=== PATIENT | male | born 1960 | race Caucasian/White ===

== ENCOUNTER 2017-08-01 17:12 | Inpatient (IN) | payer MEDICARE, MEDICAID ==
--- NOTE | 2017-08-01 18:21 | ED Physician Chart ---
ED Chief Complaint/HPI - Patient Information Date Seen:: 08/01/17 Time Seen:: 17:45 Chief Complaint:: Agitation History of Present Illness:: onset x 3 days of agitation and aggressive behavior; no report of SIs, trauma, H /As, S/T, neck pain, C/P, SOB, Abd. Pain, A/N/V/D/C, fever, chills, or urinary s /s Allergies:: Allergies Allergy/AdvReac Type Severity Reaction Status Date / Time benztropine Allergy Verified 08/01/17 17:39 Vitals:: Vital Signs - 8 hr 08/01/17 17:43 Temp 98.2 F HR 76 RR 16 BP 138/82 O2 Sat % 94 Historian:: Patient, EMS Review:: Nurse's Note Reviewed, EMS run form Reviewed ED Review of Systems - Review of Systems General/Constitutional: No fever, No chills, No weight loss, No weakness, No diaphoresis, No edema, No loss of appetite Skin: No skin lesions, No rash, No bruising Head: No headache, No light-headedness Eyes: No loss of vision, No pain, No diplopia ENT: No earache, No nasal drainage, No sore throat, No tinnitus Neck: No neck pain, No swelling, No thyromegaly, No stiffness, No mass noted Cardio Vascular: No chest pain, No palpitations, No PND, No orthopnea, No edema Pulmonary: No SOB, No cough, No sputum, No wheezing GI: No nausea, No vomiting, No diarrhea, No pain, No melena, No hematochezia, No constipation, No hematemesis G/U: No dysuria, No frequency, No hematuria, No nacturia Musculoskeletal: No bone or joint pain, No back pain, No muscle pain Endocrine: No polyuria, No polydipsia Psychiatric: Prior psych history, No depression, No anxiety, No suicidal ideation, No homicidal ideation, Auditory hallucination, No visual hallucination Hematopoietic: No bruising, No lymphadenopathy Allergic/Immuno: No urticaria, No angioedema Neurological: No syncope, No focal symptoms, No weakness, No paresthesia, No headache, No seizure, No dizziness, No confusion, No vertigo ED Past Medical History - Past Medical History Obtainable: Yes Past Medical History: HTN, DM Family History: Diabetes Melitus, HTN Social History: Non Smoker, No Alcohol, No Drug Use, Single, Care Facility Surgical History: None Psychiatricy History: Schizophrenia, Bipolar Medication: Reviewed ED Physical Exam - Physical Examination General/Constitutional: Awake, Well-developed, well-nourished, Alert, No distress, GCS 15, Non-toxic appearing, Ambulatory Head: Atraumatic Eyes: Lids, conjuctiva normal, PERRL, EOMI Skin: Nl inspection, No rash, No skin lesions, No ecchymosis, Well hydrated, No lymphadenopathy ENMT: External ears, nose nl, TM canals nl, Nasal exam nl, Lips, teeth, gums nl , Oropharynx nl, Tonsils nl Neck: Nontender, Full ROM w/o pain, No JVD, No nuchal rigidity, No bruit, No mass, No stridor Other Neck comments:: supple; no meningeal signs; no cervical tenderness Respiratory: Nl effort/Exclusion, Clear to Auscultation, No Wheeze/Rhonchi/Rales Cardio Vascular: RRR, No murmur, gallop, rubs, NL S1 S2, Carotid/Femoral/Distal pulses equal bilaterally GI: No tenderness/rebounding/guarding, No organomegaly, No hernia, Normal BS's, Nondistended, No mass/bruits, No McBurney tenderness Other GI comments:: no pulsatile masses : No CVA tenderness Extremities: No tenderness or effusion, Full ROM, normal strength in all extremities, No edema, Normal digits & nails Neuro/Psych: Alert/oriented, DTR's symmetric, Normal sensory exam, Normal motor strength, Judgement/insight normal, Mood normal, Normal gait, No focal deficits Other Neuro/Psych comments:: + Psychomotor Agitation; Mood/Affect: Labile; no SIs Misc: Normal back, No paraspinal tenderness ED Septic Shock - . Is Septic Shock (SBP<90, OR Lactate>4 mmol\L) present?: No - <6hrs of presentation: Vital Signs: Vital Signs - 8 hr 08/01/17 17:43 Temp 98.2 F HR 76 RR 16 BP 138/82 O2 Sat % 94
[2017-08-01 18:42] LABS: % BASOPHILS 0.7 % (0.0-2.0); % EOSINOPHILS 2.1 % (0.0-5.0); % LYMPHOCYTES 37.1 % (20.0-50.0); % MONOCYTES 7.8 % (2.0-10.0); % NEUTROPHILS 52.3 % (40.0-80.0); EOSINOPHILE ABSOLUTE 0.1 Th/cmm (0.1-0.4); HEMATOCRIT 41.6 % (41.0-60); HEMOGLOBIN 13.9 gm/dL (12-16); LYMPHOCYTE ABSOLUTE 2.5 Th/cmm (1.5-3.0); MEAN CELL VOLUME 93.2 fl (80-99); MEAN CORPUSCULAR HEMOGLOBIN 31.1 pg (26.0-30.0); MEAN CORPUSCULAR HGB CONC 33.4 pg (28.0-36.0); MEAN PLATELET VOLUME 7.2 fl; MONOCYTE ABSOLUTE 0.5 Th/cmm (0.3-1.0); NEUTROPHILE ABSOLUTE 3.6 Th/cmm (1.8-8.0); PLATELET COUNT 232 Th/cmm (150-400); RED BLOOD COUNT 4.46 Mil/cmm (4.30-5.70); RED CELL DISTRIBUTION WIDTH 12.8 % (11.5-20.0); WHITE BLOOD COUNT 6.7 Th/cmm (4.8-10.8)
[2017-08-01 18:51] LABS: ALB/GLOB RATIO 1.1 (1.0-1.8); ALBUMIN 3.7 gm/dL (4.2-5.5); ALKALINE PHOSPHATASE 43 U/L (34-104); BILIRUBIN,TOTAL 0.4 mg/dL (0.3-1.0); BUN - UREA NITROGEN 19 mg/dL (7-25); CALCIUM SERUM 9.6 mg/dL (8.6-10.3); CARBON DIOXIDE 26.1 mEq/L (21.0-31.0); CHLORIDE 101 mEq/L (98-107); CHOLESTEROL 124 mg/dL (<200); CREATININE - SERUM 0.9 mg/dL (0.7-1.3); GFR AFRICAN-AMERICAN > 60.0 ml/min (>90); GFR NON AFRICAN-AMERICAN > 60.0 ml/min; GLUCOSE 110 mg/dL (70-105); HDL -HIGH DENSITY LIPOPROTEIN 39 mg/dL (23-92); POTASSIUM SERUM 4.1 mEq/L (3.5-5.1); SALICYLATES (ASPIRIN) < 25.0 mg/L (30.0-100.0); SGOT 36 U/L (13-39); SGPT/ALT 32 U/L (7-52); SODIUM SERUM 131 mEq/L (136-145); TOTAL PROTEIN,SERUM 7.2 gm/dL (6.0-8.3); TRIGLYCERIDES 132 mg/dL (<150)
[2017-08-01 18:53] LABS: ACETAMINOPHEN < 10.0 ug/mL (10.0-30.0)
[2017-08-01] MEDS ORDERED: Acetaminophen 500 MG TAB PO PRN (21:18)
[2017-08-01] MEDS ORDERED: Albuterol Nebulizer 2.5mg/3mL HHN PRN (21:18)
[2017-08-01 21:32] VITALS: BP 121/65
[2017-08-01] MEDS ORDERED: Magnesium Hydroxide (MOM) 30 mL UDC PO PRN (21:32)
[2017-08-01] MEDS ORDERED: Maalox 30 mL Cup PO PRN (21:32)
[2017-08-01] MEDS ORDERED: Hydrocodone/APAP 10 mg/325 mg Tab PO PRN (22:12)
[2017-08-02] MEDS: Multivitamin Tab PO SCH (08:19)
[2017-08-02] MEDS ORDERED: Non-Formulary Item 1 EA (Diclofenac Sodium [Voltaren] 2 GM) TP SCH (09:00)
[2017-08-02] MEDS: Insulin Detemir 100 units/mL 10mL Vial SUBQ SCH (09:00)
[2017-08-02] MEDS ORDERED: METFORMIN HCL PO SCH (09:00)
[2017-08-02] MEDS: Diltiazem CD 120 mg 24H PO SCH (11:00)
--- NOTE | 2017-08-02 16:26 | History & Physical ---
ADMIT DATE: 08/01/2017 HISTORY OF PRESENT ILLNESS: He was admitted on 08/01/2017 on the psych unit basically with increasing agitation and aggressive behaviour for last several days. The patient came to the Emergency Room, had a complete workup done, was essentially normal. Remainder medical problems, surgical problems patient was admitted. REVIEW OF SYSTEMS: Except agitation everything was normal. PAST MEDICAL HISTORY: Hypertension and diabetes, otherwise normal. PHYSICAL EXAMINATION: GENERAL: The patient awake, alert, oriented male patient. VITAL SIGNS: Noted in chart. HEAD: Normal. ENT: Normal. NECK: Supple, nontender. LUNGS: Clear. CARDIOVASCULAR SYSTEM: S1, S2 heard. ABDOMEN: Soft. Bowel sounds are present. CENTRAL NERVOUS SYSTEM: Grossly normal. DIAGNOSES: Acute agitation, acute psychosis, history of hypertension, history of diabetes mellitus. PLAN: The patient is being and I will follow medically and psychiatrically. Dr. Jensen follow the patient. JOB# [id number]
[2017-08-02] MEDS: Atorvastatin Calcium 10 MG TAB PO SCH (20:43)
[2017-08-02] MEDS ORDERED: Non-Formulary Item 1 EA (Atorvastatin Calcium [Lipitor] 1 TAB) PO SCH (21:00)
[2017-08-02] MEDS ORDERED: TRAZODONE HCL PO SCH (21:00)
[2017-08-02] MEDS: Lidocaine 5% Patch TD SCH (21:09)
--- NOTE | 2017-08-02 21:54 | Psychosocial Evaluation ---
DATE OF SERVICE: PSYCHIATRIC INITIAL EVALUATION AND MENTAL STATUS EXAM AGE: The patient's age is 56. SEX: Male. PHYSICIAN: Dr. Jensen. CHIEF COMPLAINT: Agitation. HISTORY OF PRESENT ILLNESS: The patient is a 56-year-old male, who was transferred from [facility] because of increased agitation and striking out behavior. The patient had disturbing behavior in the custodial and the staff was not able to handle his behavior. He was in irritable and angry mood and staff was not able to tolerate his behavior and they were not able to function with his disrupting to others and to the staff. The patient was transferred to the hospital. The patient is still hypertalkative and still had episodes of threatening others and is still extremely angry and irritable. PAST PSYCHIATRIC HISTORY: The patient has history of psychosis and the patient is taking trazodone and Zyprexa. PAST MEDICAL HISTORY: The patient has insulin-dependent diabetes mellitus. Also has arthritis and hypertension. SOCIAL HISTORY: The patient lives in [facility]. The patient is for many years. He has one son. He denies legal issues or abuse issues. He is on disability. ALLERGIES: COGENTIN. MENTAL STATUS EXAMINATION: The patient appears older than his stated age. Irritable mood. Anxious. Flat affect. Hypertalkative. Thought processes are circumstantial and tangential with occasional flight of ideas. The patient denies any auditory or visual hallucinations, but seems to be paranoid and delusional and seems to be at times responding and talking to self. The patient denies any thoughts of suicide or homicide. The patient is alert and oriented to time, place, person, and situation. Intact, immediate, recent and remote memories. Fair insight. Poor judgment. Seems to be of average intelligence based on his verbal ability. ASSESSMENT/PRIMARY DIAGNOSES: Chronic paranoid schizophrenia with acute exacerbation. TREATMENT PLAN: We will continue monitoring his behavior and his condition closely and continue current psychotropic medications and followup. [facility]# [id number]
[2017-08-03] MEDS: Diltiazem CD 120 mg 24H PO SCH (08:39)
[2017-08-03] MEDS: Multivitamin Tab PO SCH (08:40)
[2017-08-03] MEDS: OLANZapine 5 mg Oral Disintegrating Tab PO SCH (10:36)
[2017-08-03] MEDS: Insulin Detemir 100 units/mL 10mL Vial SUBQ SCH (10:44)
--- NOTE | 2017-08-03 11:36 | General Progress Note ---
Subjective - Review of Systems Events since last encounter: patient is irritable with no signs of pain Objective - Results Result Diagrams: 08/01/17 18:28 08/01/17 18: Recent Labs: Laboratory Last Values WBC 6.7 Th/cmm (4.8-10.8) 08/01/17 18: RBC 4.46 Mil/cmm (4.30-5.70) 08/01/17 18 Hgb 13.9 gm/dL (12-16) 08/01/17 Hct 41.6 % (41.0-60) 08/01/17 18 MCV 93.2 fl (80-99) 08/01/17 18: MCH 31.1 pg (26.0-30.0) H 08/01/17 MCHC Differential 33.4 pg (28.0-36.0) 08/01/17 RDW 12.8 % (11.5-20.0) 08/01/17 Plt Count 232 Th/cmm (150-400) 08/01/17 18 MPV 7.2 fl 08/01/17 18: Neutrophils % 52.3 % (40.0-80.0) 08/01/17: Lymphocytes % 37.1 % (20.0-50.0) 08/01/17 Monocytes % 7.8 % (2.0-10.0) 08/01/17: Eosinophils % 2.1 % (0.0-5.0) 08/01/17: Basophils % 0.7 % (0.0-2.0) 08/01/17 18: Sodium 131 mEq/L (136-145) L 08/01/17 18: Potassium 4.1 mEq/L (3.5-5.1) 08/01/17: Chloride 101 mEq/L (98-107) 08/01/17 18 Carbon Dioxide 26.1 mEq/L (21.0-31.0) 08/01/17 18 Anion Gap 8.0 (7.0-16.0) 08/01/17 18: BUN 19 mg/dL (7-25) 08/01/17 18 Creatinine 0.9 mg/dL (0.7-1.3) 08/01/17 18 Est GFR ( Amer) > 60.0 ml/min (>90) 08/01/17 18 Est GFR (Non-Af Amer) > 60.0 ml/min 08/01/17 18 BUN/Creatinine Ratio 21.1 08/01/17 18: Glucose 110 mg/dL (70-105) H 08/01/17 Hemoglobin A1c % 6.0 % (4.0-6.0) 08/01/17 18 Calcium 9.6 mg/dL (8.6-10.3) 08/01/17 Total Bilirubin 0.4 mg/dL (0.3-1.0) 08/01/17: AST 36 U/L (13-39) 08/01/17 ALT 32 U/L (7-52) 08/01/17: Alkaline Phosphatase 43 U/L (34-104) 08/01/17: Total Protein 7.2 gm/dL (6.0-8.3) 08/01/17: Albumin 3.7 gm/dL (4.2-5.5) L 08/01/17: Globulin 3.5 gm/dL 08/01/17 Albumin/Globulin Ratio 1.1 (1.0-1.8) 08/01/17 18: Triglycerides 132 mg/dL (<150) 08/01/17: Cholesterol 124 mg/dL (<200) 08/01/17: LDL Cholesterol Direct 61 mg/dL (75-193) L 08/01/17 18: HDL Cholesterol 39 mg/dL (23-92) 08/01/17 18: TSH 0.28 uIU/ml (0.34-5.60) L 08/01/17 Salicylates < 25.0 mg/L (30.0-100.0) L 08/01/17 18: Acetaminophen < 10.0 ug/mL (10.0-30.0) L 08/01/17 18: Ethyl Alcohol < 10 mg/dL (0-10) 08/01/17 18: - Physical Exam Vitals and I&O: Vital Signs Temp 97.2 F 08/02/17 19:56 Pulse 89 08/03/17 08:40 Resp 20 08/02/17 19:56 BP 139/81 08/03/17 08:40 Pulse Ox 97 08/02/17 19:56 Intake & Output 08/02/17 08/03/17 08/03/17 18:59 06:59 18:59 Intake Total 1600 240 Balance 1600 240 Intake: Oral 1600 240 Other: # Voids 3 2 Active Medications: Current Medications Acetaminophen (Tylenol Extra Strength) 500 mg PO Q6H PRN PRN Reason: Pain (Mild) Stop: 09/30/17 21:17 Acetaminophen (Tylenol) 650 mg PO Q4HR PRN PRN Reason: Mild Pain / Temp above 100 Stop: 09/30/17 21:31 Acetaminophen/Hydrocodone Bitart ([place] 10 Mg/325 Mg) 1 tab PO Q6H PRN PRN Reason: Pain (Severe) Stop: 09/30/17 22:11 Al Hydrox/Mg Hydrox/Simethicone (Maalox) 30 ml PO Q4HR PRN PRN Reason: GI DISTRESS Stop: 09/30/17 21:31 Albuterol Sulfate (Albuterol 2.5mg/3ml Neb Ud) 2.5 mg HHN Q6HRT PRN PRN Reason: Wheezing Stop: 09/30/17 21:17 Aspirin (Ecotrin) 81 mg PO DAILY [facility] Stop: 10/01/17 09:59 Last Admin: 08/03/17 08:40 Dose: 81 mg Atorvastatin Calcium (Lipitor) 20 mg PO [facility] PRN Reason: Protocol Stop: 10/01/17 20:59 Last Admin: 08/02/17 20:43 Dose: 20 mg Benztropine Mesylate (Cogentin) 0.5 mg PO Q12H PRN PRN Reason: eps/drooling Stop: 09/30/17 21:17 Diltiazem HCl (Cardizem Cd) 120 mg PO DAILY [facility] Stop: 10/01/17 09:59 Last Admin: 08/03/17 08:39 Dose: 120 mg Divalproex Sodium (Depakote Dr) 500 mg PO [facility] PRN Reason: Protocol Stop: 10/01/17 20:59 Last Admin: 08/02/17 20:44 Dose: 500 mg Docusate Sodium (Colace) 100 mg PO DAILY [facility] Stop: 10/01/17 09:59 Last Admin: 08/03/17 08:41 Dose: 100 mg Gabapentin (Neurontin) 300 mg PO TID [facility] Stop: 10/01/17 09:59 Last Admin: 08/03/17 08:39 Dose: 300 mg Ibuprofen (Motrin) 800 mg PO TID [facility] Stop: 10/01/17 08:59 Last Admin: 08/03/17 08:39 Dose: 800 mg Insulin Detemir (Levemir Insulin) 30 units SUBQ DAILY [facility] Stop: 10/01/17 08:59 Last Admin: 08/03/17 10:44 Dose: 30 units Lidocaine (Lidoderm 5% Patch) 1 patch TD HS [facility] Stop: 10/01/17 20:59 Last Admin: 08/02/17 21:09 Dose: 1 patch Lorazepam (Ativan) 0.5 mg PO Q4HR PRN; Protocol PRN Reason: Anxiety Stop: 08/31/17 21:31 Last Admin: 08/02/17 08:19 Dose: 0.5 mg Magnesium Hydroxide (Milk Of Magnesia) 30 ml PO HS PRN PRN Reason: Constipation Metformin HCl (Glucophage) 1,000 mg PO BIDWM [facility] Stop: 10/01/17 07:59 Last Admin: 08/03/17 08:41 Dose: 1,000 mg Methocarbamol (Robaxin) 1,000 mg PO Q8H PRN PRN Reason: Spasms Stop: 09/30/17 22:11 Miscellaneous (Diclofenac Sodium [Voltaren]) 2 gm TP TID [facility] Stop: 10/01/17 08:59 Multivitamins/Vitamin C (Theragran) 1 tab PO DAILY [facility] Stop: 10/01/17 08:59 Last Admin: 08/03/17 08:40 Dose: 1 tab Olanzapine (Zyprexa) 20 mg PO HS [facility] PRN Reason: Protocol Stop: 10/01/17 20:59 Last Admin: 08/02/17 21:09 Dose: 20 mg Olanzapine (Zyprexa Zydis) 5 mg PO DAILY [facility] PRN Reason: Protocol Stop: 10/02/17 08:59 Last Admin: 08/03/17 10:36 Dose: 5 mg Ondansetron HCl (Zofran Odt) 4 mg PO Q8H PRN PRN Reason: Nausea / Vomiting Stop: 09/30/17 22:11 Propranolol HCl (Inderal) 10 mg PO BID [facility] Stop: 10/01/17 08:59 Last Admin: 08/03/17 08:40 Dose: 10 mg Trazodone HCl (Desyrel) 400 mg PO HS [facility] PRN Reason: Protocol Stop: 10/01/17 20:59 Last Admin: 08/02/17 20:43 Dose: 400 mg Zolpidem Tartrate (Ambien) 5 mg PO HS PRN PRN Reason: Insomnia Stop: 09/30/17 21:31
[2017-08-03] MEDS: INSULIN ASPART SLIDING SCALE 100 UNITS/ML UNIT SUBQ SCH ×2 (16:16→20:32)
[2017-08-03] MEDS: Atorvastatin Calcium 10 MG TAB PO SCH (20:27)
[2017-08-03] MEDS: Lidocaine 5% Patch TD SCH (21:30)
[2017-08-04] MEDS: INSULIN ASPART SLIDING SCALE 100 UNITS/ML UNIT SUBQ SCH ×3 (06:39→17:52)
[2017-08-04] MEDS: Insulin Detemir 100 units/mL 10mL Vial SUBQ SCH (09:50)
[2017-08-04] MEDS: Multivitamin Tab PO SCH (09:53)
[2017-08-04] MEDS: OLANZapine 5 mg Oral Disintegrating Tab PO SCH (09:55)
[2017-08-04] MEDS: Diltiazem CD 120 mg 24H PO SCH (09:55)
--- NOTE | 2017-08-04 17:49 | Internal Medicine Prog Note ---
Internal Medicine Subjective - Subjective Service Date: 08/04/17 Patient seen and examined:: with staff Patient is:: awake, verbal, denies any new complaints Per staff patient has:: tolerating meds Internal Medicine Objective - Results Result Diagrams: 08/01/17 18:08/01/17 18: Recent Labs: Laboratory Last Values WBC 6.7 Th/cmm (4.8-10.8) 08/01/17 18: RBC 4.46 Mil/cmm (4.30-5.70) 08/01/17 18: Hgb 13.9 gm/dL (12-16) 08/01/17: Hct 41.6 % (41.0-60) 08/01/17: MCV 93.2 fl (80-99) 08/01/17: MCH 31.1 pg (26.0-30.0) H 08/01/17 MCHC Differential 33.4 pg (28.0-36.0) 08/01/17 RDW 12.8 % (11.5-20.0) 08/01/17 Plt Count 232 Th/cmm (150-400) 08/01/17 18: MPV 7.2 fl 08/01/17: Neutrophils % 52.3 % (40.0-80.0) 08/01/17: Lymphocytes % 37.1 % (20.0-50.0) 08/01/17: Monocytes % 7.8 % (2.0-10.0) 08/01/17: Eosinophils % 2.1 % (0.0-5.0) 08/01/17: Basophils % 0.7 % (0.0-2.0) 08/01/17: Sodium 131 mEq/L (136-145) L 08/01/17: Potassium 4.1 mEq/L (3.5-5.1) 08/01/17 18: Chloride 101 mEq/L (98-107) 08/01/17: Carbon Dioxide 26.1 mEq/L (21.0-31.0) 08/01/17: Anion Gap 8.0 (7.0-16.0) 08/01/17 18: BUN 19 mg/dL (7-25) 08/01/17 18: Creatinine 0.9 mg/dL (0.7-1.3) 08/01/17 Est GFR ( Amer) > 60.0 ml/min (>90) 08/01/17 18 Est GFR (Non-Af Amer) > 60.0 ml/min 08/01/17 18 BUN/Creatinine Ratio 21.1 08/01/17 18: Glucose 110 mg/dL (70-105) H 08/01/17 18 Hemoglobin A1c % 6.0 % (4.0-6.0) 08/01/17 Calcium 9.6 mg/dL (8.6-10.3) 08/01/17 Total Bilirubin 0.4 mg/dL (0.3-1.0) 08/01/17: AST 36 U/L (13-39) 08/01/17: ALT 32 U/L (7-52) 08/01/17: Alkaline Phosphatase 43 U/L (34-104) 08/01/17: Total Protein 7.2 gm/dL (6.0-8.3) 08/01/17 Albumin 3.7 gm/dL (4.2-5.5) L 08/01/17 Globulin 3.5 gm/dL 08/01/17 Albumin/Globulin Ratio 1.1 (1.0-1.8) 08/01/17 18: Triglycerides 132 mg/dL (<150) 08/01/17: Cholesterol 124 mg/dL (<200) 08/01/17 18 LDL Cholesterol Direct 61 mg/dL (75-193) L 08/01/17 18 HDL Cholesterol 39 mg/dL (23-92) 08/01/17 TSH 0.28 uIU/ml (0.34-5.60) L 08/01/17 18 Salicylates < 25.0 mg/L (30.0-100.0) L 08/01/17 18: Acetaminophen < 10.0 ug/mL (10.0-30.0) L 08/01/17 18:28 Ethyl Alcohol < 10 mg/dL (0-10) 08/01/17 18:28 RPR NONREACTIVE (NONREACTIVE) 08/01/17 18:28 - Physical Exam Vitals and I&O: Vital Signs Temp 98.2 F 08/04/17 14:14 Pulse 86 08/04/17 14:14 Resp 20 08/04/17 14:14 BP 103/64 08/04/17 14:14 Pulse Ox 98 08/04/17 14:14 Active Medications: Current Medications Acetaminophen (Tylenol Extra Strength) 500 mg PO Q6H PRN PRN Reason: Pain (Mild) Stop: 09/30/17 21:17 Acetaminophen (Tylenol) 650 mg PO Q4HR PRN PRN Reason: Mild Pain / Temp above 100 Stop: 09/30/17 21:31 Acetaminophen/Hydrocodone Bitart ([place] 10 Mg/325 Mg) 1 tab PO Q6H PRN PRN Reason: Pain (Severe) Stop: 09/30/17 22:11 Last Admin: 08/03/17 22:32 Dose: 1 tab Al Hydrox/Mg Hydrox/Simethicone (Maalox) 30 ml PO Q4HR PRN PRN Reason: GI DISTRESS Stop: 09/30/17 21:31 Albuterol Sulfate (Albuterol 2.5mg/3ml Neb Ud) 2.5 mg HHN Q6HRT PRN PRN Reason: Wheezing Stop: 09/30/17 21:17 Aspirin (Ecotrin) 81 mg PO DAILY [facility] Stop: 10/01/17 09:59 Last Admin: 08/04/17 09:51 Dose: 81 mg Atorvastatin Calcium (Lipitor) 20 mg PO HS [facility] PRN Reason: Protocol Stop: 10/01/17 20:59 Last Admin: 08/03/17 20:27 Dose: 20 mg Benztropine Mesylate (Cogentin) 0.5 mg PO Q12H PRN PRN Reason: eps/drooling Stop: 09/30/17 21:17 Diltiazem HCl (Cardizem Cd) 120 mg PO DAILY [facility] Stop: 10/01/17 09:59 Last Admin: 08/04/17 09:55 Dose: 120 mg Divalproex Sodium (Depakote Dr) 500 mg PO HS [facility] PRN Reason: Protocol Stop: 10/01/17 20:59 Last Admin: 08/03/17 20:28 Dose: 500 mg Docusate Sodium (Colace) 100 mg PO DAILY [facility] Stop: 10/01/17 09:59 Last Admin: 08/04/17 09:53 Dose: 100 mg Gabapentin (Neurontin) 300 mg PO TID [facility] Stop: 10/01/17 09:59 Last Admin: 08/04/17 14:54 Dose: 300 mg Ibuprofen (Motrin) 800 mg PO TID [facility] Stop: 10/01/17 08:59 Last Admin: 08/04/17 14:54 Dose: 800 mg Insulin Aspart (Novolog Insulin Sliding Scale) 0 units SUBQ ACHS [facility] PRN Reason: Protocol Stop: 10/02/17 16:29 Last Admin: 08/04/17 11:49 Dose: Not Given Insulin Detemir (Levemir Insulin) 30 units SUBQ DAILY [facility] Stop: 10/01/17 08:59 Last Admin: 08/04/17 09:50 Dose: 30 units Lidocaine (Lidoderm 5% Patch) 1 patch TD HS [facility] Stop: 10/01/17 20:59 Last Admin: 08/03/17 21:30 Dose: 1 patch Lorazepam (Ativan) 0.5 mg PO Q4HR PRN; Protocol PRN Reason: Anxiety Stop: 08/31/17 21:31 Last Admin: 08/03/17 20:27 Dose: 0.5 mg Magnesium Hydroxide (Milk Of Magnesia) 30 ml PO HS PRN PRN Reason: Constipation Metformin HCl (Glucophage) 1,000 mg PO BIDWM [facility] Stop: 10/01/17 07:59 Last Admin: 08/04/17 09:00 Dose: 1,000 mg Methocarbamol (Robaxin) 1,000 mg PO Q8H PRN PRN Reason: Spasms Stop: 09/30/17 22:11 Last Admin: 08/03/17 22:33 Dose: 1,000 mg Miscellaneous (Diclofenac Sodium [Voltaren]) 2 gm TP TID [facility] Stop: 10/01/17 08:59 Multivitamins/Vitamin C (Theragran) 1 tab PO DAILY [facility] Stop: 10/01/17 08:59 Last Admin: 08/04/17 09:53 Dose: 1 tab Mupirocin (Bactroban Oint) 1 appl NS BID [facility] Stop: 08/08/17 09:01 Last Admin: 08/04/17 09:55 Dose: 1 appl Olanzapine (Zyprexa) 20 mg PO HS [facility] PRN Reason: Protocol Stop: 10/01/17 20:59 Last Admin: 08/03/17 20:28 Dose: 20 mg Olanzapine (Zyprexa Zydis) 5 mg PO DAILY [facility] PRN Reason: Protocol Stop: 10/02/17 08:59 Last Admin: 08/04/17 09:55 Dose: 5 mg Ondansetron HCl (Zofran Odt) 4 mg PO Q8H PRN PRN Reason: Nausea / Vomiting Stop: 09/30/17 22:11 Propranolol HCl (Inderal) 10 mg PO BID [facility] Stop: 10/01/17 08:59 Last Admin: 08/04/17 09:53 Dose: 10 mg Trazodone HCl (Desyrel) 400 mg PO HS [facility] PRN Reason: Protocol Stop: 10/01/17 20:59 Last Admin: 08/03/17 20:25 Dose: 400 mg Zolpidem Tartrate (Ambien) 5 mg PO HS PRN PRN Reason: Insomnia Stop: 09/30/17 21:31 Last Admin: 08/03/17 20:28 Dose: 5 mg General: alert HEENT: NC/AT, PERRLA Neck: Supple Lungs: CTAB Abdomen: soft, non-tender, non-distended Extremities: clear Neurological: alert Internal Medicine Assmt/Plan - Assessment Assessment: acute agitation acute psychosis htn dm - Plan Plan: continue current orders
--- NOTE | 2017-08-05 19:57 | Discharge Summary ---
DATE OF DISCHARGE: DATE OF ADMISSION: 08/01/2017 DATE OF DISCHARGE: 08/04/2017 PATIENT'S AGE: 56. SEX: Male. PHYSICIAN: Parag Jensen M.D., M.P.H. FINAL DIAGNOSES: PRIMARY DIAGNOSES: Schizoaffective disorder, bipolar type, with psychotic features. REASON FOR HOSPITALIZATION: The patient was admitted to the hospital because of increased agitation and striking out behavior and disturbing the milieu in [facility] where he has been living. HOSPITAL COURSE: The patient continued to be agitated and in irritable mood. The patient also continued to take Zyprexa in a dose of 20 mg every day as well as trazodone 400 mg at bedtime. Gradually, the patient was calmer and he was less agitated and less irritable. The patient returned back to [facility]. Physical exam of the patient showed that the patient has insulin-dependent diabetes as well as hypertension and arthritis. No major medical problems while in the unit. AFTER DISCHARGE PLANS: The patient returned to [facility] with plans for outpatient treatment there. EXPECTED OUTCOME AFTER DISCHARGE: Guarded because of his history of irritability and mood. JOB# [id number]
--- NOTE | 2017-08-05 22:20 | Progress Notes ---
DATE: 08/03/2017 SUBJECTIVE: Chart reviewed and the patient interviewed. Also discussed the patient's condition with the staff and reviewed records and labs. The patient is still restless and is still easily agitated. The patient also is yelling and screaming. The patient also is interacting more with others, but at the same time, is at times threatening and is still loud. Otherwise, the patient is compliant with taking his medications with no side effects of medications. ASSESSMENT: The patient is still psychotic and can be dangerous to others. TREATMENT PLAN: We will increase Zyprexa to 5 mg in the morning and 20 mg at bedtime and we will continue to follow up his behavior and his condition closely. JOB# [id number]
== END 2017-08-04 20:20 | disposition home or self-care (01) | DRG 885 ==
LOC: ER 17:12 → GERO2 20:09
PROVIDERS: ADMIT Psychiatry & Neurology Psychiatry; ATTEND Psychiatry & Neurology Psychiatry
DX: F25.0 Schizoaffective disorder, bipolar type (principal); E11.9 Type 2 diabetes mellitus without complications; F23 Brief psychotic disorder; I10 Essential (primary) hypertension; M19.90 Unspecified osteoarthritis, unspecified site; Z88.8 Allergy status to other drugs, medicaments and biological substances; Z83.3 Family history of diabetes mellitus; Z82.49 Family history of ischemic heart disease and other diseases of the circulatory system
CPT/HCPCS: 36415-UA; 80053-TC; 80061-TC; 80320-TC; 80329-TC; 83036-90; 84443-TC; 85025-TC; 86592-TC; 93005; J1815; J7051

== ENCOUNTER 2017-12-17 12:07 | Inpatient (IN) | payer MEDICARE, MEDICAID ==
--- NOTE | 2017-12-17 12:31 | ED Physician Chart ---
ED Chief Complaint/HPI - Patient Information Date Seen:: 12/17/17 Time Seen:: 12:15 Chief Complaint:: agitation History of Present Illness:: 57 yr old male for psych eval takes zyprexa for bipolar with schizo affective disorder for increased agitation Allergies:: Allergies Allergy/AdvReac Type Severity Reaction Status Date / Time benztropine Allergy Verified 08/01/17 17:39 Vitals:: Vital Signs - 8 hr 12/17/17 12:09 Temp 97 F HR 63 RR 18 BP 148/85 O2 Sat % 94 ED Review of Systems - Review of Systems General/Constitutional: No fever, No chills, No weight loss, No weakness, No diaphoresis, No edema, No loss of appetite Skin: No skin lesions, No rash, No bruising Head: No headache, No light-headedness Eyes: No loss of vision, No pain, No diplopia ENT: No earache, No nasal drainage, No sore throat, No tinnitus Neck: No neck pain, No swelling, No thyromegaly, No stiffness, No mass noted Cardio Vascular: No chest pain, No palpitations, No PND, No orthopnea, No edema Pulmonary: No SOB, No cough, No sputum, No wheezing GI: No nausea, No vomiting, No diarrhea, No pain, No melena, No hematochezia, No constipation, No hematemesis G/U: No dysuria, No frequency, No hematuria Musculoskeletal: No bone or joint pain, No back pain, No muscle pain Endocrine: No polyuria, No polydipsia Psychiatric: Prior psych history Hematopoietic: No bruising, No lymphadenopathy Allergic/Immuno: No urticaria, No angioedema Neurological: No syncope, No focal symptoms, No weakness, No paresthesia, No headache, No seizure, No dizziness, No confusion, No vertigo ED Past Medical History - Past Medical History Past Medical History: Dementia, Other (bipolar disorder schizoaffective disorder ) Family Medical History - Family Member Mother History Unknown: Yes Ethnicity: Unknown Living Status: Unknown ED Physical Exam - Physical Examination General/Constitutional: Awake, Well-developed, well-nourished, Alert, No distress, GCS 15, Non-toxic appearing, Ambulatory Head: Atraumatic Eyes: Lids, conjuctiva normal, PERRL, EOMI Skin: Nl inspection, No rash, No skin lesions, No ecchymosis, Well hydrated, No lymphadenopathy ENMT: External ears, nose nl, Nasal exam nl, Lips, teeth, gums nl Neck: Nontender, Full ROM w/o pain, No JVD, No nuchal rigidity, No bruit, No mass, No stridor Respiratory: Nl effort/Exclusion, Clear to Auscultation, No Wheeze/Rhonchi/Rales Cardio Vascular: RRR, No murmur, gallop, rubs, NL S1 S2 GI: No tenderness/rebounding/guarding, No organomegaly, No hernia, Normal BS's, Nondistended, No mass/bruits, No McBurney tenderness : No CVA tenderness Extremities: No tenderness or effusion, Full ROM, normal strength in all extremities, No edema, Normal digits & nails Neuro/Psych: Alert/oriented, DTR's symmetric, Normal sensory exam, Normal motor strength, Judgement/insight normal, Mood normal, Normal gait, No focal deficits Misc: Normal back, No paraspinal tenderness ED Assessment - Assessment General Assessment: schizoaffective disorder on zyprexa with agitation ED Septic Shock - . Is Septic Shock (SBP<90, OR Lactate>4 mmol\L) present?: No - <6hrs of presentation: Vital Signs: Vital Signs - 8 hr 12/17/17 12:09 Temp 97 F HR 63 RR 18 BP 148/85 O2 Sat % 94 ED Reassessment (Disposition) - Diagnosis Diagnosis:: schizoaffective disorder for psych eval - Patient Disposition Discharge/Transfer:: Acute Care w/in this hosp
[2017-12-17 12:39] LABS: URINE MICROSCOPIC INDICATED? YES; URINE SOURCE CLEAN C
[2017-12-17 12:42] LABS: % BASOPHILS 0.7 % (0.0-2.0); % EOSINOPHILS 1.5 % (0.0-5.0); % LYMPHOCYTES 46.5 % (20.0-50.0); % MONOCYTES 7.5 % (2.0-10.0); % NEUTROPHILS 43.8 % (40.0-80.0); EOSINOPHILE ABSOLUTE 0.1 Th/cmm (0.1-0.4); HEMATOCRIT 42.2 % (41.0-60); HEMOGLOBIN 14.2 gm/dL (12-16); LYMPHOCYTE ABSOLUTE 2.6 Th/cmm (1.5-3.0); MEAN CELL VOLUME 94.6 fl (80-99); MEAN CORPUSCULAR HEMOGLOBIN 31.7 pg (26.0-30.0); MEAN CORPUSCULAR HGB CONC 33.5 pg (28.0-36.0); MEAN PLATELET VOLUME 7.2 fl; MONOCYTE ABSOLUTE 0.4 Th/cmm (0.3-1.0); NEUTROPHILE ABSOLUTE 2.5 Th/cmm (1.8-8.0); PLATELET COUNT 240 Th/cmm (150-400); RED BLOOD COUNT 4.46 Mil/cmm (4.30-5.70); RED CELL DISTRIBUTION WIDTH 12.7 % (11.5-20.0); WHITE BLOOD COUNT 5.6 Th/cmm (4.8-10.8)
[2017-12-17 12:52] LABS: URINE BILIRUBIN NEGATIVE (NEGATIVE); URINE BLOOD NEGATIVE (NEGATIVE); URINE GLUCOSE (UA) NEGATIVE (NEGATIVE); URINE KETONE NEGATIVE (NEGATIVE); URINE LEUKOCYTE ESTERASE NEGATIVE (NEGATIVE); URINE NITRATE NEGATIVE (NEGATIVE); URINE PH 7.5 (4.6 - 8.0); URINE PROTEIN NEGATIVE (NEGATIVE); URINE UROBILINOGEN 0.2 E.U./dL (0.2 - 1.0)
[2017-12-17 12:55] LABS: ALB/GLOB RATIO 1.2 (1.0-1.8); ALBUMIN 3.6 gm/dL (4.2-5.5); ALKALINE PHOSPHATASE 34 U/L (34-104); ANION GAP 12.1 (7.0-16.0); BILIRUBIN,TOTAL 0.4 mg/dL (0.3-1.0); BUN - UREA NITROGEN 15 mg/dL (7-25); CALCIUM SERUM 9.6 mg/dL (8.6-10.3); CARBON DIOXIDE 25.1 mEq/L (21.0-31.0); CHLORIDE 105 mEq/L (98-107); CREATININE - SERUM 0.7 mg/dL (0.7-1.3); GFR AFRICAN-AMERICAN > 60.0 ml/min (>90); GFR NON AFRICAN-AMERICAN > 60.0 ml/min; GLUCOSE 106 mg/dL (70-105); POTASSIUM SERUM 4.2 mEq/L (3.5-5.1); SGOT 42 U/L (13-39); SGPT/ALT 39 U/L (7-52); SODIUM SERUM 138 mEq/L (136-145); TOTAL PROTEIN,SERUM 6.6 gm/dL (6.0-8.3)
[2017-12-17 12:56] LABS: URINE CLARITY CLEAR (CLEAR); URINE COLOR YELLOW
[2017-12-17 13:00] LABS: URINE BACTERIA RARE /hpf (NONE SEEN); URINE EPITHELIAL CELLS RARE /lpf (FEW); URINE RBC NONE SEEN /hpf (0-5); URINE WBC 0-2 /hpf (0-5)
[2017-12-17 13:12] LABS: AMPHETAMINE URINE NEGATIVE (NEGATIVE); BARBITURATES URINE NEGATIVE (NEGATIVE); BENZODIAZEPINES QUAL URINE NEGATIVE (NEGATIVE); CANNABINOID THC NEGATIVE (NEGATIVE); COCAINE METABOLITE QUAL URINE NEGATIVE (NEGATIVE); METHADONE URINE NEGATIVE (NEGATIVE); METHAMPHETAMINES QUAL URINE NEGATIVE (NEGATIVE); OPIATES (MORPHINE) QUAL. URINE POSITIVE (NEGATIVE); PHENCYCLIDINE (PCP) URINE NEGATIVE (NEGATIVE); TRICYCLICS (TCA) QUAL. URINE NEGATIVE (NEGATIVE)
[2017-12-17 16:58] VITALS: BP 112/75
[2017-12-17] MEDS: Albuterol Nebulizer 2.5mg/3mL HHN PRN (17:16)
[2017-12-17] MEDS ORDERED: Maalox 30 mL Cup PO PRN (18:20)
[2017-12-17] MEDS ORDERED: Magnesium Hydroxide (MOM) 30 mL UDC PO PRN (18:20)
[2017-12-17] MEDS ORDERED: Non-Formulary Item 1 EA (Atorvastatin Calcium [Lipitor] 40 MG) PO SCH (21:00)
[2017-12-17] MEDS ORDERED: Non-Formulary Item 1 EA (Melatonin [Melatonin] 3 MG) PO SCH (21:00)
--- NOTE | 2017-12-18 08:44 | Diagnostic Imaging Report ---
Portable chest x-ray HISTORY: Shortness of breath The overall heart size is difficult to assess with portable technique in a poor inspiration. No acute focal pulmonary processes. Diffuse degenerative changes seen throughout the spine. Chronic deformity noted about the right shoulder region. IMPRESSION: 1. No acute pulmonary processes
[2017-12-18] MEDS: Aspirin 81mg Chewable Tab PO SCH (08:47)
[2017-12-18] MEDS: Multivitamin Tab PO SCH (08:49)
[2017-12-18] MEDS: Nicotine 14 mg/24 hr Tdm TD SCH (08:54)
[2017-12-18] MEDS ORDERED: Non-Formulary Item 1 EA (Metformin Hcl [Fortamet] 1,000 MG) PO SCH (09:00)
[2017-12-18] MEDS ORDERED: GLIPIZIDE PO SCH ×2 (09:00→17:00)
[2017-12-18] MEDS ORDERED: PROPRANOLOL HCL MC SCH (09:00)
[2017-12-18] MEDS: Albuterol Nebulizer 2.5mg/3mL HHN PRN ×2 (09:58→15:21)
--- NOTE | 2017-12-18 11:04 | History & Physical ---
ADMIT DATE: 12/18/2017 PATIENT'S IDENTIFICATION: A 57-year-old male. CHIEF COMPLAINT: "I got mad on female employee in a [facility]." HISTORY OF PRESENT ILLNESS: A 57-year-old resident of [facility], has history of type 2 diabetes, COPD, hypertension, psychotic disorder, history of BPH without bladder outlet obstruction, resides at [facility], brought into the Emergency Room from [facility] after the patient was noted to have aggressive behavior at [facility]. The patient was seen by Emergency Room MD and subsequently admitted here in Geropsych Unit for further treatment. PAST MEDICAL HISTORY: Remarkable for: 1. Diabetes. 2. Hypertension. 3. Seizure disorder. 4. Bipolar disorder. 5. Psychotic disorder. 6. Depression. 7. DJD. 8. Chronic pain syndrome. 9. Questionable dementia. MEDICATIONS: In a [facility], the patient is taking multiple medications, which includes Tylenol, aspirin, Colace, Usk, trazodone, nebulizer treatment with albuterol and Atrovent, Lipitor, Depakote, gabapentin, glipizide, melatonin, Namenda, metformin, nicotine patch, Zyprexa, propranolol, and Flomax. ALLERGIES: The patient is allergic to COGENTIN. SOCIAL HISTORY: The patient lives in a [facility]. The patient has history of smoking cigarette. No alcohol or drug abuse. FAMILY MEDICAL HISTORY: Remarkable for diabetes. REVIEW OF SYSTEMS: The patient is complaining of pain at the knee and back area. PAST SURGICAL HISTORY: Remarkable for knee replacement as well as exploratory laparotomy for perforated bowel. REVIEW OF SYSTEMS: The patient denies any headache, blurred vision, double vision, dysphagia, odynophagia, runny nose, stuffy nose, fever, chills, cough, chest pain, shortness of breath, palpitation, dizziness, nausea, vomiting, diarrhea, dysuria, hematuria, hematochezia, melena. No seizure or syncopal episode. PHYSICAL EXAMINATION: GENERAL: The patient is alert, awake, oriented, lying in the bed without any acute distress. VITAL SIGNS: Temperature 97.2, pulse 90, respiratory rate is 20, blood pressure is 130/70. HEENT: Normocephalic, atraumatic. Extraocular muscles are intact. Tongue was pink and coated. Poor dentition noted. No oral lesion noted. No sinus tenderness. External auditory canal and tympanic membranes are well visualized. NECK: Supple. No JVD. No hepatojugular reflux. No lymphadenopathy, thyromegaly, or carotid bruit. HEART: Both heart sounds are regular. No S3. No S4. No murmur. CHEST AND LUNGS: Equal in expansion. No expiratory wheezing. ABDOMEN: Soft. Previously done exploratory laparotomy surgical scar noted. Bowel sounds present. No hepatosplenomegaly. No palpable mass. EXTREMITIES: No edema, no cyanosis, no clubbing. Peripheral pulses are +1. No calf tenderness noted. NEUROLOGIC: Alert, awake, following commands. 2-12 cranial nerves are intact. Power in upper and lower extremities 5+ and sensory touch intact. [place] in both toes are going down. No cerebral sign. AVAILABLE DIAGNOSTIC DATA: Urinalysis is normal. Alkaline phosphatase is normal. SGOT, SGPT is 42 and 39, albumin of 3.6, glucose of 106, BUN and creatinine are 15 and 0.7. CBC, white count of 5.6, hemoglobin 14.2, platelet count 240. Urine drug screen is positive for opiates. EKG is normal sinus rhythm, no ST-T changes representing acute ischemia. Chest x-ray done in the Emergency Room, which is no acute cardiopulmonary disease noted. CLINICAL IMPRESSION: 1. Diabetes mellitus. 2. Hypertension. 3. Hyperlipidemia. 4. Chronic pain syndrome. 5. Status post exploratory laparotomy for perforated bowel. 6. History of right total knee replacement. 7. Degenerative joint disease. 8. Psychotic disorder. 9. Seizure disorder. 10. Questionable dementia. 11. Fall risk. 12. Smoking, nicotine dependency. 13. Benign prostatic hypertrophy. PLAN: 1. Psychiatric evaluation and management deferred to psychiatrist. 2. Resume metformin and glipizide. 3. Glucoscan a.c. and at bedtime 4. Sliding scale insulin. 5. Statin as the patient is taking. 6. Seizure medication. 7. Seizure precautions. 8. P.r.n. inhalation therapy. 9. Continue nicotine patch. 10. Symptoms management. 11. Medication management. 12. Watch for bladder outlet obstruction. 13. Continue Flomax. 14. Fall precautions. 15. Care plan reviewed and discussed with staff. JOB# [id number]
--- NOTE | 2017-12-18 13:44 | Psychiatric Evaluation ---
DATE OF SERVICE: 12/17/2017 IDENTIFYING INFORMATION: The patient is a 57-year-old male. CHIEF COMPLAINT: "I had a bad interaction with staff, it was a misunderstanding." HISTORY OF PRESENT ILLNESS: The patient was sent from [place] with a history of schizoaffective disorder, bipolar disorder, has been reported to be agitated. The patient when I talked to him, he was vague. He was trying to minimize the information that to his admission and he wanted to leave. I explained to him that if he plans to go to the same facility that probably, they are not going to take him right away, they want to see that there has been some progress and he agreed to stay. He reports that in general, he sleeps well, eats well. He still is not a very good historian. PAST PSYCHIATRIC HISTORY: The patient is with a history of bipolar disorder and also possible dementia; however, the patient denies prior suicide attempts, denies prior hospitalization; however, he is not a reliable historian. MEDICAL HISTORY: Deferred to the medical doctor. ALLERGIES: THE PATIENT IS ALLERGIC TO BENZTROPINE, so obviously it seemed like he does have a history and he is on Zyprexa. MEDICATIONS: The patient is on Depakote 500 mg in the morning, Neurontin 400 mg 3 times a day and he is diabetic. He is on Namenda 5 mg daily. The patient is on olanzapine, Zyprexa 10 mg at bedtime and Inderal 5 mg twice a day. FAMILY AND SOCIAL HISTORY: The patient reports that he is , was living with his father, but going to the nursing facility. 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 He has 1 son and grandchildren. He reports high school education. He denies family psychiatric disorder. The patient is a poor historian. MENTAL STATUS EXAMINATION: The patient is appropriately dressed, not well groomed. His mood is depressed. Affect is constricted. Thoughts are concrete. Speech is clear. He was alert and oriented to place. He is not sure to tell me what led to his admission. He was minimizing the events that led to the admission. He reports no auditory or visual hallucination or paranoia. He reported that he sleeps well, eats well. However, seemed like he was trying to make a good case for him to be leaving. He is long-term is as per his age, but recent memory is poor. He is unable to tell me details of what led to him coming here. He is not sure of the exact date. He believes this is 12/20/2017. He is not sure of the exact date. He denies substance abuse. His insight and judgment is impaired. His short term memory is poor. Long-term memory was good, age and date of . IMPRESSION: AXIS I: Psychosis, not otherwise specified. Dementia, rule out schizoaffective disorder versus bipolar disorder. His assets, he accepted treatment. Negative ____. INITIAL TREATMENT PLAN: The patient will be continued on medication. We will adjust the medication as needed. We will do group therapy, milieu therapy, and individual therapy. ESTIMATED LENGTH OF STAY: 3-7 days. DISCHARGE CRITERIA: Decreasing agitation, feeling better after discharge, outpatient treatment. JOB# [id number]
[2017-12-19] MEDS: Multivitamin Tab PO SCH (08:47)
[2017-12-19] MEDS: Aspirin 81mg Chewable Tab PO SCH (08:48)
[2017-12-19] MEDS: Nicotine 14 mg/24 hr Tdm TD SCH (08:48)
[2017-12-19] MEDS: Albuterol Nebulizer 2.5mg/3mL HHN PRN ×2 (09:07→19:27)
--- NOTE | 2017-12-19 18:28 | Progress Notes ---
DATE: IDENTIFICATION: This is a 57-year-old male. SUBJECTIVE: The patient seen and examined. The patient is lying in the bed. The patient is asking for more pain medication. The patient denies any chest pain, shortness of breath, palpitation, or dizziness. PHYSICAL EXAMINATION: VITAL SIGNS: Temperature 97.6, pulse 94, respiratory rate 18, and blood pressure 136/78. HEENT: No facial asymmetry, craniotomy scar noted. NECK: Supple, no JVD. HEART: Regular. CHEST AND LUNGS: Equal in expansion. No expiratory wheezing. ABDOMEN: Soft, no guarding or rigidity. Bowel sounds present. No palpable mass. EXTREMITIES: No edema or cyanosis. Right total knee replacement. Surgical scar noted. NEUROLOGIC: Alert, awake, follows commands. No gross neuro deficit noted. Labile mood also noted. CLINICAL IMPRESSION: 1. Diabetes mellitus. 2. Chronic pain syndrome. 3. Status post right total knee replacement. 4. Seizure disorder. 5. Hypertension. 6. Depression. 7. Degenerative joint disease. 8. Decline in self-care and mobility. PLAN: Resume the patient's [place] for the pain. The patient will continue to receive metformin and glipizide. Psychotic evaluation and management deferred to psychiatrist. Diabetes management with sliding scale insulin and using regular insulin along with home medicine. Continue to provide seizure medication, seizure precautions along with General nursing care. We will continue to follow this patient during the stay in the hospital. JOB# [id number]
[2017-12-19] MEDS: Hydrocodone/APAP 5mg/325mg Tab PO PRN (19:49)
--- NOTE | 2017-12-19 20:46 | Progress Notes ---
DATE: 12/19/2017 Case was discussed with staff of the patient, reviewed records. The patient continues to be prepared with discharge. Continues to have poor insight, unpredictable and impulsive, needing redirection. He reports that he is used to taking a higher dose of Zyprexa, so I will be increasing his Zyprexa dose to 15 mg at bedtime and so far no side effects with the medication, no sedation, no nausea and no extrapyramidal symptoms. He said he is also on small dose of Depakote; however, I think 500 mg is adequate for him and does not need to be ____ because of his agitated and aggressive behavior and we will continue outpatient group therapy, milieu therapy, adjust the medication as needed. JOB# [id number]
[2017-12-20] MEDS: Aspirin 81mg Chewable Tab PO SCH (08:54)
[2017-12-20] MEDS: Hydrocodone/APAP 5mg/325mg Tab PO PRN ×3 (08:55→21:08)
[2017-12-20] MEDS: Multivitamin Tab PO SCH (08:55)
[2017-12-20] MEDS: Nicotine 14 mg/24 hr Tdm TD SCH (09:41)
[2017-12-20] MEDS: Albuterol Nebulizer 2.5mg/3mL HHN PRN ×2 (10:56→19:09)
--- NOTE | 2017-12-20 12:15 | Progress Notes ---
DATE: 12/20/2017 PATIENT'S IDENTIFICATION: A 57-year-old male. SUBJECTIVE: The patient seen and examined. The patient complained of pain, though the patient is currently on [place]. The patient has no evidence of any worsening hypoglycemia. The patient denies any chest pain, shortness of breath, palpitation, dizziness, nausea, vomiting. OBJECTIVE: On exam, VITAL SIGNS: See nurse's note. HEENT: No facial asymmetry. NECK: Supple. No JVD. HEART: Regular. CHEST AND LUNG: Equal in expansion. No expiratory wheezing. ABDOMEN: Soft. No guarding, no rigidity. Bowel sounds present. No palpable mass. EXTREMITIES: No edema. CLINICAL IMPRESSION: 1. Diabetes. 2. Status post right total knee replacement with pain. 3. Seizure disorder. 4. Hypertension. 5. Depression. 6. Degenerative joint disease. PLAN: 1. Pain management. 2. Monitor blood sugar. 3. Seizure medication. 4. Seizure precaution. 5. Antihypertensive medicine. 6. Psych medication. 7. Psych followup. 8. Care plan reviewed and discussed with staff. JOB# [id number]
[2017-12-21] MEDS: Albuterol Nebulizer 2.5mg/3mL HHN PRN ×4 (07:24→18:53)
[2017-12-21] MEDS: Multivitamin Tab PO SCH (09:30)
[2017-12-21] MEDS: Nicotine 14 mg/24 hr Tdm TD SCH (09:30)
[2017-12-21] MEDS: Aspirin 81mg Chewable Tab PO SCH (09:30)
[2017-12-21] MEDS: Hydrocodone/APAP 5mg/325mg Tab PO PRN ×2 (09:42→19:54)
--- NOTE | 2017-12-21 23:36 | Progress Notes ---
DATE: IDENTIFICATION: A 57-year-old male. SUBJECTIVE: The patient seen and examined. The patient is lying in the bed. No new event. No new complaint. PHYSICAL EXAMINATION: VITAL SIGNS: On exam, temperature 97.6, pulse 90, respiratory rate is 18, blood pressure 116/76. HEENT: No facial asymmetry. NECK: Supple, no JVD. HEART: Regular. CHEST AND LUNGS: Equal in expansion. No expiratory wheezing. ABDOMEN: Soft, no guarding, no rigidity. The bowel sounds are present. No palpable mass. EXTREMITIES: No edema. CLINICAL IMPRESSION: 1. Diabetes. 2. Hyperlipidemia. 3. Hypertension. 4. Chronic obstructive pulmonary disease. 5. Chronic pain. 6. Degenerative joint disease. 7. Psychotic disorder. PLAN: 1. Continue to monitor blood and blood pressure. 2. Lipitor. 3. Gabapentin. 4. Depakote. 5. Symptoms management. 6. P.r.n. inhalation therapy. 7. General nursing care. 8. Psych followup. 9. Psych medication. 10. We will continue to follow this patient during the stay in the hospital. JOB# [id number]
--- NOTE | 2017-12-22 04:00 | Progress Notes ---
DATE: 12/21/2017 SUBJECTIVE: Chart reviewed and the patient interviewed. Also discussed the patient's condition with the staff and reviewed the records and labs. The patient is still anxious and he is still in irritable mood. The patient also is intrusive. The patient also is still irritable and agitated. The patient also is still intrusive to others and inpatient. The patient also is still angry, but at the same time, he is compliant with taking his medications with no side effects of medications. ASSESSMENT: The patient is still irritable and is still agitated. TREATMENT PLAN: Continue to monitor his behavior and his condition closely. Also, we will increase Zyprexa to 5 mg in the morning and 50 mg at bedtime and we will continue to follow up. [facility]# [id number]
[2017-12-22] MEDS: Albuterol Nebulizer 2.5mg/3mL HHN PRN ×3 (07:53→19:13)
[2017-12-22] MEDS: Multivitamin Tab PO SCH (08:45)
[2017-12-22] MEDS: Aspirin 81mg Chewable Tab PO SCH (08:45)
[2017-12-22] MEDS: Hydrocodone/APAP 5mg/325mg Tab PO PRN (09:20)
[2017-12-22] MEDS: Nicotine 14 mg/24 hr Tdm TD SCH (09:21)
--- NOTE | 2017-12-24 18:25 | Progress Notes ---
DATE: 12/22/2017 SUBJECTIVE: Chart reviewed and the patient interviewed. Also discussed the patient's condition with the staff and reviewed records and labs. The patient is still confused and is still in irritable mood. The patient also is forgetful. The patient also is focused on his medications. The patient also still needs redirections. Otherwise, the patient is compliant with taking medications with no side effect of medications. ASSESSMENT: The patient is still confused. TREATMENT PLAN: Continue monitoring behavior and condition closely. Also, we will continue adjusting psychotropic medications and follow up closely. JOB# [id number]
== END 2017-12-22 20:30 | DRG 885 ==
LOC: ER 12:07 → GERO2 15:07
PROVIDERS: ADMIT Psychiatry & Neurology Psychiatry; ATTEND Psychiatry & Neurology Psychiatry
DX: F25.9 Schizoaffective disorder, unspecified (principal); F03.90 Unspecified dementia, unspecified severity, without behavioral disturbance, psychotic disturbance, mood disturbance, and anxiety; E11.9 Type 2 diabetes mellitus without complications; J44.9 Chronic obstructive pulmonary disease, unspecified; I10 Essential (primary) hypertension; N40.0 Benign prostatic hyperplasia without lower urinary tract symptoms; G40.909 Epilepsy, unspecified, not intractable, without status epilepticus; M19.90 Unspecified osteoarthritis, unspecified site; G89.4 Chronic pain syndrome; E78.5 Hyperlipidemia, unspecified; F29 Unspecified psychosis not due to a substance or known physiological condition; F17.210 Nicotine dependence, cigarettes, uncomplicated; Z96.651 Presence of right artificial knee joint; Z91.81 History of falling
CPT/HCPCS: 36415-UA; 71045-TC; 80053-TC; 80307; 81001-TC; 85025-TC; 93005; 94640; 94760; J7051; J7613; Z7610

== ENCOUNTER 2018-04-16 20:07 | Inpatient (IN) | payer MEDICARE, OTHER ==
[2018-04-16 21:08] VITALS: BP 132/84
[2018-04-17 08:04] LABS: CHOLESTEROL 101 mg/dL (<200); HDL -HIGH DENSITY LIPOPROTEIN 28 mg/dL (23-92); TRIGLYCERIDES 121 mg/dL (<150)
--- NOTE | 2018-04-17 08:45 | History and Physical ---
History of Present Illness - HPI Chief Complaint: 5150 due to hearing voices HPI: Patient was put in 5150 by police due that he was stating that he was hearing voices that tell him to jump into traffic. Vital Signs: Last Vital Signs Temp 98 F 04/17/18 06:22 Pulse 73 04/17/18 08:25 Resp 16 04/17/18 07:04 BP 153/84 04/17/18 08:25 Pulse Ox 90 04/17/18 07:04 Past Medical History Cardiovascular: Report: CAD, HTN Pulmonary: Report: COPD RN BARIATRIC: Report: No Pertinent Hx GI: Report: No Pertinent Hx Psych: Report: Bipolar, Schizophrenia Musculoskeletal: Report: No Pertinent Hx Rheumatologic: Report: No pertinent Hx Infectious Disease: Report: No Pertinent Hx Renal/: Report: No Pertinent Hx Endocrine: Report: Diabetes Dermatology: Report: No Pertinent Hx - Past Surgical History Past Surgical History: No pertinent Hx Family Medical History - Family Member Mother History Unknown: Yes Ethnicity: Unknown Living Status: Unknown Social History Smoke: No Alcohol: None Drugs: None Lives: Alone Domestic Violence: Negative - Medications Home Medications: Home Medication Medication Instructions Recorded Type Albuterol Nebulizer 2.5mg/3mL 2.5 mg IH Q4HR PRN 12/17/17 History [Albuterol Neb UD*] Aspirin 1 tab PO DAILY 12/17/17 History Gabapentin 400 mg PO TID 12/17/17 History Memantine [Namenda] 5 mg PO DAILY 12/17/17 History Nicotine 14 mg/24 hr [Nicotine 14 mg TD DAILY 12/17/17 History Transdermal System] Tamsulosin HCl [Flomax] 0.4 mg PO DAILY 12/17/17 History Acetaminophen [Tylenol] 650 mg PO Q4HR PRN tab 12/22/17 Rx Al Hyd/Mg Hyd/Simethicone [Maalox] 30 ml PO Q4HR PRN udc 12/22/17 Rx Glipizide [Glucotrol] 10 mg PO BID tab 12/22/17 Rx Hydrocodone/APAP 5mg/325mg [[place] 1 tab PO Q6H PRN tab 12/22/17 Rx 5mg/325mg] Lorazepam [Ativan] 0.5 mg PO Q4HR PRN tab 12/22/17 Rx Magnesium Hydroxide [Milk of 30 ml PO HS PRN udc 12/22/17 Rx Magnesia] OLANZapine [ZyPREXA] 5 mg PO DAILY tab 12/22/17 Rx Propranolol HCl [Inderal*] 5 mg PO BID tab 12/22/17 Rx Zolpidem Tartrate [Ambien] 5 mg PO HS PRN tab 12/22/17 Rx metFORMIN [Glucophage] 1,000 mg PO BID tab 12/22/17 Rx Atorvastatin Calcium [Lipitor] 40 mg PO HS 04/16/[address] [Depakote DR] 750 mg PO BID 04/16/18 History OLANZapine [ZyPREXA] 15 mg PO HS MDD 15mg 04/16/18 History - Allergies Allergies/Adverse Reactions: Allergies Allergy/AdvReac Type Severity Reaction Status Date / Time benztropine Allergy Verified 08/01/17 17:39 Review of Systems - Review of Systems Constitutional: Report: No Significant Eyes: Report: No Significant ENT: Report: No Significant Respiratory: Report: No Significant Cardiovascular: Report: No Significant Gastrointestinal: Report: No Significant Genitourinary: Report: No Significant Musculoskeletal: Report: No Significant Skin: Report: No Significant Neurological: Report: No Significant Physical Exam - Physical Exam HEENT: Report: Ears Nose Throat within normal limits Neck: Report: Within normal limits Cardiovascular Systems: Report: Regular, Rate and Rhythm Respiratory: Report: Breath Sounds are within normal limits Abdomen: Report: Non-tender to palpation Back: Report: Inspection of back is within normal limits. Extremities: Report: Non-tender to palpation. Skin: Report: Color of skin is within normal limits Neuro/Psych: Report: Disoriented to name time or place - Lab Results All Lab Results last 24 hours: Laboratory Results - last 24 hr 04/17/18 07:00 Triglycerides 121 Cholesterol 101 LDL Cholesterol Direct 59 L HDL Cholesterol 28 - Assessment Assessment: Patient is awake, alert, calm, in no acute distress, confused. Dx: 5150, schizophrenia, bipolar, DM, HTN, Hx of seizure. - Plan Plan: Patient is follow by Psychiatry, will continue with home meds. Labs are requested.
[2018-04-17] MEDS ORDERED: Maalox 30 mL Cup PO PRN (08:48)
[2018-04-17] MEDS: Aspirin 81mg Chewable Tab PO SCH (09:18)
[2018-04-17] MEDS: Nicotine 14 mg/24 hr Tdm TD SCH (13:06)
--- NOTE | 2018-04-18 05:02 | Psychiatric Evaluation ---
DATE OF SERVICE: PSYCHIATRIC INITIAL EVALUATION AND MENTAL STATUS EXAM PATIENT'S AGE: 57-year-old. SEX: Male. PHYSICIAN: Dr. Jensen. CHIEF COMPLAINT: 5150 hold for danger to self. HISTORY OF PRESENT ILLNESS: The patient was placed on 5150 hold by [place] [employer] officers and went to [facility] where he was evaluated and sent to [facility]. The patient is living in [facility] and he has history of bipolar disorder and the patient was hospitalized in [facility] several months ago. The patient told the police that he wants to jump into traffic and to kill himself in order to get rid of the voices. The patient said that he has been hearing voices and the voices have been bothering him. He also has not been able to get rid of the voices in spite of the medications that he is taking. The patient was paranoid and angry during my interview and he blamed the problem in the roommate and blames that roommate is "they are doing drugs." He also has been suspicious and paranoid about the residents in the place where he lives. He was easily agitated and easily irritable and demanding. PAST PSYCHIATRIC HISTORY: The patient was hospitalized recently for treatment of his schizoaffective disorder under my care. MEDICATIONS: The patient is taking Depakote, Klonopin and trazodone. PAST MEDICAL HISTORY: The patient has seizure disorder. SOCIAL HISTORY: The patient is . He is living in [facility]. The patient smokes 4 cigarettes per day. He has one son who is adult. He denies any alcohol or any street drug use. 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 ALLERGIES: No known allergies. MENTAL STATUS EXAMINATION: The patient appears slightly older than his stated age. Disheveled. Anxious mood and angry. In irritable mood. Thought processes are circumstantial and tangential with occasional flight of ideas. The patient denies any visual hallucinations, but admits to auditory hallucinations that he cannot elaborate on what they are saying. The patient denies any suicidal or homicidal ideation. The patient is alert and oriented to time, place, person, and situation. Intact immediate, recent and remote memories. Poor insight and judgment. Seems to be of average intelligence based on his verbal ability. ASSESSMENT: PRIMARY DIAGNOSIS: Schizoaffective disorder, bipolar type, severe, with psychotic features. TREATMENT PLAN: We will monitor the patient's behavior and condition closely. We will continue Zyprexa, Paxil, Depakote and gabapentin and we will adjust the dose. ESTIMATED LENGTH OF STAY: 5-7 days. THE PATIENT'S STRENGTHS AND WEAKNESSES: The patient's strength is not clear at this time. He seems to be in fairly good health. Weakness is his ineffective coping and his psychosis. AFTER DISCHARGE PLAN: The patient will return to [facility] with plans for outpatient treatment and follow up as an outpatient. Also, the patient is a candidate for partial program after his discharge. JOB# [id number]
[2018-04-18 07:22] LABS: % BASOPHILS 0.4 % (0.0-2.0); % EOSINOPHILS 4.7 % (0.0-5.0); % LYMPHOCYTES 40.1 % (20.0-50.0); % MONOCYTES 9.7 % (2.0-10.0); % NEUTROPHILS 45.1 % (40.0-80.0); EOSINOPHILE ABSOLUTE 0.3 Th/cmm (0.1-0.4); HEMATOCRIT 42.2 % (41.0-60); HEMOGLOBIN 14.2 gm/dL (12-16); LYMPHOCYTE ABSOLUTE 2.8 Th/cmm (1.5-3.0); MEAN CELL VOLUME 93.4 fl (80-99); MEAN CORPUSCULAR HEMOGLOBIN 31.4 pg (26.0-30.0); MEAN CORPUSCULAR HGB CONC 33.7 pg (28.0-36.0); MEAN PLATELET VOLUME 7.5 fl; MONOCYTE ABSOLUTE 0.7 Th/cmm (0.3-1.0); NEUTROPHILE ABSOLUTE 3.1 Th/cmm (1.8-8.0); PLATELET COUNT 245 Th/cmm (150-400); RED BLOOD COUNT 4.52 Mil/cmm (4.30-5.70); RED CELL DISTRIBUTION WIDTH 13.3 % (11.5-20.0); WHITE BLOOD COUNT 6.9 Th/cmm (4.8-10.8)
[2018-04-18 07:49] LABS: ALB/GLOB RATIO 1.1 (1.0-1.8); ALBUMIN 3.2 gm/dL (4.2-5.5); ALKALINE PHOSPHATASE 37 U/L (34-104); ANION GAP 9.3 (7.0-16.0); BILIRUBIN,TOTAL 0.3 mg/dL (0.3-1.0); BUN - UREA NITROGEN 17 mg/dL (7-25); CALCIUM SERUM 9.1 mg/dL (8.6-10.3); CARBON DIOXIDE 29.8 mEq/L (21.0-31.0); CHLORIDE 106 mEq/L (98-107); CREATININE - SERUM 0.7 mg/dL (0.7-1.3); GFR AFRICAN-AMERICAN > 60.0 ml/min (>90); GFR NON AFRICAN-AMERICAN > 60.0 ml/min; GLUCOSE 123 mg/dL (70-105); POTASSIUM SERUM 4.1 mEq/L (3.5-5.1); SGOT 27 U/L (13-39); SGPT/ALT 25 U/L (7-52); SODIUM SERUM 141 mEq/L (136-145); TOTAL PROTEIN,SERUM 6.2 gm/dL (6.0-8.3)
--- NOTE | 2018-04-18 09:00 | General Progress Note ---
Subjective - Review of Systems Service Date: 04/18/18 Subjective: Patient is confused, requesting ativan. Objective - Results Result Diagrams: 04/18/18 06:50 04/18/18 06:50 Recent Labs: Laboratory Last Values WBC 6.9 Th/cmm (4.8-10.8) 04/18/18 06:50 RBC 4.52 Mil/cmm (4.30-5.70) 04/18/18 06:50 Hgb 14.2 gm/dL (12-16) 04/18/18 06:50 Hct 42.2 % (41.0-60) 04/18/18 06:50 MCV 93.4 fl (80-99) 04/18/18 06:50 MCH 31.4 pg (26.0-30.0) H 04/18/18 06:50 MCHC Differential 33.7 pg (28.0-36.0) 04/18/18 06:50 RDW 13.3 % (11.5-20.0) 04/18/18 06:50 Plt Count 245 Th/cmm (150-400) 04/18/18 06:50 MPV 7.5 fl 04/18/18 06:50 Neutrophils % 45.1 % (40.0-80.0) 04/18/18 06:50 Lymphocytes % 40.1 % (20.0-50.0) 04/18/18 06:50 Monocytes % 9.7 % (2.0-10.0) 04/18/18 06:50 Eosinophils % 4.7 % (0.0-5.0) 04/18/18 06:50 Basophils % 0.4 % (0.0-2.0) 04/18/18 06:50 Sodium 141 mEq/L (136-145) 04/18/18 06:50 Potassium 4.1 mEq/L (3.5-5.1) 04/18/18 06:50 Chloride 106 mEq/L (98-107) 04/18/18 06:50 Carbon Dioxide 29.8 mEq/L (21.0-31.0) 04/18/18 06:50 Anion Gap 9.3 (7.0-16.0) 04/18/18 06:50 BUN 17 mg/dL (7-25) 04/18/18 06:50 Creatinine 0.7 mg/dL (0.7-1.3) 04/18/18 06:50 Est GFR ( Amer) > 60.0 ml/min (>90) 04/18/18 06:50 Est GFR (Non-Af Amer) > 60.0 ml/min 04/18/18 06:50 BUN/Creatinine Ratio 24.3 04/18/18 06:50 Glucose 123 mg/dL (70-105) H 04/18/18 06:50 Calcium 9.1 mg/dL (8.6-10.3) 04/18/18 06:50 Total Bilirubin 0.3 mg/dL (0.3-1.0) 04/18/18 06:50 AST 27 U/L (13-39) 04/18/18 06:50 ALT 25 U/L (7-52) 04/18/18 06:50 Alkaline Phosphatase 37 U/L (34-104) 04/18/18 06:50 Total Protein 6.2 gm/dL (6.0-8.3) 04/18/18 06:50 Albumin 3.2 gm/dL (4.2-5.5) L 04/18/18 06:50 Globulin 3.0 gm/dL 04/18/18 06:50 Albumin/Globulin Ratio 1.1 (1.0-1.8) 04/18/18 06:50 Triglycerides 121 mg/dL (<150) 04/17/18 07:00 Cholesterol 101 mg/dL (<200) 04/17/18 07:00 LDL Cholesterol Direct 59 mg/dL (75-193) L 04/17/18 07:00 HDL Cholesterol 28 mg/dL (23-92) 04/17/18 07:00 TSH 1.53 uIU/ml (0.34-5.60) 04/18/18 06:50 - Physical Exam Vitals and I&O: Vital Signs Temp 98.0 F 04/18/18 06:01 Pulse 69 04/18/18 06:01 Resp 20 04/18/18 06:01 BP 127/75 04/18/18 06:01 Pulse Ox 92 04/18/18 06:01 Intake & Output 04/17/18 04/18/18 04/18/18 18:59 06:59 18:59 Intake Total 1200 300 Balance 1200 300 Intake: Oral 1200 300 Other: # Voids 4 2 # Bowel Movements 1 0 Active Medications: Current Medications Acetaminophen (Tylenol) 650 mg PO Q4HR PRN PRN Reason: Mild Pain 1-3/ Temp above 100 Stop: 06/15/18 23:04 Last Admin: 04/17/18 13:08 Dose: 650 mg Al Hydrox/Mg Hydrox/Simethicone (Maalox) 30 ml PO Q4HR PRN PRN Reason: GI DISTRESS Stop: 06/16/18 08:47 Albuterol Sulfate (Albuterol 2.5mg/3ml Neb Ud) 2.5 mg HHN Q4HR PRN PRN Reason: Shortness of Breath Stop: 06/15/18 23:04 Amlodipine Besylate (Norvasc) 5 mg PO DAILY [facility] Stop: 06/16/18 08:59 Last Admin: 04/17/18 08:25 Dose: 5 mg Aspirin (Aspirin Chewable) 81 mg PO DAILY [facility] Stop: 06/16/18 08:59 Last Admin: 04/17/18 09:18 Dose: 81 mg Atorvastatin Calcium (Lipitor) 40 mg PO HS [facility]; Protocol Stop: 06/16/18 20:59 Last Admin: 04/17/18 20:03 Dose: 40 mg Divalproex Sodium (Depakote Dr) 750 mg PO BID [facility]; Protocol Stop: 06/16/18 08:59 Last Admin: 04/17/18 17:16 Dose: 750 mg Gabapentin (Neurontin) 400 mg PO TID [facility] Stop: 06/16/18 08:59 Last Admin: 04/17/18 20:04 Dose: 400 mg Glipizide (Glucotrol) 10 mg PO BID [facility] Stop: 06/16/18 08:59 Last Admin: 04/17/18 17:17 Dose: 10 mg Magnesium Hydroxide (Milk Of Magnesia) 30 ml PO HS PRN PRN Reason: Constipation Stop: 06/15/18 23:04 Metformin HCl (Glucophage) 1,000 mg PO BID [facility] Stop: 06/16/18 08:59 Last Admin: 04/17/18 17:17 Dose: 1,000 mg Miscellaneous (Clinical Monitoring) 1 ea MC DAILY PRN PRN Reason: RENAL MONITOR- METFORMIN Stop: 06/16/18 08:37 Nicotine (Nicotine Transdermal System) 14 mg TD DAILY [facility] Stop: 06/16/18 08:59 Last Admin: 04/17/18 13:06 Dose: 14 mg Olanzapine (Zyprexa) 5 mg PO DAILY [facility]; Protocol Stop: 06/16/18 08:59 Last Admin: 04/17/18 08:25 Dose: 5 mg Olanzapine (Zyprexa) 15 mg PO HS [facility]; Protocol Stop: 06/16/18 20:59 Last Admin: 04/17/18 20:04 Dose: 15 mg Paroxetine HCl (Paxil) 20 mg PO DAILY [facility]; Protocol Stop: 06/16/18 08:59 Last Admin: 04/17/18 08:26 Dose: 20 mg Propranolol HCl (Inderal) 5 mg PO BID [facility] Stop: 06/16/18 08:59 Last Admin: 04/17/18 17:17 Dose: 5 mg Tamsulosin HCl (Flomax) 0.4 mg PO DAILY [facility] Stop: 06/16/18 08:59 Last Admin: 04/17/18 08:25 Dose: 0.4 mg Temazepam (Restoril) 15 mg PO HS PRN; Protocol PRN Reason: Insomnia Stop: 06/15/18 23:16 Last Admin: 04/17/18 20:03 Dose: 15 mg Trazodone HCl (Desyrel) 150 mg PO HS [facility]; Protocol Stop: 06/16/18 20:59 Last Admin: 04/17/18 20:35 Dose: 150 mg Zolpidem Tartrate (Ambien) 5 mg PO HS PRN PRN Reason: Insomnia Stop: 06/16/18 08:47 General: Alert, No acute distress, Other (Confused) HEENT: Atraumatic Neck: Supple Cardiovascular: Regular rate Lungs: Clear to auscultation Abdomen: Bowel sounds, Soft Extremities: Other (edema) Neurological: Other (Unstable gait) Skin: Other (Warm and dry) Psych/Mental Status: Other (Confused, not oriented) Assessment/Plan - Assessment Assessment: Patient is awake, alert, calm, in no acute distress, confused. Dx: 5150, schizophrenia, bipolar, DM, HTN, Hx of seizure. - Plan Plan: Patient is follow by Psychiatry, will continue with home meds. Labs are requested.
[2018-04-18] MEDS: Nicotine 14 mg/24 hr Tdm TD SCH (09:32)
[2018-04-18] MEDS: Aspirin 81mg Chewable Tab PO SCH (09:35)
--- NOTE | 2018-04-18 21:10 | Progress Notes ---
DATE: 04/18/2018 SUBJECTIVE: Chart reviewed and the patient interviewed. Also, discussed the patient's condition with the staff and reviewed records and labs. The patient is increasingly anxious and is still in irritable mood. The patient also is still hypertalkative and is still intrusive to others. The patient also is still having mood swings. Also, personal hygiene is still poor. Otherwise, the patient is compliant with taking his medications with no side effect of medications. The patient continuously asking to go to a care home and complaining of weakness and back pain. At the same time, we will continue monitoring his behavior and will continue adjusting psychotropic medications and followup. JOB# [id number]
[2018-04-19] MEDS: Aspirin 81mg Chewable Tab PO SCH (08:57)
[2018-04-19] MEDS: Nicotine 14 mg/24 hr Tdm TD SCH (09:00)
--- NOTE | 2018-04-19 17:02 | General Progress Note ---
Subjective - Review of Systems Service Date: 04/19/18 Subjective: Patient is confused, not oriented Objective - Results Result Diagrams: 04/18/18 06:50 04/18/18 06:50 Recent Labs: Laboratory Last Values WBC 6.9 Th/cmm (4.8-10.8) 04/18/18 06:50 RBC 4.52 Mil/cmm (4.30-5.70) 04/18/18 06:50 Hgb 14.2 gm/dL (12-16) 04/18/18 06:50 Hct 42.2 % (41.0-60) 04/18/18 06:50 MCV 93.4 fl (80-99) 04/18/18 06:50 MCH 31.4 pg (26.0-30.0) H 04/18/18 06:50 MCHC Differential 33.7 pg (28.0-36.0) 04/18/18 06:50 RDW 13.3 % (11.5-20.0) 04/18/18 06:50 Plt Count 245 Th/cmm (150-400) 04/18/18 06:50 MPV 7.5 fl 04/18/18 06:50 Neutrophils % 45.1 % (40.0-80.0) 04/18/18 06:50 Lymphocytes % 40.1 % (20.0-50.0) 04/18/18 06:50 Monocytes % 9.7 % (2.0-10.0) 04/18/18 06:50 Eosinophils % 4.7 % (0.0-5.0) 04/18/18 06:50 Basophils % 0.4 % (0.0-2.0) 04/18/18 06:50 Sodium 141 mEq/L (136-145) 04/18/18 06:50 Potassium 4.1 mEq/L (3.5-5.1) 04/18/18 06:50 Chloride 106 mEq/L (98-107) 04/18/18 06:50 Carbon Dioxide 29.8 mEq/L (21.0-31.0) 04/18/18 06:50 Anion Gap 9.3 (7.0-16.0) 04/18/18 06:50 BUN 17 mg/dL (7-25) 04/18/18 06:50 Creatinine 0.7 mg/dL (0.7-1.3) 04/18/18 06:50 Est GFR ( Amer) > 60.0 ml/min (>90) 04/18/18 06:50 Est GFR (Non-Af Amer) > 60.0 ml/min 04/18/18 06:50 BUN/Creatinine Ratio 24.3 04/18/18 06:50 Glucose 123 mg/dL (70-105) H 04/18/18 06:50 Calcium 9.1 mg/dL (8.6-10.3) 04/18/18 06:50 Total Bilirubin 0.3 mg/dL (0.3-1.0) 04/18/18 06:50 AST 27 U/L (13-39) 04/18/18 06:50 ALT 25 U/L (7-52) 04/18/18 06:50 Alkaline Phosphatase 37 U/L (34-104) 04/18/18 06:50 Total Protein 6.2 gm/dL (6.0-8.3) 04/18/18 06:50 Albumin 3.2 gm/dL (4.2-5.5) L 04/18/18 06:50 Globulin 3.0 gm/dL 04/18/18 06:50 Albumin/Globulin Ratio 1.1 (1.0-1.8) 04/18/18 06:50 Triglycerides 121 mg/dL (<150) 04/17/18 07:00 Cholesterol 101 mg/dL (<200) 04/17/18 07:00 LDL Cholesterol Direct 59 mg/dL (75-193) L 04/17/18 07:00 HDL Cholesterol 28 mg/dL (23-92) 04/17/18 07:00 TSH 1.53 uIU/ml (0.34-5.60) 04/18/18 06:50 - Physical Exam Vitals and I&O: Vital Signs Temp 97.5 F 04/19/18 14:00 Pulse 68 04/19/18 14:00 Resp 20 04/19/18 14:00 BP 102/65 04/19/18 14:00 Pulse Ox 95 04/19/18 14:00 Intake & Output 04/18/18 04/19/18 04/19/18 18:59 06:59 18:59 Other: # Voids 3 # Bowel Movements 1 Active Medications: Current Medications Acetaminophen (Tylenol) 650 mg PO Q4HR PRN PRN Reason: Mild Pain 1-3/ Temp above 100 Stop: 06/15/18 23:04 Last Admin: 04/17/18 13:08 Dose: 650 mg Al Hydrox/Mg Hydrox/Simethicone (Maalox) 30 ml PO Q4HR PRN PRN Reason: GI DISTRESS Stop: 06/16/18 08:47 Albuterol Sulfate (Albuterol 2.5mg/3ml Neb Ud) 2.5 mg HHN Q4HR PRN PRN Reason: Shortness of Breath Stop: 06/15/18 23:04 Amlodipine Besylate (Norvasc) 5 mg PO DAILY [facility] Stop: 06/16/18 08:59 Last Admin: 04/19/18 08:57 Dose: 5 mg Aspirin (Aspirin Chewable) 81 mg PO DAILY [facility] Stop: 06/16/18 08:59 Last Admin: 04/19/18 08:57 Dose: 81 mg Atorvastatin Calcium (Lipitor) 40 mg PO HS [facility]; Protocol Stop: 06/16/18 20:59 Last Admin: 04/18/18 20:04 Dose: 40 mg Divalproex Sodium (Depakote Dr) 750 mg PO BID [facility]; Protocol Stop: 06/16/18 08:59 Last Admin: 04/19/18 08:57 Dose: 750 mg Gabapentin (Neurontin) 400 mg PO TID [facility] Stop: 06/16/18 08:59 Last Admin: 04/19/18 13:31 Dose: 400 mg Glipizide (Glucotrol) 10 mg PO BID [facility] Stop: 06/16/18 08:59 Last Admin: 04/19/18 08:57 Dose: 10 mg Magnesium Hydroxide (Milk Of Magnesia) 30 ml PO HS PRN PRN Reason: Constipation Stop: 06/15/18 23:04 Metformin HCl (Glucophage) 1,000 mg PO BID [facility] Stop: 06/16/18 08:59 Last Admin: 04/19/18 08:57 Dose: 1,000 mg Miscellaneous (Clinical Monitoring) 1 ea MC DAILY PRN PRN Reason: RENAL MONITOR- METFORMIN Stop: 06/16/18 08:37 Mupirocin (Bactroban Oint) 1 appl NS BID [facility] Stop: 04/23/18 17:01 Last Admin: 04/19/18 08:55 Dose: 1 appl Nicotine (Nicotine Transdermal System) 14 mg TD DAILY [facility] Stop: 06/16/18 08:59 Last Admin: 04/19/18 09:00 Dose: 14 mg Olanzapine (Zyprexa) 5 mg PO DAILY [facility]; Protocol Stop: 06/16/18 08:59 Last Admin: 04/19/18 08:56 Dose: 5 mg Olanzapine (Zyprexa) 15 mg PO HS [facility]; Protocol Stop: 06/16/18 20:59 Last Admin: 04/18/18 20:05 Dose: 15 mg Paroxetine HCl (Paxil) 20 mg PO DAILY [facility]; Protocol Stop: 06/16/18 08:59 Last Admin: 04/19/18 08:57 Dose: 20 mg Propranolol HCl (Inderal) 5 mg PO BID [facility] Stop: 06/16/18 08:59 Last Admin: 04/19/18 08:56 Dose: 5 mg Tamsulosin HCl (Flomax) 0.4 mg PO DAILY [facility] Stop: 06/16/18 08:59 Last Admin: 04/19/18 08:56 Dose: 0.4 mg Temazepam (Restoril) 15 mg PO HS PRN; Protocol PRN Reason: Insomnia Stop: 06/15/18 23:16 Last Admin: 04/18/18 20:12 Dose: 15 mg Trazodone HCl (Desyrel) 150 mg PO HS [facility]; Protocol Stop: 06/16/18 20:59 Last Admin: 04/18/18 20:05 Dose: 150 mg Zolpidem Tartrate (Ambien) 5 mg PO HS PRN PRN Reason: Insomnia Stop: 06/16/18 08:47 General: Alert, No acute distress, Other (Confused) HEENT: Atraumatic Neck: Supple Cardiovascular: Regular rate Lungs: Clear to auscultation Abdomen: Bowel sounds, Soft Extremities: Other (edema) Neurological: Other (Unstable gait) Skin: Other (Warm and dry) Psych/Mental Status: Other (Confused, not oriented) Assessment/Plan - Assessment Assessment: Patient is awake, alert, calm, in no acute distress, confused. Dx: 5150, schizophrenia, bipolar, DM, HTN, Hx of seizure. - Plan Plan: Patient is follow by Psychiatry, will continue with home meds.
--- NOTE | 2018-04-19 17:10 | Progress Notes ---
DATE: 04/19/2018 SUBJECTIVE: Chart reviewed and the patient interviewed. Also discussed the patient's condition with the staff and reviewed records and labs. The patient is still confused and is still in irritable and angry mood. The patient also is still having unpredictable behavior. The patient also still has mood swings and is demanding to go to a "long-term." He is complaining of generalized weakness and he is unable to care for himself. The patient also is still in angry mood. Otherwise, the patient is compliant with taking his medications with no side effects of medications. ASSESSMENT: The patient is still psychotic and is still agitated. TREATMENT PLAN: We will continue monitoring his behavior and his condition closely. Also, continue adjusting psychotropic medications and working on his poor impulse control and mood swings. [facility]# [id number]
[2018-04-19] MEDS: Albuterol Nebulizer 2.5mg/3mL HHN PRN (21:03)
[2018-04-20] MEDS: Nicotine 14 mg/24 hr Tdm TD SCH (09:27)
[2018-04-20] MEDS: Aspirin 81mg Chewable Tab PO SCH (09:29)
[2018-04-20] MEDS: Albuterol Nebulizer 2.5mg/3mL HHN PRN (19:28)
--- NOTE | 2018-04-20 20:24 | Progress Notes ---
DATE: 04/20/2018 SUBJECTIVE: Chart reviewed and the patient interviewed. Also, discussed the patient's condition with the staff and reviewed records and labs. The patient is still demanding and is still suspicious and paranoid. The patient also is still interacting more with peers and with others. The patient also still needs redirections. Otherwise, the patient is sleeping slightly better with the trazodone. ASSESSMENT: The patient is still psychotic. TREATMENT PLAN: Continue to monitor behavior and condition closely. Also, increase Zyprexa to 10 mg in the morning and 15 mg at bedtime. Also, we will work on behavior modification and followup. JOB# [id number]
[2018-04-21] MEDS: Aspirin 81mg Chewable Tab PO SCH (08:55)
[2018-04-21] MEDS: Nicotine 14 mg/24 hr Tdm TD SCH (09:05)
--- NOTE | 2018-04-21 09:48 | General Progress Note ---
Subjective - Review of Systems Service Date: 04/21/18 Subjective: Patient is confused, not oriented. Objective - Results Result Diagrams: 04/18/18 06:50 04/18/18 06:50 Recent Labs: Laboratory Last Values WBC 6.9 Th/cmm (4.8-10.8) 04/18/18 06:50 RBC 4.52 Mil/cmm (4.30-5.70) 04/18/18 06:50 Hgb 14.2 gm/dL (12-16) 04/18/18 06:50 Hct 42.2 % (41.0-60) 04/18/18 06:50 MCV 93.4 fl (80-99) 04/18/18 06:50 MCH 31.4 pg (26.0-30.0) H 04/18/18 06:50 MCHC Differential 33.7 pg (28.0-36.0) 04/18/18 06:50 RDW 13.3 % (11.5-20.0) 04/18/18 06:50 Plt Count 245 Th/cmm (150-400) 04/18/18 06:50 MPV 7.5 fl 04/18/18 06:50 Neutrophils % 45.1 % (40.0-80.0) 04/18/18 06:50 Lymphocytes % 40.1 % (20.0-50.0) 04/18/18 06:50 Monocytes % 9.7 % (2.0-10.0) 04/18/18 06:50 Eosinophils % 4.7 % (0.0-5.0) 04/18/18 06:50 Basophils % 0.4 % (0.0-2.0) 04/18/18 06:50 Sodium 141 mEq/L (136-145) 04/18/18 06:50 Potassium 4.1 mEq/L (3.5-5.1) 04/18/18 06:50 Chloride 106 mEq/L (98-107) 04/18/18 06:50 Carbon Dioxide 29.8 mEq/L (21.0-31.0) 04/18/18 06:50 Anion Gap 9.3 (7.0-16.0) 04/18/18 06:50 BUN 17 mg/dL (7-25) 04/18/18 06:50 Creatinine 0.7 mg/dL (0.7-1.3) 04/18/18 06:50 Est GFR ( Amer) > 60.0 ml/min (>90) 04/18/18 06:50 Est GFR (Non-Af Amer) > 60.0 ml/min 04/18/18 06:50 BUN/Creatinine Ratio 24.3 04/18/18 06:50 Glucose 123 mg/dL (70-105) H 04/18/18 06:50 Calcium 9.1 mg/dL (8.6-10.3) 04/18/18 06:50 Total Bilirubin 0.3 mg/dL (0.3-1.0) 04/18/18 06:50 AST 27 U/L (13-39) 04/18/18 06:50 ALT 25 U/L (7-52) 04/18/18 06:50 Alkaline Phosphatase 37 U/L (34-104) 04/18/18 06:50 Total Protein 6.2 gm/dL (6.0-8.3) 04/18/18 06:50 Albumin 3.2 gm/dL (4.2-5.5) L 04/18/18 06:50 Globulin 3.0 gm/dL 04/18/18 06:50 Albumin/Globulin Ratio 1.1 (1.0-1.8) 04/18/18 06:50 Triglycerides 121 mg/dL (<150) 04/17/18 07:00 Cholesterol 101 mg/dL (<200) 04/17/18 07:00 LDL Cholesterol Direct 59 mg/dL (75-193) L 04/17/18 07:00 HDL Cholesterol 28 mg/dL (23-92) 04/17/18 07:00 TSH 1.53 uIU/ml (0.34-5.60) 04/18/18 06:50 - Physical Exam Vitals and I&O: Vital Signs Temp 98.2 F 04/21/18 06:15 Pulse 67 04/21/18 08:54 Resp 20 04/21/18 06:15 BP 106/65 04/21/18 08:54 Pulse Ox 94 04/21/18 06:15 Intake & Output 04/20/18 04/21/18 04/21/18 18:59 06:59 18:59 Intake Total 1800 240 Balance 1800 240 Intake: Oral 1800 240 Other: # Voids 4 3 # Bowel Movements 1 0 Active Medications: Current Medications Acetaminophen (Tylenol) 650 mg PO Q4HR PRN PRN Reason: Mild Pain 1-3/ Temp above 100 Stop: 06/15/18 23:04 Last Admin: 04/17/18 13:08 Dose: 650 mg Al Hydrox/Mg Hydrox/Simethicone (Maalox) 30 ml PO Q4HR PRN PRN Reason: GI DISTRESS Stop: 06/16/18 08:47 Albuterol Sulfate (Albuterol 2.5mg/3ml Neb Ud) 2.5 mg HHN Q4HR PRN PRN Reason: Shortness of Breath Stop: 06/15/18 23:04 Last Admin: 04/20/18 19:28 Dose: 2.5 mg Amlodipine Besylate (Norvasc) 5 mg PO DAILY [facility] Stop: 06/16/18 08:59 Last Admin: 04/21/18 08:54 Dose: 5 mg Aspirin (Aspirin Chewable) 81 mg PO DAILY [facility] Stop: 06/16/18 08:59 Last Admin: 04/21/18 08:55 Dose: 81 mg Atorvastatin Calcium (Lipitor) 40 mg PO HS [facility]; Protocol Stop: 06/16/18 20:59 Last Admin: 04/20/18 20:58 Dose: 40 mg Divalproex Sodium (Depakote Dr) 1,000 mg PO BID [facility]; Protocol Stop: 06/20/18 08:59 Last Admin: 04/21/18 08:57 Dose: 1,000 mg Gabapentin (Neurontin) 400 mg PO TID [facility] Stop: 06/16/18 08:59 Last Admin: 04/21/18 08:55 Dose: 400 mg Glipizide (Glucotrol) 10 mg PO BID [facility] Stop: 06/16/18 08:59 Last Admin: 04/21/18 08:56 Dose: 10 mg Magnesium Hydroxide (Milk Of Magnesia) 30 ml PO HS PRN PRN Reason: Constipation Stop: 06/15/18 23:04 Metformin HCl (Glucophage) 1,000 mg PO BID [facility] Stop: 06/16/18 08:59 Last Admin: 04/21/18 08:56 Dose: 1,000 mg Miscellaneous (Clinical Monitoring) 1 ea MC DAILY PRN PRN Reason: RENAL MONITOR- METFORMIN Stop: 06/16/18 08:37 Mupirocin (Bactroban Oint) 1 appl NS BID [facility] Stop: 04/23/18 17:01 Last Admin: 04/21/18 08:56 Dose: 1 appl Nicotine (Nicotine Transdermal System) 14 mg TD DAILY [facility] Stop: 06/16/18 08:59 Last Admin: 04/21/18 09:05 Dose: 14 mg Olanzapine (Zyprexa) 15 mg PO HS [facility]; Protocol Stop: 06/16/18 20:59 Last Admin: 04/20/18 20:58 Dose: 15 mg Olanzapine (Zyprexa) 10 mg PO DAILY [facility]; Protocol Stop: 06/19/18 08:59 Last Admin: 04/21/18 08:57 Dose: 10 mg Paroxetine HCl (Paxil) 20 mg PO DAILY [facility]; Protocol Stop: 06/16/18 08:59 Last Admin: 04/21/18 08:55 Dose: 20 mg Propranolol HCl (Inderal) 5 mg PO BID [facility] Stop: 06/16/18 08:59 Last Admin: 04/21/18 08:54 Dose: 5 mg Tamsulosin HCl (Flomax) 0.4 mg PO DAILY [facility] Stop: 06/16/18 08:59 Last Admin: 04/21/18 08:55 Dose: 0.4 mg Temazepam (Restoril) 15 mg PO HS PRN; Protocol PRN Reason: Insomnia Stop: 06/15/18 23:16 Last Admin: 04/21/18 01:10 Dose: 15 mg Trazodone HCl (Desyrel) 150 mg PO HS [facility]; Protocol Stop: 06/16/18 20:59 Last Admin: 04/20/18 20:58 Dose: 150 mg General: Alert, No acute distress, Other (Confused) HEENT: Atraumatic Neck: Supple Cardiovascular: Regular rate Lungs: Clear to auscultation Abdomen: Bowel sounds, Soft Extremities: Other (edema) Neurological: Other (Unstable gait) Skin: Other (Warm and dry) Psych/Mental Status: Other (Confused, not oriented) Assessment/Plan - Assessment Assessment: Patient is awake, alert, calm, in no acute distress, confused. Dx: 5150, schizophrenia, bipolar, DM, HTN, Hx of seizure. - Plan Plan: Patient is follow by Psychiatry, will continue with home meds.
--- NOTE | 2018-04-21 20:11 | Progress Notes ---
DATE: 04/21/2018 SUBJECTIVE: Chart reviewed and the patient interviewed. Also, discussed the patient's condition with the staff and reviewed records and labs. The patient continued to be impulsive and is still suspicious and demanding. The patient also still needs lots of redirections. The patient also is still easily irritable and easily agitated. The patient also still has difficulty sleeping at night. Otherwise, the patient is compliant with taking his medications with no side effects. ASSESSMENT: The patient is still agitated and psychotic. TREATMENT PLAN: Continue Zyprexa 10 mg in the morning and 50 mg at bedtime. Also, continue trazodone 150 at bedtime. We will increase Depakote 2000 mg twice a day and we will continue to work on his irritability as well as on discharge plans. JOB# [id number]
[2018-04-21] MEDS: Albuterol Nebulizer 2.5mg/3mL HHN PRN (21:33)
[2018-04-22] MEDS: Aspirin 81mg Chewable Tab PO SCH (08:50)
[2018-04-22] MEDS: Nicotine 14 mg/24 hr Tdm TD SCH (08:52)
--- NOTE | 2018-04-22 10:01 | General Progress Note ---
Subjective - Review of Systems Service Date: 04/22/18 Subjective: Patient is confused, not oriented. Objective - Results Result Diagrams: 04/18/18 06:50 04/18/18 06:50 Recent Labs: Laboratory Last Values WBC 6.9 Th/cmm (4.8-10.8) 04/18/18 06:50 RBC 4.52 Mil/cmm (4.30-5.70) 04/18/18 06:50 Hgb 14.2 gm/dL (12-16) 04/18/18 06:50 Hct 42.2 % (41.0-60) 04/18/18 06:50 MCV 93.4 fl (80-99) 04/18/18 06:50 MCH 31.4 pg (26.0-30.0) H 04/18/18 06:50 MCHC Differential 33.7 pg (28.0-36.0) 04/18/18 06:50 RDW 13.3 % (11.5-20.0) 04/18/18 06:50 Plt Count 245 Th/cmm (150-400) 04/18/18 06:50 MPV 7.5 fl 04/18/18 06:50 Neutrophils % 45.1 % (40.0-80.0) 04/18/18 06:50 Lymphocytes % 40.1 % (20.0-50.0) 04/18/18 06:50 Monocytes % 9.7 % (2.0-10.0) 04/18/18 06:50 Eosinophils % 4.7 % (0.0-5.0) 04/18/18 06:50 Basophils % 0.4 % (0.0-2.0) 04/18/18 06:50 Sodium 141 mEq/L (136-145) 04/18/18 06:50 Potassium 4.1 mEq/L (3.5-5.1) 04/18/18 06:50 Chloride 106 mEq/L (98-107) 04/18/18 06:50 Carbon Dioxide 29.8 mEq/L (21.0-31.0) 04/18/18 06:50 Anion Gap 9.3 (7.0-16.0) 04/18/18 06:50 BUN 17 mg/dL (7-25) 04/18/18 06:50 Creatinine 0.7 mg/dL (0.7-1.3) 04/18/18 06:50 Est GFR ( Amer) > 60.0 ml/min (>90) 04/18/18 06:50 Est GFR (Non-Af Amer) > 60.0 ml/min 04/18/18 06:50 BUN/Creatinine Ratio 24.3 04/18/18 06:50 Glucose 123 mg/dL (70-105) H 04/18/18 06:50 Calcium 9.1 mg/dL (8.6-10.3) 04/18/18 06:50 Total Bilirubin 0.3 mg/dL (0.3-1.0) 04/18/18 06:50 AST 27 U/L (13-39) 04/18/18 06:50 ALT 25 U/L (7-52) 04/18/18 06:50 Alkaline Phosphatase 37 U/L (34-104) 04/18/18 06:50 Total Protein 6.2 gm/dL (6.0-8.3) 04/18/18 06:50 Albumin 3.2 gm/dL (4.2-5.5) L 04/18/18 06:50 Globulin 3.0 gm/dL 04/18/18 06:50 Albumin/Globulin Ratio 1.1 (1.0-1.8) 04/18/18 06:50 Triglycerides 121 mg/dL (<150) 04/17/18 07:00 Cholesterol 101 mg/dL (<200) 04/17/18 07:00 LDL Cholesterol Direct 59 mg/dL (75-193) L 04/17/18 07:00 HDL Cholesterol 28 mg/dL (23-92) 04/17/18 07:00 TSH 1.53 uIU/ml (0.34-5.60) 04/18/18 06:50 - Physical Exam Vitals and I&O: Vital Signs Temp 98 F 04/21/18 20:41 Pulse 75 04/22/18 08:50 Resp 20 04/21/18 20:41 BP 115/66 04/22/18 08:50 Pulse Ox 96 04/21/18 20:41 Intake & Output 04/21/18 04/22/18 04/22/18 18:59 06:59 18:59 Intake Total 480 Balance 480 Intake: Oral 480 Other: # Voids 2 # Bowel Movements 1 Active Medications: Current Medications Acetaminophen (Tylenol) 650 mg PO Q4HR PRN PRN Reason: Mild Pain 1-3/ Temp above 100 Stop: 06/15/18 23:04 Last Admin: 04/17/18 13:08 Dose: 650 mg Al Hydrox/Mg Hydrox/Simethicone (Maalox) 30 ml PO Q4HR PRN PRN Reason: GI DISTRESS Stop: 06/16/18 08:47 Albuterol Sulfate (Albuterol 2.5mg/3ml Neb Ud) 2.5 mg HHN Q4HR PRN PRN Reason: Shortness of Breath Stop: 06/15/18 23:04 Last Admin: 04/21/18 21:33 Dose: 2.5 mg Amlodipine Besylate (Norvasc) 5 mg PO DAILY [facility] Stop: 06/16/18 08:59 Last Admin: 04/22/18 08:50 Dose: 5 mg Aspirin (Aspirin Chewable) 81 mg PO DAILY [facility] Stop: 06/16/18 08:59 Last Admin: 04/22/18 08:50 Dose: 81 mg Atorvastatin Calcium (Lipitor) 40 mg PO HS [facility]; Protocol Stop: 06/16/18 20:59 Last Admin: 04/21/18 20:57 Dose: 40 mg Divalproex Sodium (Depakote Dr) 1,000 mg PO BID [facility]; Protocol Stop: 06/20/18 08:59 Last Admin: 04/22/18 08:52 Dose: Not Given Gabapentin (Neurontin) 400 mg PO TID [facility] Stop: 06/16/18 08:59 Last Admin: 04/22/18 08:49 Dose: 400 mg Glipizide (Glucotrol) 10 mg PO BID [facility] Stop: 06/16/18 08:59 Last Admin: 04/22/18 08:50 Dose: 10 mg Magnesium Hydroxide (Milk Of Magnesia) 30 ml PO HS PRN PRN Reason: Constipation Stop: 06/15/18 23:04 Metformin HCl (Glucophage) 1,000 mg PO BID [facility] Stop: 06/16/18 08:59 Last Admin: 04/22/18 08:50 Dose: 1,000 mg Miscellaneous (Clinical Monitoring) 1 ea MC DAILY PRN PRN Reason: RENAL MONITOR- METFORMIN Stop: 06/16/18 08:37 Mupirocin (Bactroban Oint) 1 appl NS BID [facility] Stop: 04/23/18 17:01 Last Admin: 04/22/18 08:51 Dose: 1 appl Nicotine (Nicotine Transdermal System) 14 mg TD DAILY [facility] Stop: 06/16/18 08:59 Last Admin: 04/22/18 08:52 Dose: 14 mg Olanzapine (Zyprexa) 15 mg PO HS [facility]; Protocol Stop: 06/16/18 20:59 Last Admin: 04/21/18 20:57 Dose: 15 mg Olanzapine (Zyprexa) 10 mg PO DAILY [facility]; Protocol Stop: 06/19/18 08:59 Last Admin: 04/22/18 08:51 Dose: 10 mg Paroxetine HCl (Paxil) 20 mg PO DAILY [facility]; Protocol Stop: 06/16/18 08:59 Last Admin: 04/22/18 08:51 Dose: 20 mg Propranolol HCl (Inderal) 5 mg PO BID [facility] Stop: 06/16/18 08:59 Last Admin: 04/22/18 08:47 Dose: 5 mg Tamsulosin HCl (Flomax) 0.4 mg PO DAILY [facility] Stop: 06/16/18 08:59 Last Admin: 04/22/18 08:50 Dose: 0.4 mg Temazepam (Restoril) 15 mg PO HS PRN; Protocol PRN Reason: Insomnia Stop: 06/15/18 23:16 Last Admin: 04/21/18 22:19 Dose: 15 mg Trazodone HCl (Desyrel) 150 mg PO HS [facility]; Protocol Stop: 06/16/18 20:59 Last Admin: 04/21/18 20:57 Dose: 150 mg General: Alert, No acute distress, Other (Confused) HEENT: Atraumatic Neck: Supple Cardiovascular: Regular rate Lungs: Clear to auscultation Abdomen: Bowel sounds, Soft Extremities: Other (edema) Neurological: Other (Unstable gait) Skin: Other (Warm and dry) Psych/Mental Status: Other (Confused, not oriented) Assessment/Plan - Assessment Assessment: Patient is awake, alert, calm, in no acute distress, confused. Dx: 5150, schizophrenia, bipolar, DM, HTN, Hx of seizure. - Plan Plan: Patient is follow by Psychiatry, will continue with home meds. Nutritional Asmnt/Malnutr-PDOC - Dietary Evaluation Malnutrition Findings (Please click <Entered> for more info): Nutritional Asmnt/Malnutrition Start: 04/21/18 10: 40 Text: Status: Complete Freq: Protocol: Document 04/21/18 10:40 JULIETTE (Rec: 04/21/18 10:45 JULIETTE MARY- [email or web address]) Nutritional Asmnt/Malnutrition Patient General Information Diagnosis psychosis Pertinent Medical Hx/Surgical Hx bipolar, schizophrenia, CAD, HTN, COPd, DM Subjective Information Pt asleep at time of visit, RN stated he does not like to talk Current Diet Order/ Nutrition Support regular Pertinent Medications lipitor, maalox, MOM, glucophage Pertinent Labs 04/19: Na 141, K 4.1, Cl 106, CO2 29.8, BUN 17, Cr 0.7, glucos 123, Ca 9.1 Nutritional Hx/Data Height 1.78 m Height (Calculated Centimeters) 177.8 Current Weight (lbs) 97.069 kg Weight (Calculated Kilograms) 97.1 Weight (Calculated Grams) 80874.8 Body Mass Index (BMI) 30.7 Weight Status Obese GI Symptoms GI Symptoms None Last BM 04/20 x 2 Cultural/Ethnic/Confucianist Belief unknown Usual diet at home regular Skin Integrity/Comment: bibi score 21 Current %PO Good (75-100%) Estimated Nutritional Goals BEE in Kcals: Adj wt of IBW Calories/Kcals/Kg 25-30kcals/kg Kcals Calculated 2025-2430kcals/day Protein: Adj wt of IBW Protein g/kg/kg Protein Calculated 81g/day Fluid: ml 202-2430ml/day (1ml/kcal) Nutritional Problem 1. Problem Problem Obesity related to Etiology decreased nutrient needs as evidenced by Signs/Symptoms: BMI 30.7. Intervention/Recommendation Comments Recommend continuing Regular diet Expected Outcomes/Goals Expected Outcomes/Goals PO intake >75% of meals
[2018-04-22] MEDS: Albuterol Nebulizer 2.5mg/3mL HHN PRN (19:12)
--- NOTE | 2018-04-23 00:40 | Progress Notes ---
DATE: 04/22/2018 SUBJECTIVE: Chart reviewed and the patient interviewed. Also, discussed the patient's condition with the staff and reviewed records and labs. The patient is still having unpredictable behavior and he is still focused on smoking and food. The patient also is still demanding. The patient also is still easily agitated and restless and still has mood swings. Otherwise, the patient is compliant with taking his medications. Discussed with the patient going to [facility] and especially still complaining of pain in different areas of his body and also generalized weakness and the patient does not want to go back to [facility] and not go to a long-term for rehabilitation. At the same time, we will continue monitoring his behavior and adjusting psychotropic medications and work on discharge plans. JOB# [id number]
--- NOTE | 2018-04-23 08:35 | General Progress Note ---
Subjective - Review of Systems Service Date: 04/23/18 Subjective: Patient is confused, not oriented. Objective - Results Result Diagrams: 04/18/18 06:50 04/18/18 06:50 Recent Labs: Laboratory Last Values WBC 6.9 Th/cmm (4.8-10.8) 04/18/18 06:50 RBC 4.52 Mil/cmm (4.30-5.70) 04/18/18 06:50 Hgb 14.2 gm/dL (12-16) 04/18/18 06:50 Hct 42.2 % (41.0-60) 04/18/18 06:50 MCV 93.4 fl (80-99) 04/18/18 06:50 MCH 31.4 pg (26.0-30.0) H 04/18/18 06:50 MCHC Differential 33.7 pg (28.0-36.0) 04/18/18 06:50 RDW 13.3 % (11.5-20.0) 04/18/18 06:50 Plt Count 245 Th/cmm (150-400) 04/18/18 06:50 MPV 7.5 fl 04/18/18 06:50 Neutrophils % 45.1 % (40.0-80.0) 04/18/18 06:50 Lymphocytes % 40.1 % (20.0-50.0) 04/18/18 06:50 Monocytes % 9.7 % (2.0-10.0) 04/18/18 06:50 Eosinophils % 4.7 % (0.0-5.0) 04/18/18 06:50 Basophils % 0.4 % (0.0-2.0) 04/18/18 06:50 Sodium 141 mEq/L (136-145) 04/18/18 06:50 Potassium 4.1 mEq/L (3.5-5.1) 04/18/18 06:50 Chloride 106 mEq/L (98-107) 04/18/18 06:50 Carbon Dioxide 29.8 mEq/L (21.0-31.0) 04/18/18 06:50 Anion Gap 9.3 (7.0-16.0) 04/18/18 06:50 BUN 17 mg/dL (7-25) 04/18/18 06:50 Creatinine 0.7 mg/dL (0.7-1.3) 04/18/18 06:50 Est GFR ( Amer) > 60.0 ml/min (>90) 04/18/18 06:50 Est GFR (Non-Af Amer) > 60.0 ml/min 04/18/18 06:50 BUN/Creatinine Ratio 24.3 04/18/18 06:50 Glucose 123 mg/dL (70-105) H 04/18/18 06:50 Calcium 9.1 mg/dL (8.6-10.3) 04/18/18 06:50 Total Bilirubin 0.3 mg/dL (0.3-1.0) 04/18/18 06:50 AST 27 U/L (13-39) 04/18/18 06:50 ALT 25 U/L (7-52) 04/18/18 06:50 Alkaline Phosphatase 37 U/L (34-104) 04/18/18 06:50 Total Protein 6.2 gm/dL (6.0-8.3) 04/18/18 06:50 Albumin 3.2 gm/dL (4.2-5.5) L 04/18/18 06:50 Globulin 3.0 gm/dL 04/18/18 06:50 Albumin/Globulin Ratio 1.1 (1.0-1.8) 04/18/18 06:50 Triglycerides 121 mg/dL (<150) 04/17/18 07:00 Cholesterol 101 mg/dL (<200) 04/17/18 07:00 LDL Cholesterol Direct 59 mg/dL (75-193) L 04/17/18 07:00 HDL Cholesterol 28 mg/dL (23-92) 04/17/18 07:00 TSH 1.53 uIU/ml (0.34-5.60) 04/18/18 06:50 - Physical Exam Vitals and I&O: Vital Signs Temp 97.1 F 04/23/18 06:25 Pulse 62 04/23/18 07:13 Resp 12 04/23/18 07:19 BP 112/76 04/23/18 06:25 Pulse Ox 95 04/23/18 07:13 Intake & Output 04/22/18 04/23/18 04/23/18 18:59 06:59 18:59 Intake Total 240 Balance 240 Intake: Oral 240 Other: # Voids 2 # Bowel Movements 1 Active Medications: Current Medications Acetaminophen (Tylenol) 650 mg PO Q4HR PRN PRN Reason: Mild Pain 1-3/ Temp above 100 Stop: 06/15/18 23:04 Last Admin: 04/17/18 13:08 Dose: 650 mg Al Hydrox/Mg Hydrox/Simethicone (Maalox) 30 ml PO Q4HR PRN PRN Reason: GI DISTRESS Stop: 06/16/18 08:47 Albuterol Sulfate (Albuterol 2.5mg/3ml Neb Ud) 2.5 mg HHN Q4HR PRN PRN Reason: Shortness of Breath Stop: 06/15/18 23:04 Last Admin: 04/22/18 19:12 Dose: 2.5 mg Amlodipine Besylate (Norvasc) 5 mg PO DAILY [facility] Stop: 06/16/18 08:59 Last Admin: 04/22/18 08:50 Dose: 5 mg Aspirin (Aspirin Chewable) 81 mg PO DAILY [facility] Stop: 06/16/18 08:59 Last Admin: 04/22/18 08:50 Dose: 81 mg Atorvastatin Calcium (Lipitor) 40 mg PO HS [facility]; Protocol Stop: 06/16/18 20:59 Last Admin: 04/22/18 20:50 Dose: 40 mg Divalproex Sodium (Depakote Dr) 1,000 mg PO BID [facility]; Protocol Stop: 06/20/18 08:59 Last Admin: 04/22/18 17:10 Dose: Not Given Gabapentin (Neurontin) 400 mg PO TID [facility] Stop: 06/16/18 08:59 Last Admin: 04/22/18 20:51 Dose: 400 mg Glipizide (Glucotrol) 10 mg PO BID [facility] Stop: 06/16/18 08:59 Last Admin: 04/22/18 17:09 Dose: 10 mg Magnesium Hydroxide (Milk Of Magnesia) 30 ml PO HS PRN PRN Reason: Constipation Stop: 06/15/18 23:04 Metformin HCl (Glucophage) 1,000 mg PO BID [facility] Stop: 06/16/18 08:59 Last Admin: 04/22/18 17:10 Dose: Not Given Miscellaneous (Clinical Monitoring) 1 ea MC DAILY PRN PRN Reason: RENAL MONITOR- METFORMIN Stop: 06/16/18 08:37 Mupirocin (Bactroban Oint) 1 appl NS BID [facility] Stop: 04/23/18 17:01 Last Admin: 04/22/18 17:09 Dose: 1 appl Nicotine (Nicotine Transdermal System) 14 mg TD DAILY [facility] Stop: 06/16/18 08:59 Last Admin: 04/22/18 08:52 Dose: 14 mg Olanzapine (Zyprexa) 15 mg PO HS [facility]; Protocol Stop: 06/16/18 20:59 Last Admin: 04/22/18 20:51 Dose: 15 mg Olanzapine (Zyprexa) 10 mg PO DAILY [facility]; Protocol Stop: 06/19/18 08:59 Last Admin: 04/22/18 08:51 Dose: 10 mg Paroxetine HCl (Paxil) 20 mg PO DAILY [facility]; Protocol Stop: 06/16/18 08:59 Last Admin: 04/22/18 08:51 Dose: 20 mg Propranolol HCl (Inderal) 5 mg PO BID [facility] Stop: 06/16/18 08:59 Last Admin: 04/22/18 17:09 Dose: 5 mg Tamsulosin HCl (Flomax) 0.4 mg PO DAILY [facility] Stop: 06/16/18 08:59 Last Admin: 04/22/18 08:50 Dose: 0.4 mg Temazepam (Restoril) 15 mg PO HS PR[facility]; Protocol PRN Reason: Insomnia Stop: 06/15/18 23:16 Last Admin: 04/22/18 22:33 Dose: 15 mg Trazodone HCl (Desyrel) 150 mg PO HS [facility]; Protocol Stop: 06/16/18 20:59 Last Admin: 04/22/18 20:51 Dose: 150 mg General: Alert, No acute distress, Other (Confused) HEENT: Atraumatic Neck: Supple Cardiovascular: Regular rate Lungs: Clear to auscultation Abdomen: Bowel sounds, Soft Extremities: Other (edema) Neurological: Other (Unstable gait) Skin: Other (Warm and dry) Psych/Mental Status: Other (Confused, not oriented) Assessment/Plan - Assessment Assessment: Patient is awake, alert, calm, in no acute distress, confused. Dx: 5150, schizophrenia, bipolar, DM, HTN, Hx of seizure. - Plan Plan: Patient is follow by Psychiatry, will continue with home meds. Nutritional Asmnt/Malnutr-PDOC - Dietary Evaluation Malnutrition Findings (Please click <Entered> for more info): Nutritional Asmnt/Malnutrition Start: 04/21/18 10: 40 Text: Status: Complete Freq: Protocol: Document 04/21/18 10:40 JULIETTE (Rec: 04/21/18 10:45 JULIETTE MARY- [email or web address]) Nutritional Asmnt/Malnutrition Patient General Information Diagnosis psychosis Pertinent Medical Hx/Surgical Hx bipolar, schizophrenia, CAD, HTN, COPd, DM Subjective Information Pt asleep at time of visit, RN stated he does not like to talk Current Diet Order/ Nutrition Support regular Pertinent Medications lipitor, maalox, MOM, glucophage Pertinent Labs 04/19: Na 141, K 4.1, Cl 106, CO2 29.8, BUN 17, Cr 0.7, glucos 123, Ca 9.1 Nutritional Hx/Data Height 1.78 m Height (Calculated Centimeters) 177.8 Current Weight (lbs) 97.069 kg Weight (Calculated Kilograms) 97.1 Weight (Calculated Grams) 78975.8 Body Mass Index (BMI) 30.7 Weight Status Obese GI Symptoms GI Symptoms None Last BM 04/20 x 2 Cultural/Ethnic/Taoist Belief unknown Usual diet at home regular Skin Integrity/Comment: bibi score 21 Current %PO Good (75-100%) Estimated Nutritional Goals BEE in Kcals: Adj wt of IBW Calories/Kcals/Kg 25-30kcals/kg Kcals Calculated 2025-2430kcals/day Protein: Adj wt of IBW Protein g/kg/kg Protein Calculated 81g/day Fluid: ml 202-2430ml/day (1ml/kcal) Nutritional Problem 1. Problem Problem Obesity related to Etiology decreased nutrient needs as evidenced by Signs/Symptoms: BMI 30.7. Intervention/Recommendation Comments Recommend continuing Regular diet Expected Outcomes/Goals Expected Outcomes/Goals PO intake >75% of meals
[2018-04-23] MEDS: Aspirin 81mg Chewable Tab PO SCH (09:30)
[2018-04-23] MEDS: Nicotine 14 mg/24 hr Tdm TD SCH (09:31)
[2018-04-23] MEDS: Albuterol Nebulizer 2.5mg/3mL HHN PRN (20:50)
--- NOTE | 2018-04-24 00:51 | Progress Notes ---
DATE: 04/23/2018 Case was discussed with staff of the patient, reviewed records. A 57-year-old male who was admitted on a hold for danger to self from [place] police officers. He was at [facility], then he was evaluated and sent to [facility]. The patient was living [facility] and he has a history of bipolar disorder. The patient was hospitalized in [facility] several months ago. The patient told the police he wants to jump into traffic and to kill himself in order to get rid of the voices. The patient said that he has been hearing voices and the voices have been bothering him. He also has not been able to get rid of the voices in spite of medication that he is taking. He was paranoid, angry during the assessment and blames that his roommate is doing drugs, has been suspicious, paranoid about the residents in the place where he lives. The patient continues to be unpredictable, continues to be focused and smoking. He is unpredictable, demanding, easily agitated. When I talked to him, he claims that Dr. Jensen told him he should be leaving. However, the notes of Dr. Jensen does not indicate that he has been compliant with the medication with no side effects. He has multiple somatic complaints. Unable to make a safe plan for self-care, very poor insight, loud. When I discussed with him that I need to look at Dr. Jensen notes and discussed with staff, he was very impatient, upset, irritable. He is on Depakote 1000 mg twice a day, Neurontin 400 mg 3 times a day and olanzapine 15 mg at bedtime and 10 mg in the morning and Paxil 20 mg daily and Inderal 5 mg twice a day, temazepam 15 at bedtime as needed, and trazodone 50 mg at bedtime. We will continue to work with the patient in group therapy, milieu therapy, and adjust medications as needed. JOB# [id number]
[2018-04-24] MEDS: Albuterol Nebulizer 2.5mg/3mL HHN PRN ×2 (07:19→19:29)
[2018-04-24] MEDS: Aspirin 81mg Chewable Tab PO SCH (08:32)
[2018-04-24] MEDS: Nicotine 14 mg/24 hr Tdm TD SCH (08:36)
--- NOTE | 2018-04-24 08:56 | General Progress Note ---
Subjective - Review of Systems Service Date: 04/24/18 Subjective: Patient is confused, not oriented. Objective - Results Result Diagrams: 04/18/18 06:50 04/18/18 06:50 Recent Labs: Laboratory Last Values WBC 6.9 Th/cmm (4.8-10.8) 04/18/18 06:50 RBC 4.52 Mil/cmm (4.30-5.70) 04/18/18 06:50 Hgb 14.2 gm/dL (12-16) 04/18/18 06:50 Hct 42.2 % (41.0-60) 04/18/18 06:50 MCV 93.4 fl (80-99) 04/18/18 06:50 MCH 31.4 pg (26.0-30.0) H 04/18/18 06:50 MCHC Differential 33.7 pg (28.0-36.0) 04/18/18 06:50 RDW 13.3 % (11.5-20.0) 04/18/18 06:50 Plt Count 245 Th/cmm (150-400) 04/18/18 06:50 MPV 7.5 fl 04/18/18 06:50 Neutrophils % 45.1 % (40.0-80.0) 04/18/18 06:50 Lymphocytes % 40.1 % (20.0-50.0) 04/18/18 06:50 Monocytes % 9.7 % (2.0-10.0) 04/18/18 06:50 Eosinophils % 4.7 % (0.0-5.0) 04/18/18 06:50 Basophils % 0.4 % (0.0-2.0) 04/18/18 06:50 Sodium 141 mEq/L (136-145) 04/18/18 06:50 Potassium 4.1 mEq/L (3.5-5.1) 04/18/18 06:50 Chloride 106 mEq/L (98-107) 04/18/18 06:50 Carbon Dioxide 29.8 mEq/L (21.0-31.0) 04/18/18 06:50 Anion Gap 9.3 (7.0-16.0) 04/18/18 06:50 BUN 17 mg/dL (7-25) 04/18/18 06:50 Creatinine 0.7 mg/dL (0.7-1.3) 04/18/18 06:50 Est GFR ( Amer) > 60.0 ml/min (>90) 04/18/18 06:50 Est GFR (Non-Af Amer) > 60.0 ml/min 04/18/18 06:50 BUN/Creatinine Ratio 24.3 04/18/18 06:50 Glucose 123 mg/dL (70-105) H 04/18/18 06:50 Calcium 9.1 mg/dL (8.6-10.3) 04/18/18 06:50 Total Bilirubin 0.3 mg/dL (0.3-1.0) 04/18/18 06:50 AST 27 U/L (13-39) 04/18/18 06:50 ALT 25 U/L (7-52) 04/18/18 06:50 Alkaline Phosphatase 37 U/L (34-104) 04/18/18 06:50 Total Protein 6.2 gm/dL (6.0-8.3) 04/18/18 06:50 Albumin 3.2 gm/dL (4.2-5.5) L 04/18/18 06:50 Globulin 3.0 gm/dL 04/18/18 06:50 Albumin/Globulin Ratio 1.1 (1.0-1.8) 04/18/18 06:50 Triglycerides 121 mg/dL (<150) 04/17/18 07:00 Cholesterol 101 mg/dL (<200) 04/17/18 07:00 LDL Cholesterol Direct 59 mg/dL (75-193) L 04/17/18 07:00 HDL Cholesterol 28 mg/dL (23-92) 04/17/18 07:00 TSH 1.53 uIU/ml (0.34-5.60) 04/18/18 06:50 - Physical Exam Vitals and I&O: Vital Signs Temp 98.1 F 04/24/18 06:13 Pulse 73 04/24/18 08:34 Resp 16 04/24/18 07:19 BP 152/89 04/24/18 08:34 Pulse Ox 96 04/24/18 07:19 Intake & Output 04/23/18 04/24/18 04/24/18 18:59 06:59 18:59 Intake Total 1300 120 Balance 1300 120 Intake: Oral 1300 120 Other: # Voids 4 3 # Bowel Movements 1 0 Active Medications: Current Medications Acetaminophen (Tylenol) 650 mg PO Q4HR PRN PRN Reason: Mild Pain 1-3/ Temp above 100 Stop: 06/15/18 23:04 Last Admin: 04/17/18 13:08 Dose: 650 mg Al Hydrox/Mg Hydrox/Simethicone (Maalox) 30 ml PO Q4HR PRN PRN Reason: GI DISTRESS Stop: 06/16/18 08:47 Albuterol Sulfate (Albuterol 2.5mg/3ml Neb Ud) 2.5 mg HHN Q4HR PRN PRN Reason: Shortness of Breath Stop: 06/15/18 23:04 Last Admin: 04/24/18 07:19 Dose: 2.5 mg Amlodipine Besylate (Norvasc) 5 mg PO DAILY [facility] Stop: 06/16/18 08:59 Last Admin: 04/24/18 08:34 Dose: 5 mg Aspirin (Aspirin Chewable) 81 mg PO DAILY [facility] Stop: 06/16/18 08:59 Last Admin: 04/24/18 08:32 Dose: 81 mg Atorvastatin Calcium (Lipitor) 40 mg PO HS [facility]; Protocol Stop: 06/16/18 20:59 Last Admin: 04/23/18 20:26 Dose: 40 mg Divalproex Sodium (Depakote Dr) 1,000 mg PO BID [facility]; Protocol Stop: 06/20/18 08:59 Last Admin: 04/24/18 08:32 Dose: 1,000 mg Gabapentin (Neurontin) 400 mg PO TID [facility] Stop: 06/16/18 08:59 Last Admin: 04/24/18 08:32 Dose: 400 mg Glipizide (Glucotrol) 10 mg PO BID [facility] Stop: 06/16/18 08:59 Last Admin: 04/24/18 08:32 Dose: 10 mg Magnesium Hydroxide (Milk Of Magnesia) 30 ml PO HS PRN PRN Reason: Constipation Stop: 06/15/18 23:04 Metformin HCl (Glucophage) 1,000 mg PO BID [facility] Stop: 06/16/18 08:59 Last Admin: 04/24/18 08:32 Dose: 1,000 mg Miscellaneous (Clinical Monitoring) 1 ea [facility] DAILY PRN PRN Reason: RENAL MONITOR- METFORMIN Stop: 06/16/18 08:37 Nicotine (Nicotine Transdermal System) 14 mg TD DAILY [facility] Stop: 06/16/18 08:59 Last Admin: 04/24/18 08:36 Dose: 14 mg Olanzapine (Zyprexa) 15 mg PO HS [facility]; Protocol Stop: 06/16/18 20:59 Last Admin: 04/23/18 20:27 Dose: 15 mg Olanzapine (Zyprexa) 10 mg PO DAILY [facility]; Protocol Stop: 06/19/18 08:59 Last Admin: 04/24/18 08:31 Dose: 10 mg Paroxetine HCl (Paxil) 20 mg PO DAILY [facility]; Protocol Stop: 06/16/18 08:59 Last Admin: 04/24/18 08:31 Dose: 20 mg Propranolol HCl (Inderal) 5 mg PO BID [facility] Stop: 06/16/18 08:59 Last Admin: 04/24/18 08:33 Dose: 5 mg Tamsulosin HCl (Flomax) 0.4 mg PO DAILY [facility] Stop: 06/16/18 08:59 Last Admin: 04/24/18 08:32 Dose: 0.4 mg Temazepam (Restoril) 15 mg PO HS PRN; Protocol PRN Reason: Insomnia Stop: 06/15/18 23:16 Last Admin: 04/23/18 21:30 Dose: 15 mg Trazodone HCl (Desyrel) 150 mg PO HS [facility]; Protocol Stop: 06/16/18 20:59 Last Admin: 04/23/18 20:28 Dose: 150 mg General: Alert, No acute distress, Other (Confused) HEENT: Atraumatic Neck: Supple Cardiovascular: Regular rate Lungs: Clear to auscultation Abdomen: Bowel sounds, Soft Extremities: Other (edema) Neurological: Other (Unstable gait) Skin: Other (Warm and dry) Psych/Mental Status: Other (Confused, not oriented) Assessment/Plan - Assessment Assessment: Patient is awake, alert, calm, in no acute distress, confused. Dx: 5150, schizophrenia, bipolar, DM, HTN, Hx of seizure. - Plan Plan: Patient is follow by Psychiatry, will continue with home meds. Nutritional Asmnt/Malnutr-PDOC - Dietary Evaluation Malnutrition Findings (Please click <Entered> for more info): Nutritional Asmnt/Malnutrition Start: 04/21/18 10: 40 Text: Status: Complete Freq: Protocol: Document 04/21/18 10:40 JULIETTE (Rec: 04/21/18 10:45 JULIETTE HERNANDEZ- FNS1) Nutritional Asmnt/Malnutrition Patient General Information Diagnosis psychosis Pertinent Medical Hx/Surgical Hx bipolar, schizophrenia, CAD, HTN, COPd, DM Subjective Information Pt asleep at time of visit, RN stated he does not like to talk Current Diet Order/ Nutrition Support regular Pertinent Medications lipitor, maalox, MOM, glucophage Pertinent Labs 04/19: Na 141, K 4.1, Cl 106, CO2 29.8, BUN 17, Cr 0.7, glucos 123, Ca 9.1 Nutritional Hx/Data Height 1.78 m Height (Calculated Centimeters) 177.8 Current Weight (lbs) 97.069 kg Weight (Calculated Kilograms) 97.1 Weight (Calculated Grams) 97039.8 Body Mass Index (BMI) 30.7 Weight Status Obese GI Symptoms GI Symptoms None Last BM 04/20 x 2 Cultural/Ethnic/Worship Belief unknown Usual diet at home regular Skin Integrity/Comment: bibi score 21 Current %PO Good (75-100%) Estimated Nutritional Goals BEE in Kcals: Adj wt of IBW Calories/Kcals/Kg 25-30kcals/kg Kcals Calculated 2024-2430kcals/day Protein: Adj wt of IBW Protein g/kg/kg Protein Calculated 81g/day Fluid: ml 2024-2430ml/day (1ml/kcal) Nutritional Problem 1. Problem Problem Obesity related to Etiology decreased nutrient needs as evidenced by Signs/Symptoms: BMI 30.7. Intervention/Recommendation Comments Recommend continuing Regular diet Expected Outcomes/Goals Expected Outcomes/Goals PO intake >75% of meals
--- NOTE | 2018-04-24 23:57 | Progress Notes ---
DATE: 04/24/2018 Case was discussed with staff of the patient, reviewed records. Apparently, the patient was supposed to be going to [facility]. He was living in a board and care; however, he has a conservator that have to agree to it, so that ____ in the way of his discharge. The patient; however, continues to be irritable. Continues to be unpredictable and impulsive. The ____ hearing voices. He has been compliant with the medication with no side effects, no sedation, no nausea, no extrapyramidal symptoms. The watch caser, Ms. Salas told me that she tried to call the conservator to see if they agree for him to go to [facility] to work on discharge plan and meanwhile, we will continue to work with the patient in group therapy, milieu therapy and adjust the medications as needed. JOB# [id number]
[2018-04-25] MEDS: Aspirin 81mg Chewable Tab PO SCH (08:33)
[2018-04-25] MEDS: Nicotine 14 mg/24 hr Tdm TD SCH (10:00)
--- NOTE | 2018-04-25 17:22 | General Progress Note ---
Subjective - Review of Systems Service Date: 04/25/18 Subjective: Patient is confused, not oriented. Objective - Results Result Diagrams: 04/18/18 06:50 04/18/18 06:50 Recent Labs: Laboratory Last Values WBC 6.9 Th/cmm (4.8-10.8) 04/18/18 06:50 RBC 4.52 Mil/cmm (4.30-5.70) 04/18/18 06:50 Hgb 14.2 gm/dL (12-16) 04/18/18 06:50 Hct 42.2 % (41.0-60) 04/18/18 06:50 MCV 93.4 fl (80-99) 04/18/18 06:50 MCH 31.4 pg (26.0-30.0) H 04/18/18 06:50 MCHC Differential 33.7 pg (28.0-36.0) 04/18/18 06:50 RDW 13.3 % (11.5-20.0) 04/18/18 06:50 Plt Count 245 Th/cmm (150-400) 04/18/18 06:50 MPV 7.5 fl 04/18/18 06:50 Neutrophils % 45.1 % (40.0-80.0) 04/18/18 06:50 Lymphocytes % 40.1 % (20.0-50.0) 04/18/18 06:50 Monocytes % 9.7 % (2.0-10.0) 04/18/18 06:50 Eosinophils % 4.7 % (0.0-5.0) 04/18/18 06:50 Basophils % 0.4 % (0.0-2.0) 04/18/18 06:50 Sodium 141 mEq/L (136-145) 04/18/18 06:50 Potassium 4.1 mEq/L (3.5-5.1) 04/18/18 06:50 Chloride 106 mEq/L (98-107) 04/18/18 06:50 Carbon Dioxide 29.8 mEq/L (21.0-31.0) 04/18/18 06:50 Anion Gap 9.3 (7.0-16.0) 04/18/18 06:50 BUN 17 mg/dL (7-25) 04/18/18 06:50 Creatinine 0.7 mg/dL (0.7-1.3) 04/18/18 06:50 Est GFR ( Amer) > 60.0 ml/min (>90) 04/18/18 06:50 Est GFR (Non-Af Amer) > 60.0 ml/min 04/18/18 06:50 BUN/Creatinine Ratio 24.3 04/18/18 06:50 Glucose 123 mg/dL (70-105) H 04/18/18 06:50 Calcium 9.1 mg/dL (8.6-10.3) 04/18/18 06:50 Total Bilirubin 0.3 mg/dL (0.3-1.0) 04/18/18 06:50 AST 27 U/L (13-39) 04/18/18 06:50 ALT 25 U/L (7-52) 04/18/18 06:50 Alkaline Phosphatase 37 U/L (34-104) 04/18/18 06:50 Total Protein 6.2 gm/dL (6.0-8.3) 04/18/18 06:50 Albumin 3.2 gm/dL (4.2-5.5) L 04/18/18 06:50 Globulin 3.0 gm/dL 04/18/18 06:50 Albumin/Globulin Ratio 1.1 (1.0-1.8) 04/18/18 06:50 Triglycerides 121 mg/dL (<150) 04/17/18 07:00 Cholesterol 101 mg/dL (<200) 04/17/18 07:00 LDL Cholesterol Direct 59 mg/dL (75-193) L 04/17/18 07:00 HDL Cholesterol 28 mg/dL (23-92) 04/17/18 07:00 TSH 1.53 uIU/ml (0.34-5.60) 04/18/18 06:50 - Physical Exam Vitals and I&O: Vital Signs Temp 97.6 F 04/25/18 14:00 Pulse 72 04/25/18 17:06 Resp 20 04/25/18 14:00 BP 106/68 04/25/18 17:06 Pulse Ox 96 04/25/18 14:00 Intake & Output 04/24/18 04/25/18 04/25/18 18:59 06:59 18:59 Intake Total 300 Balance 300 Intake: Oral 300 Other: # Voids 1 # Bowel Movements 0 Stool Characteristics Soft Active Medications: Current Medications Acetaminophen (Tylenol) 650 mg PO Q4HR PRN PRN Reason: Mild Pain 1-3/ Temp above 100 Stop: 06/15/18 23:04 Last Admin: 04/17/18 13:08 Dose: 650 mg Al Hydrox/Mg Hydrox/Simethicone (Maalox) 30 ml PO Q4HR PRN PRN Reason: GI DISTRESS Stop: 06/16/18 08:47 Albuterol Sulfate (Albuterol 2.5mg/3ml Neb Ud) 2.5 mg HHN Q4HR PRN PRN Reason: Shortness of Breath Stop: 06/15/18 23:04 Last Admin: 04/24/18 19:29 Dose: 2.5 mg Amlodipine Besylate (Norvasc) 5 mg PO DAILY [facility] Stop: 06/16/18 08:59 Last Admin: 04/25/18 08:36 Dose: 5 mg Aspirin (Aspirin Chewable) 81 mg PO DAILY [facility] Stop: 06/16/18 08:59 Last Admin: 04/25/18 08:33 Dose: 81 mg Atorvastatin Calcium (Lipitor) 40 mg PO HS [facility]; Protocol Stop: 06/16/18 20:59 Last Admin: 04/24/18 20:28 Dose: 40 mg Divalproex Sodium (Depakote Dr) 1,000 mg PO BID [facility]; Protocol Stop: 06/20/18 08:59 Last Admin: 04/25/18 17:05 Dose: 1,000 mg Gabapentin (Neurontin) 400 mg PO TID [facility] Stop: 06/16/18 08:59 Last Admin: 04/25/18 13:55 Dose: 400 mg Glipizide (Glucotrol) 10 mg PO BID [facility] Stop: 06/16/18 08:59 Last Admin: 04/25/18 17:05 Dose: 10 mg Magnesium Hydroxide (Milk Of Magnesia) 30 ml PO HS PRN PRN Reason: Constipation Stop: 06/15/18 23:04 Metformin HCl (Glucophage) 1,000 mg PO BID [facility] Stop: 06/16/18 08:59 Last Admin: 04/25/18 17:05 Dose: 1,000 mg Miscellaneous (Clinical Monitoring) 1 ea [facility] DAILY PRN PRN Reason: RENAL MONITOR- METFORMIN Stop: 06/16/18 08:37 Nicotine (Nicotine Transdermal System) 14 mg TD DAILY [facility] Stop: 06/16/18 08:59 Last Admin: 04/25/18 10:00 Dose: 14 mg Olanzapine (Zyprexa) 15 mg PO HS [facility]; Protocol Stop: 06/16/18 20:59 Last Admin: 04/24/18 20:32 Dose: 15 mg Olanzapine (Zyprexa) 10 mg PO DAILY [facility]; Protocol Stop: 06/19/18 08:59 Last Admin: 04/25/18 08:36 Dose: 10 mg Paroxetine HCl (Paxil) 20 mg PO DAILY [facility]; Protocol Stop: 06/16/18 08:59 Last Admin: 04/25/18 08:36 Dose: 20 mg Propranolol HCl (Inderal) 5 mg PO BID [facility] Stop: 06/16/18 08:59 Last Admin: 04/25/18 17:06 Dose: 5 mg Tamsulosin HCl (Flomax) 0.4 mg PO DAILY [facility] Stop: 06/16/18 08:59 Last Admin: 04/25/18 08:36 Dose: 0.4 mg Temazepam (Restoril) 15 mg PO HS [facility]; Protocol PRN Reason: Insomnia Stop: 06/15/18 23:16 Last Admin: 04/24/18 22:35 Dose: 15 mg Trazodone HCl (Desyrel) 150 mg PO HS [facility]; Protocol Stop: 06/16/18 20:59 Last Admin: 04/24/18 20:32 Dose: 150 mg General: Alert, No acute distress, Other (Confused) HEENT: Atraumatic Neck: Supple Cardiovascular: Regular rate Lungs: Clear to auscultation Abdomen: Bowel sounds, Soft Extremities: Other (edema) Neurological: Other (Unstable gait) Skin: Other (Warm and dry) Psych/Mental Status: Other (Confused, not oriented) Assessment/Plan - Assessment Assessment: Patient is awake, alert, calm, in no acute distress, confused. Dx: 5150, schizophrenia, bipolar, DM, HTN, Hx of seizure. - Plan Plan: Patient is follow by Psychiatry, will continue with home meds. Nutritional Asmnt/Malnutr-PDOC - Dietary Evaluation Malnutrition Findings (Please click <Entered> for more info): Nutritional Asmnt/Malnutrition Start: 04/21/18 10: 40 Text: Status: Complete Freq: Protocol: Document 04/21/18 10:40 JULIETTE (Rec: 04/21/18 10:45 JULIETTE HERNANDEZ- FNS1) Nutritional Asmnt/Malnutrition Patient General Information Diagnosis psychosis Pertinent Medical Hx/Surgical Hx bipolar, schizophrenia, CAD, HTN, COPd, DM Subjective Information Pt asleep at time of visit, RN stated he does not like to talk Current Diet Order/ Nutrition Support regular Pertinent Medications lipitor, maalox, MOM, glucophage Pertinent Labs 04/19: Na 141, K 4.1, Cl 106, CO2 29.8, BUN 17, Cr 0.7, glucos 123, Ca 9.1 Nutritional Hx/Data Height 1.78 m Height (Calculated Centimeters) 177.8 Current Weight (lbs) 97.069 kg Weight (Calculated Kilograms) 97.1 Weight (Calculated Grams) 67975.8 Body Mass Index (BMI) 30.7 Weight Status Obese GI Symptoms GI Symptoms None Last BM 04/20 x 2 Cultural/Ethnic/Rastafari Belief unknown Usual diet at home regular Skin Integrity/Comment: bibi score 21 Current %PO Good (75-100%) Estimated Nutritional Goals BEE in Kcals: Adj wt of IBW Calories/Kcals/Kg 25-30kcals/kg Kcals Calculated 2024-2430kcals/day Protein: Adj wt of IBW Protein g/kg/kg Protein Calculated 81g/day Fluid: ml 2024-2430ml/day (1ml/kcal) Nutritional Problem 1. Problem Problem Obesity related to Etiology decreased nutrient needs as evidenced by Signs/Symptoms: BMI 30.7. Intervention/Recommendation Comments Recommend continuing Regular diet Expected Outcomes/Goals Expected Outcomes/Goals PO intake >75% of meals
[2018-04-25] MEDS: Albuterol Nebulizer 2.5mg/3mL HHN PRN (19:03)
--- NOTE | 2018-04-25 20:34 | Psychiatric Evaluation ---
DATE OF SERVICE: PSYCHIATRIC LETTER Public Guardian Office ____ Dear Perez: The patient has been under my care and treatment on the Geropsych Unit at [facility]. He was living in [facility]. At this time and with his current condition, I recommend that he should go into SNF facility that is locked. [facility] accepted the patient and the patient can go there with your approval. He currently is still irritable and agitated and will need more closer observation for both his psychiatric as well as his medical condition. If you have any further questions, please do not hesitate to contact me Sincerely, JOB# [id number]
--- NOTE | 2018-04-26 02:51 | Progress Notes ---
DATE: SUBJECTIVE: Chart reviewed and the patient interviewed. Also discussed the patient's condition with the staff and reviewed records and labs. The patient is still in an irritable mood and still feels depressed. The patient also is still feeling hopeless and helpless. He also is still demanding at times and needs to be going to certain places. Otherwise, the patient is compliant with taking medications with no side effects. ASSESSMENT: The patient is still in an irritable mood and is sometime depressed. TREATMENT PLAN: Continue to monitor behavior and condition and continue to work on his discharge plans. After the [facility] wanted to take the patient and I dictated a letter for public guardian to send him there, yet they said that they cannot take him because he has no Medicare days. We will work with human services case manager in regard to placement issue and discharge plans. JOB# [id number]
[2018-04-26] MEDS: Albuterol Nebulizer 2.5mg/3mL HHN PRN (06:52)
[2018-04-26] MEDS: Nicotine 14 mg/24 hr Tdm TD SCH (08:11)
[2018-04-26] MEDS: Aspirin 81mg Chewable Tab PO SCH (08:14)
--- NOTE | 2018-04-26 08:50 | General Progress Note ---
Subjective - Review of Systems Service Date: 04/26/18 Subjective: Patient is confused, not oriented. Objective - Results Result Diagrams: 04/18/18 06:50 04/18/18 06:50 Recent Labs: Laboratory Last Values WBC 6.9 Th/cmm (4.8-10.8) 04/18/18 06:50 RBC 4.52 Mil/cmm (4.30-5.70) 04/18/18 06:50 Hgb 14.2 gm/dL (12-16) 04/18/18 06:50 Hct 42.2 % (41.0-60) 04/18/18 06:50 MCV 93.4 fl (80-99) 04/18/18 06:50 MCH 31.4 pg (26.0-30.0) H 04/18/18 06:50 MCHC Differential 33.7 pg (28.0-36.0) 04/18/18 06:50 RDW 13.3 % (11.5-20.0) 04/18/18 06:50 Plt Count 245 Th/cmm (150-400) 04/18/18 06:50 MPV 7.5 fl 04/18/18 06:50 Neutrophils % 45.1 % (40.0-80.0) 04/18/18 06:50 Lymphocytes % 40.1 % (20.0-50.0) 04/18/18 06:50 Monocytes % 9.7 % (2.0-10.0) 04/18/18 06:50 Eosinophils % 4.7 % (0.0-5.0) 04/18/18 06:50 Basophils % 0.4 % (0.0-2.0) 04/18/18 06:50 Sodium 141 mEq/L (136-145) 04/18/18 06:50 Potassium 4.1 mEq/L (3.5-5.1) 04/18/18 06:50 Chloride 106 mEq/L (98-107) 04/18/18 06:50 Carbon Dioxide 29.8 mEq/L (21.0-31.0) 04/18/18 06:50 Anion Gap 9.3 (7.0-16.0) 04/18/18 06:50 BUN 17 mg/dL (7-25) 04/18/18 06:50 Creatinine 0.7 mg/dL (0.7-1.3) 04/18/18 06:50 Est GFR ( Amer) > 60.0 ml/min (>90) 04/18/18 06:50 Est GFR (Non-Af Amer) > 60.0 ml/min 04/18/18 06:50 BUN/Creatinine Ratio 24.3 04/18/18 06:50 Glucose 123 mg/dL (70-105) H 04/18/18 06:50 Calcium 9.1 mg/dL (8.6-10.3) 04/18/18 06:50 Total Bilirubin 0.3 mg/dL (0.3-1.0) 04/18/18 06:50 AST 27 U/L (13-39) 04/18/18 06:50 ALT 25 U/L (7-52) 04/18/18 06:50 Alkaline Phosphatase 37 U/L (34-104) 04/18/18 06:50 Total Protein 6.2 gm/dL (6.0-8.3) 04/18/18 06:50 Albumin 3.2 gm/dL (4.2-5.5) L 04/18/18 06:50 Globulin 3.0 gm/dL 04/18/18 06:50 Albumin/Globulin Ratio 1.1 (1.0-1.8) 04/18/18 06:50 Triglycerides 121 mg/dL (<150) 04/17/18 07:00 Cholesterol 101 mg/dL (<200) 04/17/18 07:00 LDL Cholesterol Direct 59 mg/dL (75-193) L 04/17/18 07:00 HDL Cholesterol 28 mg/dL (23-92) 04/17/18 07:00 TSH 1.53 uIU/ml (0.34-5.60) 04/18/18 06:50 - Physical Exam Vitals and I&O: Vital Signs Temp 97 F 04/26/18 06:45 Pulse 64 04/26/18 08:16 Resp 18 04/26/18 06:53 BP 115/72 04/26/18 08:16 Pulse Ox 94 04/26/18 06:53 Intake & Output 04/25/18 04/26/18 04/26/18 18:59 06:59 18:59 Intake Total 900 120 Balance 900 120 Intake: Oral 900 120 Other: # Voids 3 3 # Bowel Movements 1 Stool Characteristics Soft Soft Active Medications: Current Medications Acetaminophen (Tylenol) 650 mg PO Q4HR PRN PRN Reason: Mild Pain 1-3/ Temp above 100 Stop: 06/15/18 23:04 Last Admin: 04/25/18 18:35 Dose: 650 mg Al Hydrox/Mg Hydrox/Simethicone (Maalox) 30 ml PO Q4HR PRN PRN Reason: GI DISTRESS Stop: 06/16/18 08:47 Albuterol Sulfate (Albuterol 2.5mg/3ml Neb Ud) 2.5 mg HHN Q4HR PRN PRN Reason: Shortness of Breath Stop: 06/15/18 23:04 Last Admin: 04/26/18 06:52 Dose: 2.5 mg Amlodipine Besylate (Norvasc) 5 mg PO DAILY [facility] Stop: 06/16/18 08:59 Last Admin: 04/26/18 08:14 Dose: 5 mg Aspirin (Aspirin Chewable) 81 mg PO DAILY [facility] Stop: 06/16/18 08:59 Last Admin: 04/26/18 08:14 Dose: 81 mg Atorvastatin Calcium (Lipitor) 40 mg PO HS [facility]; Protocol Stop: 06/16/18 20:59 Last Admin: 04/25/18 20:34 Dose: 40 mg Divalproex Sodium (Depakote Dr) 1,000 mg PO BID [facility]; Protocol Stop: 06/20/18 08:59 Last Admin: 04/26/18 08:13 Dose: 1,000 mg Gabapentin (Neurontin) 400 mg PO TID [facility] Stop: 06/16/18 08:59 Last Admin: 04/26/18 08:15 Dose: 400 mg Glipizide (Glucotrol) 10 mg PO BID [facility] Stop: 06/16/18 08:59 Last Admin: 04/26/18 08:15 Dose: 10 mg Magnesium Hydroxide (Milk Of Magnesia) 30 ml PO HS PRN PRN Reason: Constipation Stop: 06/15/18 23:04 Metformin HCl (Glucophage) 1,000 mg PO BID [facility] Stop: 06/16/18 08:59 Last Admin: 04/26/18 08:15 Dose: 1,000 mg Miscellaneous (Clinical Monitoring) 1 ea MC DAILY PRN PRN Reason: RENAL MONITOR- METFORMIN Stop: 06/16/18 08:37 Nicotine (Nicotine Transdermal System) 14 mg TD DAILY [facility] Stop: 06/16/18 08:59 Last Admin: 04/26/18 08:11 Dose: 14 mg Olanzapine (Zyprexa) 15 mg PO HS [facility]; Protocol Stop: 06/16/18 20:59 Last Admin: 04/25/18 20:36 Dose: 15 mg Olanzapine (Zyprexa) 10 mg PO DAILY [facility]; Protocol Stop: 06/19/18 08:59 Last Admin: 04/26/18 08:15 Dose: 10 mg Paroxetine HCl (Paxil) 20 mg PO DAILY [facility]; Protocol Stop: 06/16/18 08:59 Last Admin: 04/26/18 08:13 Dose: 20 mg Propranolol HCl (Inderal) 5 mg PO BID [facility] Stop: 06/16/18 08:59 Last Admin: 04/26/18 08:16 Dose: 5 mg Tamsulosin HCl (Flomax) 0.4 mg PO DAILY [facility] Stop: 06/16/18 08:59 Last Admin: 04/26/18 08:16 Dose: 0.4 mg Temazepam (Restoril) 15 mg PO HS PRN; Protocol PRN Reason: Insomnia Stop: 06/15/18 23:16 Last Admin: 04/25/18 22:12 Dose: 15 mg Trazodone HCl (Desyrel) 150 mg PO HS [facility]; Protocol Stop: 06/16/18 20:59 Last Admin: 04/25/18 20:35 Dose: 150 mg General: Alert, No acute distress, Other (Confused) HEENT: Atraumatic Neck: Supple Cardiovascular: Regular rate Lungs: Clear to auscultation Abdomen: Bowel sounds, Soft Extremities: Other (edema) Neurological: Other (Unstable gait) Skin: Other (Warm and dry) Psych/Mental Status: Other (Confused, not oriented) Assessment/Plan - Assessment Assessment: Patient is awake, alert, calm, in no acute distress, confused. Dx: 5150, schizophrenia, bipolar, DM, HTN, Hx of seizure. - Plan Plan: Patient is follow by Psychiatry, will continue with home meds. Nutritional Asmnt/Malnutr-PDOC - Dietary Evaluation Malnutrition Findings (Please click <Entered> for more info): Nutritional Asmnt/Malnutrition Start: 11/24/18 10: 40 Text: Status: Complete Freq: Protocol: Document 04/21/18 10:40 JULIETTE (Rec: 04/21/18 10:45 JULIETTE HERNANDEZ- [id number]) Nutritional Asmnt/Malnutrition Patient General Information Diagnosis psychosis Pertinent Medical Hx/Surgical Hx bipolar, schizophrenia, CAD, HTN, COPd, DM Subjective Information Pt asleep at time of visit, RN stated he does not like to talk Current Diet Order/ Nutrition Support regular Pertinent Medications lipitor, maalox, MOM, glucophage Pertinent Labs 04/19: Na 141, K 4.1, Cl 106, CO2 29.8, BUN 17, Cr 0.7, glucos 123, Ca 9.1 Nutritional Hx/Data Height 1.78 m Height (Calculated Centimeters) 177.8 Current Weight (lbs) 97.069 kg Weight (Calculated Kilograms) 97.1 Weight (Calculated Grams) 67482.8 Body Mass Index (BMI) 30.7 Weight Status Obese GI Symptoms GI Symptoms None Last BM 04/20 x 2 Cultural/Ethnic/Nondenominational Belief unknown Usual diet at home regular Skin Integrity/Comment: bibi score 21 Current %PO Good (75-100%) Estimated Nutritional Goals BEE in Kcals: Adj wt of IBW Calories/Kcals/Kg 25-30kcals/kg Kcals Calculated 2024-2430kcals/day Protein: Adj wt of IBW Protein g/kg/kg Protein Calculated 81g/day Fluid: ml 2024-2430ml/day (1ml/kcal) Nutritional Problem 1. Problem Problem Obesity related to Etiology decreased nutrient needs as evidenced by Signs/Symptoms: BMI 30.7. Intervention/Recommendation Comments Recommend continuing Regular diet Expected Outcomes/Goals Expected Outcomes/Goals PO intake >75% of meals
[2018-04-26] MEDS: Magnesium Hydroxide (MOM) 30 mL UDC PO PRN (20:53)
--- NOTE | 2018-04-27 06:09 | Progress Notes ---
DATE: 04/26/2018 PSYCHIATRIC PROGRESS NOTE SUBJECTIVE: Chart reviewed and the patient interviewed. Also discussed the patient's condition with the staff and reviewed records and labs. The patient is still anxious and still has episodes of irritability and agitation and demanding. He also is still suspicious and is still paranoid. He is sleeping better and he is compliant with taking his medications since I increased his Zyprexa. Otherwise, no other issues or problems with the patient, but at the same time, placement is an issue. ASSESSMENT: The patient still needs placement and needs monitoring. TREATMENT PLAN: Continue to ____ and his condition and continue to work on placement issue and discharge plans. JOB# [id number]
--- NOTE | 2018-04-27 08:34 | General Progress Note ---
Subjective - Review of Systems Service Date: 04/27/18 Subjective: Patient is confused, not oriented. Objective - Results Result Diagrams: 04/18/18 06:50 04/18/18 06:50 Recent Labs: Laboratory Last Values WBC 6.9 Th/cmm (4.8-10.8) 04/18/18 06:50 RBC 4.52 Mil/cmm (4.30-5.70) 04/18/18 06:50 Hgb 14.2 gm/dL (12-16) 04/18/18 06:50 Hct 42.2 % (41.0-60) 04/18/18 06:50 MCV 93.4 fl (80-99) 04/18/18 06:50 MCH 31.4 pg (26.0-30.0) H 04/18/18 06:50 MCHC Differential 33.7 pg (28.0-36.0) 04/18/18 06:50 RDW 13.3 % (11.5-20.0) 04/18/18 06:50 Plt Count 245 Th/cmm (150-400) 04/18/18 06:50 MPV 7.5 fl 04/18/18 06:50 Neutrophils % 45.1 % (40.0-80.0) 04/18/18 06:50 Lymphocytes % 40.1 % (20.0-50.0) 04/18/18 06:50 Monocytes % 9.7 % (2.0-10.0) 04/18/18 06:50 Eosinophils % 4.7 % (0.0-5.0) 04/18/18 06:50 Basophils % 0.4 % (0.0-2.0) 04/18/18 06:50 Sodium 141 mEq/L (136-145) 04/18/18 06:50 Potassium 4.1 mEq/L (3.5-5.1) 04/18/18 06:50 Chloride 106 mEq/L (98-107) 04/18/18 06:50 Carbon Dioxide 29.8 mEq/L (21.0-31.0) 04/18/18 06:50 Anion Gap 9.3 (7.0-16.0) 04/18/18 06:50 BUN 17 mg/dL (7-25) 04/18/18 06:50 Creatinine 0.7 mg/dL (0.7-1.3) 04/18/18 06:50 Est GFR ( Amer) > 60.0 ml/min (>90) 04/18/18 06:50 Est GFR (Non-Af Amer) > 60.0 ml/min 04/18/18 06:50 BUN/Creatinine Ratio 24.3 04/18/18 06:50 Glucose 123 mg/dL (70-105) H 04/18/18 06:50 Calcium 9.1 mg/dL (8.6-10.3) 04/18/18 06:50 Total Bilirubin 0.3 mg/dL (0.3-1.0) 04/18/18 06:50 AST 27 U/L (13-39) 04/18/18 06:50 ALT 25 U/L (7-52) 04/18/18 06:50 Alkaline Phosphatase 37 U/L (34-104) 04/18/18 06:50 Total Protein 6.2 gm/dL (6.0-8.3) 04/18/18 06:50 Albumin 3.2 gm/dL (4.2-5.5) L 04/18/18 06:50 Globulin 3.0 gm/dL 04/18/18 06:50 Albumin/Globulin Ratio 1.1 (1.0-1.8) 04/18/18 06:50 Triglycerides 121 mg/dL (<150) 04/17/18 07:00 Cholesterol 101 mg/dL (<200) 04/17/18 07:00 LDL Cholesterol Direct 59 mg/dL (75-193) L 04/17/18 07:00 HDL Cholesterol 28 mg/dL (23-92) 04/17/18 07:00 TSH 1.53 uIU/ml (0.34-5.60) 04/18/18 06:50 - Physical Exam Vitals and I&O: Vital Signs Temp 98 F 04/27/18 06:22 Pulse 70 04/27/18 06:22 Resp 20 04/27/18 06:22 BP 120/70 04/27/18 06:22 Pulse Ox 96 04/26/18 20:19 Intake & Output 04/26/18 04/27/18 04/27/18 18:59 06:59 18:59 Intake Total 1100 480 Balance 1100 480 Intake: Oral 1100 480 Other: # Voids 4 3 # Bowel Movements 1 Stool Characteristics Soft Active Medications: Current Medications Acetaminophen (Tylenol) 650 mg PO Q4HR PRN PRN Reason: Mild Pain 1-3/ Temp above 100 Stop: 06/15/18 23:04 Last Admin: 04/26/18 18:08 Dose: 650 mg Al Hydrox/Mg Hydrox/Simethicone (Maalox) 30 ml PO Q4HR PRN PRN Reason: GI DISTRESS Stop: 06/16/18 08:47 Last Admin: 04/26/18 12:45 Dose: 30 ml Albuterol Sulfate (Albuterol 2.5mg/3ml Neb Ud) 2.5 mg HHN Q4HR PRN PRN Reason: Shortness of Breath Stop: 06/15/18 23:04 Last Admin: 04/26/18 06:52 Dose: 2.5 mg Amlodipine Besylate (Norvasc) 5 mg PO DAILY [facility] Stop: 06/16/18 08:59 Last Admin: 04/26/18 08:14 Dose: 5 mg Aspirin (Aspirin Chewable) 81 mg PO DAILY [facility] Stop: 06/16/18 08:59 Last Admin: 04/26/18 08:14 Dose: 81 mg Atorvastatin Calcium (Lipitor) 40 mg PO HS [facility]; Protocol Stop: 06/16/18 20:59 Last Admin: 04/26/18 20:44 Dose: 40 mg Divalproex Sodium (Depakote Dr) 1,000 mg PO BID [facility]; Protocol Stop: 06/20/18 08:59 Last Admin: 04/26/18 16:38 Dose: 1,000 mg Gabapentin (Neurontin) 400 mg PO TID [facility] Stop: 06/16/18 08:59 Last Admin: 04/26/18 20:45 Dose: 400 mg Glipizide (Glucotrol) 10 mg PO BID [facility] Stop: 06/16/18 08:59 Last Admin: 04/26/18 16:39 Dose: 10 mg Magnesium Hydroxide (Milk Of Magnesia) 30 ml PO HS PRN PRN Reason: Constipation Stop: 06/15/18 23:04 Last Admin: 04/26/18 20:53 Dose: 30 ml Metformin HCl (Glucophage) 1,000 mg PO BID [facility] Stop: 06/16/18 08:59 Last Admin: 04/26/18 16:40 Dose: 1,000 mg Miscellaneous (Clinical Monitoring) 1 ea MC DAILY PRN PRN Reason: RENAL MONITOR- METFORMIN Stop: 06/16/18 08:37 Nicotine (Nicotine Transdermal System) 14 mg TD DAILY [facility] Stop: 06/16/18 08:59 Last Admin: 04/26/18 08:11 Dose: 14 mg Olanzapine (Zyprexa) 15 mg PO HS [facility]; Protocol Stop: 06/16/18 20:59 Last Admin: 04/26/18 20:45 Dose: 15 mg Olanzapine (Zyprexa) 10 mg PO DAILY [facility]; Protocol Stop: 06/19/18 08:59 Last Admin: 04/26/18 08:15 Dose: 10 mg Paroxetine HCl (Paxil) 20 mg PO DAILY [facility]; Protocol Stop: 06/16/18 08:59 Last Admin: 04/26/18 08:13 Dose: 20 mg Propranolol HCl (Inderal) 5 mg PO BID [facility] Stop: 06/16/18 08:59 Last Admin: 04/26/18 16:40 Dose: 5 mg Tamsulosin HCl (Flomax) 0.4 mg PO DAILY [facility] Stop: 06/16/18 08:59 Last Admin: 04/26/18 08:16 Dose: 0.4 mg Temazepam (Restoril) 15 mg PO HS PRN; Protocol PRN Reason: Insomnia Stop: 06/15/18 23:16 Last Admin: 04/26/18 22:13 Dose: 15 mg Trazodone HCl (Desyrel) 150 mg PO HS [facility]; Protocol Stop: 06/16/18 20:59 Last Admin: 04/26/18 20:45 Dose: 150 mg General: Alert, No acute distress, Other (Confused) HEENT: Atraumatic Neck: Supple Cardiovascular: Regular rate Lungs: Clear to auscultation Abdomen: Bowel sounds, Soft Extremities: Other (edema) Neurological: Other (Unstable gait) Skin: Other (Warm and dry) Psych/Mental Status: Other (Confused, not oriented) Assessment/Plan - Assessment Assessment: Patient is awake, alert, calm, in no acute distress, confused. Dx: 5150, schizophrenia, bipolar, DM, HTN, Hx of seizure. - Plan Plan: Patient is follow by Psychiatry, will continue with home meds. Nutritional Asmnt/Malnutr-PDOC - Dietary Evaluation Malnutrition Findings (Please click <Entered> for more info): Nutritional Asmnt/Malnutrition Start: 04/21/18 10: 40 Text: Status: Complete Freq: Protocol: Document 04/21/18 10:40 JULIETTE (Rec: 04/21/18 10:45 JULIETTE MARY- [email or web address]) Nutritional Asmnt/Malnutrition Patient General Information Diagnosis psychosis Pertinent Medical Hx/Surgical Hx bipolar, schizophrenia, CAD, HTN, COPd, DM Subjective Information Pt asleep at time of visit, RN stated he does not like to talk Current Diet Order/ Nutrition Support regular Pertinent Medications lipitor, maalox, MOM, glucophage Pertinent Labs 04/19: Na 141, K 4.1, Cl 106, CO2 29.8, BUN 17, Cr 0.7, glucos 123, Ca 9.1 Nutritional Hx/Data Height 1.78 m Height (Calculated Centimeters) 177.8 Current Weight (lbs) 97.069 kg Weight (Calculated Kilograms) 97.1 Weight (Calculated Grams) 30709.8 Body Mass Index (BMI) 30.7 Weight Status Obese GI Symptoms GI Symptoms None Last BM 04/20 x 2 Cultural/Ethnic/Restoration Belief unknown Usual diet at home regular Skin Integrity/Comment: bibi score 21 Current %PO Good (75-100%) Estimated Nutritional Goals BEE in Kcals: Adj wt of IBW Calories/Kcals/Kg 25-30kcals/kg Kcals Calculated 2024-2430kcals/day Protein: Adj wt of IBW Protein g/kg/kg Protein Calculated 81g/day Fluid: ml 2024-2430ml/day (1ml/kcal) Nutritional Problem 1. Problem Problem Obesity related to Etiology decreased nutrient needs as evidenced by Signs/Symptoms: BMI 30.7. Intervention/Recommendation Comments Recommend continuing Regular diet Expected Outcomes/Goals Expected Outcomes/Goals PO intake >75% of meals
[2018-04-27] MEDS: Nicotine 14 mg/24 hr Tdm TD SCH (08:37)
[2018-04-27] MEDS: Aspirin 81mg Chewable Tab PO SCH (08:44)
[2018-04-27] MEDS: Albuterol Nebulizer 2.5mg/3mL HHN PRN (21:24)
[2018-04-28] MEDS: Albuterol Nebulizer 2.5mg/3mL HHN PRN ×3 (07:14→20:12)
--- NOTE | 2018-04-28 07:43 | General Progress Note ---
Subjective - Review of Systems Service Date: 04/28/18 Subjective: Patient is confused, not oriented. Objective - Results Result Diagrams: 04/18/18 06:50 04/18/18 06:50 Recent Labs: Laboratory Last Values WBC 6.9 Th/cmm (4.8-10.8) 04/18/18 06:50 RBC 4.52 Mil/cmm (4.30-5.70) 04/18/18 06:50 Hgb 14.2 gm/dL (12-16) 04/18/18 06:50 Hct 42.2 % (41.0-60) 04/18/18 06:50 MCV 93.4 fl (80-99) 04/18/18 06:50 MCH 31.4 pg (26.0-30.0) H 04/18/18 06:50 MCHC Differential 33.7 pg (28.0-36.0) 04/18/18 06:50 RDW 13.3 % (11.5-20.0) 04/18/18 06:50 Plt Count 245 Th/cmm (150-400) 04/18/18 06:50 MPV 7.5 fl 04/18/18 06:50 Neutrophils % 45.1 % (40.0-80.0) 04/18/18 06:50 Lymphocytes % 40.1 % (20.0-50.0) 04/18/18 06:50 Monocytes % 9.7 % (2.0-10.0) 04/18/18 06:50 Eosinophils % 4.7 % (0.0-5.0) 04/18/18 06:50 Basophils % 0.4 % (0.0-2.0) 04/18/18 06:50 Sodium 141 mEq/L (136-145) 04/18/18 06:50 Potassium 4.1 mEq/L (3.5-5.1) 04/18/18 06:50 Chloride 106 mEq/L (98-107) 04/18/18 06:50 Carbon Dioxide 29.8 mEq/L (21.0-31.0) 04/18/18 06:50 Anion Gap 9.3 (7.0-16.0) 04/18/18 06:50 BUN 17 mg/dL (7-25) 04/18/18 06:50 Creatinine 0.7 mg/dL (0.7-1.3) 04/18/18 06:50 Est GFR ( Amer) > 60.0 ml/min (>90) 04/18/18 06:50 Est GFR (Non-Af Amer) > 60.0 ml/min 04/18/18 06:50 BUN/Creatinine Ratio 24.3 04/18/18 06:50 Glucose 123 mg/dL (70-105) H 04/18/18 06:50 Calcium 9.1 mg/dL (8.6-10.3) 04/18/18 06:50 Total Bilirubin 0.3 mg/dL (0.3-1.0) 04/18/18 06:50 AST 27 U/L (13-39) 04/18/18 06:50 ALT 25 U/L (7-52) 04/18/18 06:50 Alkaline Phosphatase 37 U/L (34-104) 04/18/18 06:50 Total Protein 6.2 gm/dL (6.0-8.3) 04/18/18 06:50 Albumin 3.2 gm/dL (4.2-5.5) L 04/18/18 06:50 Globulin 3.0 gm/dL 04/18/18 06:50 Albumin/Globulin Ratio 1.1 (1.0-1.8) 04/18/18 06:50 Triglycerides 121 mg/dL (<150) 04/17/18 07:00 Cholesterol 101 mg/dL (<200) 04/17/18 07:00 LDL Cholesterol Direct 59 mg/dL (75-193) L 04/17/18 07:00 HDL Cholesterol 28 mg/dL (23-92) 04/17/18 07:00 TSH 1.53 uIU/ml (0.34-5.60) 04/18/18 06:50 - Physical Exam Vitals and I&O: Vital Signs Temp 97.8 F 04/27/18 21:34 Pulse 66 04/28/18 07:14 Resp 18 04/28/18 07:14 BP 130/103 04/27/18 21:34 Pulse Ox 91 04/28/18 07:14 Intake & Output 04/27/18 04/28/18 04/28/18 18:59 06:59 18:59 Intake Total 1000 Balance 1000 Intake: Oral 1000 Other: # Voids 4 # Bowel Movements 1 Active Medications: Current Medications Acetaminophen (Tylenol) 650 mg PO Q4HR PRN PRN Reason: Mild Pain 1-3/ Temp above 100 Stop: 06/15/18 23:04 Last Admin: 04/26/18 18:08 Dose: 650 mg Al Hydrox/Mg Hydrox/Simethicone (Maalox) 30 ml PO Q4HR PRN PRN Reason: GI DISTRESS Stop: 06/16/18 08:47 Last Admin: 04/26/18 12:45 Dose: 30 ml Albuterol Sulfate (Albuterol 2.5mg/3ml Neb Ud) 2.5 mg HHN Q4HR PRN PRN Reason: Shortness of Breath Stop: 06/15/18 23:04 Last Admin: 04/28/18 07:14 Dose: 2.5 mg Amlodipine Besylate (Norvasc) 5 mg PO DAILY [facility] Stop: 06/16/18 08:59 Last Admin: 04/27/18 08:42 Dose: 5 mg Aspirin (Aspirin Chewable) 81 mg PO DAILY [facility] Stop: 06/16/18 08:59 Last Admin: 04/27/18 08:44 Dose: 81 mg Atorvastatin Calcium (Lipitor) 40 mg PO HS [facility]; Protocol Stop: 06/16/18 20:59 Last Admin: 04/27/18 20:31 Dose: 40 mg Divalproex Sodium (Depakote Dr) 1,000 mg PO BID [facility]; Protocol Stop: 06/20/18 08:59 Last Admin: 04/27/18 17:43 Dose: 1,000 mg Gabapentin (Neurontin) 400 mg PO TID [facility] Stop: 06/16/18 08:59 Last Admin: 04/27/18 20:33 Dose: 400 mg Glipizide (Glucotrol) 10 mg PO BID [facility] Stop: 06/16/18 08:59 Last Admin: 04/27/18 17:44 Dose: 10 mg Magnesium Hydroxide (Milk Of Magnesia) 30 ml PO HS PRN PRN Reason: Constipation Stop: 06/15/18 23:04 Last Admin: 04/26/18 20:53 Dose: 30 ml Metformin HCl (Glucophage) 1,000 mg PO BID [facility] Stop: 06/16/18 08:59 Last Admin: 04/27/18 17:44 Dose: 1,000 mg Miscellaneous (Clinical Monitoring) 1 ea MC DAILY PRN PRN Reason: RENAL MONITOR- METFORMIN Stop: 06/16/18 08:37 Nicotine (Nicotine Transdermal System) 14 mg TD DAILY [facility] Stop: 06/16/18 08:59 Last Admin: 04/27/18 08:37 Dose: 14 mg Olanzapine (Zyprexa) 15 mg PO HS [facility]; Protocol Stop: 06/16/18 20:59 Last Admin: 04/27/18 20:33 Dose: 15 mg Olanzapine (Zyprexa) 10 mg PO DAILY [facility]; Protocol Stop: 06/19/18 08:59 Last Admin: 04/27/18 08:43 Dose: 10 mg Paroxetine HCl (Paxil) 20 mg PO DAILY [facility]; Protocol Stop: 06/16/18 08:59 Last Admin: 04/27/18 08:42 Dose: 20 mg Propranolol HCl (Inderal) 5 mg PO BID [facility] Stop: 06/16/18 08:59 Last Admin: 04/27/18 08:40 Dose: 5 mg Tamsulosin HCl (Flomax) 0.4 mg PO DAILY [facility] Stop: 06/16/18 08:59 Last Admin: 04/27/18 08:39 Dose: 0.4 mg Temazepam (Restoril) 15 mg PO HS PRN; Protocol PRN Reason: Insomnia Stop: 06/15/18 23:16 Last Admin: 04/27/18 21:45 Dose: 15 mg Trazodone HCl (Desyrel) 150 mg PO HS [facility]; Protocol Stop: 06/16/18 20:59 Last Admin: 04/27/18 20:33 Dose: 150 mg General: Alert, No acute distress, Other (Confused) HEENT: Atraumatic Neck: Supple Cardiovascular: Regular rate Lungs: Clear to auscultation Abdomen: Bowel sounds, Soft Extremities: Other (edema) Neurological: Other (Unstable gait) Skin: Other (Warm and dry) Psych/Mental Status: Other (Confused, not oriented) Assessment/Plan - Assessment Assessment: Patient is awake, alert, calm, in no acute distress, confused. Dx: 5150, schizophrenia, bipolar, DM, HTN, Hx of seizure. - Plan Plan: Patient is follow by Psychiatry, will continue with home meds. Nutritional Asmnt/Malnutr-PDOC - Dietary Evaluation Malnutrition Findings (Please click <Entered> for more info): Nutritional Asmnt/Malnutrition Start: 04/21/18 10: 40 Text: Status: Complete Freq: Protocol: Document 04/21/18 10:40 JULIETTE (Rec: 04/21/18 10:45 JULIETTE MARY- [email or web address]) Nutritional Asmnt/Malnutrition Patient General Information Diagnosis psychosis Pertinent Medical Hx/Surgical Hx bipolar, schizophrenia, CAD, HTN, COPd, DM Subjective Information Pt asleep at time of visit, RN stated he does not like to talk Current Diet Order/ Nutrition Support regular Pertinent Medications lipitor, maalox, MOM, glucophage Pertinent Labs 04/19: Na 141, K 4.1, Cl 106, CO2 29.8, BUN 17, Cr 0.7, glucos 123, Ca 9.1 Nutritional Hx/Data Height 1.78 m Height (Calculated Centimeters) 177.8 Current Weight (lbs) 97.069 kg Weight (Calculated Kilograms) 97.1 Weight (Calculated Grams) 77703.8 Body Mass Index (BMI) 30.7 Weight Status Obese GI Symptoms GI Symptoms None Last BM 04/20 x 2 Cultural/Ethnic/Gnosticism Belief unknown Usual diet at home regular Skin Integrity/Comment: bibi score 21 Current %PO Good (75-100%) Estimated Nutritional Goals BEE in Kcals: Adj wt of IBW Calories/Kcals/Kg 25-30kcals/kg Kcals Calculated 2024-2430kcals/day Protein: Adj wt of IBW Protein g/kg/kg Protein Calculated 81g/day Fluid: ml 2024-2430ml/day (1ml/kcal) Nutritional Problem 1. Problem Problem Obesity related to Etiology decreased nutrient needs as evidenced by Signs/Symptoms: BMI 30.7. Intervention/Recommendation Comments Recommend continuing Regular diet Expected Outcomes/Goals Expected Outcomes/Goals PO intake >75% of meals
[2018-04-28] MEDS: Aspirin 81mg Chewable Tab PO SCH (09:57)
[2018-04-28] MEDS: Nicotine 14 mg/24 hr Tdm TD SCH (10:17)
[2018-04-28] MEDS: Magnesium Hydroxide (MOM) 30 mL UDC PO PRN (21:23)
--- NOTE | 2018-04-28 23:46 | Progress Notes ---
DATE: 04/28/2018 SUBJECTIVE: The patient was seen, chart reviewed, and discussed with staff. The patient continues to be very irritable, labile, suspicious and quite paranoid. However, he has been eating and sleeping well, compliant with medications, not required any p.r.n. medications since arrival. PLAN: The patient continues to be very irritable and unpredictable. We will continue current medications and titrate as needed. [facility]# [id number]
[2018-04-29] MEDS: Aspirin 81mg Chewable Tab PO SCH (09:31)
[2018-04-29] MEDS: Nicotine 14 mg/24 hr Tdm TD SCH (09:35)
--- NOTE | 2018-04-29 15:51 | Progress Notes ---
DATE: 04/29/2018 SUBJECTIVE: The patient was seen, chart reviewed, and discussed with staff. The patient continues to be very paranoid, labile, unpredictable, responding to internal stimuli. He has, however, been compliant with medications. Denies any undue side effects. PLAN: The patient continues to be very irritable, unpredictable with poor insight, so that he will require inpatient care facility treatment. We will monitor patient on a daily basis for response to medications and titrate medication as needed. JOB# [id number]
--- NOTE | 2018-04-29 16:00 | Progress Notes ---
DATE: 04/27/2018 SUBJECTIVE: Chart reviewed and the patient interviewed. Also, discussed the patient's condition with the staff and reviewed records and labs. The patient is calmer and he seems to be less agitated and less irritable. The patient also is interacting more, but he still seems to be in a depressed mood. The patient also is still unable to provide any safe plan for self-care and he still has episodes of anger, but no behavioral problems. The patient is compliant with taking his medications with no side effects of medications. ASSESSMENT: The patient is still anxious and depressed, but less agitated. TREATMENT PLAN: Continue to monitor behavior and condition closely. Also, continue working on discharge plans and case planner is unable to find a placement for the patient so far and will continue working on placement issue. JOB# [id number]
[2018-04-29] MEDS: Albuterol Nebulizer 2.5mg/3mL HHN PRN (19:20)
--- NOTE | 2018-04-30 08:40 | General Progress Note ---
Subjective - Review of Systems Service Date: 04/30/18 Subjective: Patient is confused, not oriented. Objective - Results Result Diagrams: 04/18/18 06:50 04/18/18 06:50 Recent Labs: Laboratory Last Values WBC 6.9 Th/cmm (4.8-10.8) 04/18/18 06:50 RBC 4.52 Mil/cmm (4.30-5.70) 04/18/18 06:50 Hgb 14.2 gm/dL (12-16) 04/18/18 06:50 Hct 42.2 % (41.0-60) 04/18/18 06:50 MCV 93.4 fl (80-99) 04/18/18 06:50 MCH 31.4 pg (26.0-30.0) H 04/18/18 06:50 MCHC Differential 33.7 pg (28.0-36.0) 04/18/18 06:50 RDW 13.3 % (11.5-20.0) 04/18/18 06:50 Plt Count 245 Th/cmm (150-400) 04/18/18 06:50 MPV 7.5 fl 04/18/18 06:50 Neutrophils % 45.1 % (40.0-80.0) 04/18/18 06:50 Lymphocytes % 40.1 % (20.0-50.0) 04/18/18 06:50 Monocytes % 9.7 % (2.0-10.0) 04/18/18 06:50 Eosinophils % 4.7 % (0.0-5.0) 04/18/18 06:50 Basophils % 0.4 % (0.0-2.0) 04/18/18 06:50 Sodium 141 mEq/L (136-145) 04/18/18 06:50 Potassium 4.1 mEq/L (3.5-5.1) 04/18/18 06:50 Chloride 106 mEq/L (98-107) 04/18/18 06:50 Carbon Dioxide 29.8 mEq/L (21.0-31.0) 04/18/18 06:50 Anion Gap 9.3 (7.0-16.0) 04/18/18 06:50 BUN 17 mg/dL (7-25) 04/18/18 06:50 Creatinine 0.7 mg/dL (0.7-1.3) 04/18/18 06:50 Est GFR ( Amer) > 60.0 ml/min (>90) 04/18/18 06:50 Est GFR (Non-Af Amer) > 60.0 ml/min 04/18/18 06:50 BUN/Creatinine Ratio 24.3 04/18/18 06:50 Glucose 123 mg/dL (70-105) H 04/18/18 06:50 Calcium 9.1 mg/dL (8.6-10.3) 04/18/18 06:50 Total Bilirubin 0.3 mg/dL (0.3-1.0) 04/18/18 06:50 AST 27 U/L (13-39) 04/18/18 06:50 ALT 25 U/L (7-52) 04/18/18 06:50 Alkaline Phosphatase 37 U/L (34-104) 04/18/18 06:50 Total Protein 6.2 gm/dL (6.0-8.3) 04/18/18 06:50 Albumin 3.2 gm/dL (4.2-5.5) L 04/18/18 06:50 Globulin 3.0 gm/dL 04/18/18 06:50 Albumin/Globulin Ratio 1.1 (1.0-1.8) 04/18/18 06:50 Triglycerides 121 mg/dL (<150) 04/17/18 07:00 Cholesterol 101 mg/dL (<200) 04/17/18 07:00 LDL Cholesterol Direct 59 mg/dL (75-193) L 04/17/18 07:00 HDL Cholesterol 28 mg/dL (23-92) 04/17/18 07:00 TSH 1.53 uIU/ml (0.34-5.60) 04/18/18 06:50 - Physical Exam Vitals and I&O: Vital Signs Temp 97.3 F 04/30/18 06:18 Pulse 82 04/30/18 07:40 Resp 12 04/30/18 07:40 BP 133/70 04/30/18 06:18 Pulse Ox 96 04/30/18 07:40 Intake & Output 04/29/18 04/30/18 04/30/18 18:59 06:59 18:59 Intake Total 120 120 Balance 120 120 Intake: Oral 120 120 Other: # Voids 3 1 # Bowel Movements 1 0 Active Medications: Current Medications Acetaminophen (Tylenol) 650 mg PO Q4HR PRN PRN Reason: Mild Pain 1-3/ Temp above 100 Stop: 06/15/18 23:04 Last Admin: 04/26/18 18:08 Dose: 650 mg Al Hydrox/Mg Hydrox/Simethicone (Maalox) 30 ml PO Q4HR PRN PRN Reason: GI DISTRESS Stop: 06/16/18 08:47 Last Admin: 04/26/18 12:45 Dose: 30 ml Albuterol Sulfate (Albuterol 2.5mg/3ml Neb Ud) 2.5 mg HHN Q4HR PRN PRN Reason: Shortness of Breath Stop: 06/15/18 23:04 Last Admin: 04/29/18 19:20 Dose: 2.5 mg Amlodipine Besylate (Norvasc) 5 mg PO DAILY [facility] Stop: 06/16/18 08:59 Last Admin: 04/29/18 09:30 Dose: 5 mg Aspirin (Aspirin Chewable) 81 mg PO DAILY [facility] Stop: 06/16/18 08:59 Last Admin: 04/29/18 09:31 Dose: 81 mg Atorvastatin Calcium (Lipitor) 40 mg PO HS [facility]; Protocol Stop: 06/16/18 20:59 Last Admin: 04/29/18 20:23 Dose: 40 mg Divalproex Sodium (Depakote Dr) 1,000 mg PO BID [facility]; Protocol Stop: 06/20/18 08:59 Last Admin: 04/29/18 16:52 Dose: 1,000 mg Gabapentin (Neurontin) 400 mg PO TID [facility] Stop: 06/16/18 08:59 Last Admin: 04/29/18 20:24 Dose: 400 mg Glipizide (Glucotrol) 10 mg PO BID [facility] Stop: 06/16/18 08:59 Last Admin: 04/29/18 16:52 Dose: 10 mg Magnesium Hydroxide (Milk Of Magnesia) 30 ml PO HS PRN PRN Reason: Constipation Stop: 06/15/18 23:04 Last Admin: 04/28/18 21:23 Dose: 30 ml Metformin HCl (Glucophage) 1,000 mg PO BID [facility] Stop: 06/16/18 08:59 Last Admin: 04/29/18 16:54 Dose: 1,000 mg Miscellaneous (Clinical Monitoring) 1 ea [facility] DAILY PRN PRN Reason: RENAL MONITOR- METFORMIN Stop: 06/16/18 08:37 Nicotine (Nicotine Transdermal System) 14 mg TD DAILY [facility] Stop: 06/16/18 08:59 Last Admin: 04/29/18 09:35 Dose: 14 mg Olanzapine (Zyprexa) 15 mg PO HS [facility]; Protocol Stop: 06/16/18 20:59 Last Admin: 04/29/18 20:25 Dose: 15 mg Olanzapine (Zyprexa) 10 mg PO DAILY [facility]; Protocol Stop: 06/19/18 08:59 Last Admin: 04/29/18 09:31 Dose: 10 mg Paroxetine HCl (Paxil) 20 mg PO DAILY [facility]; Protocol Stop: 06/16/18 08:59 Last Admin: 04/29/18 09:33 Dose: 20 mg Propranolol HCl (Inderal) 5 mg PO BID [facility] Stop: 06/16/18 08:59 Last Admin: 04/29/18 16:53 Dose: 5 mg Tamsulosin HCl (Flomax) 0.4 mg PO DAILY [facility] Stop: 06/16/18 08:59 Last Admin: 04/29/18 09:29 Dose: 0.4 mg Temazepam (Restoril) 15 mg PO HS [facility]; Protocol PRN Reason: Insomnia Stop: 06/15/18 23:16 Last Admin: 04/29/18 21:24 Dose: 15 mg Trazodone HCl (Desyrel) 150 mg PO HS [facility]; Protocol Stop: 06/16/18 20:59 Last Admin: 04/29/18 20:25 Dose: 150 mg General: Alert, No acute distress, Other (Confused) HEENT: Atraumatic Neck: Supple Cardiovascular: Regular rate Lungs: Clear to auscultation Abdomen: Bowel sounds, Soft Extremities: Other (edema) Neurological: Other (Unstable gait) Skin: Other (Warm and dry) Psych/Mental Status: Other (Confused, not oriented) Assessment/Plan - Assessment Assessment: Patient is awake, alert, calm, in no acute distress, continuing been confused. Dx: 5150, schizophrenia, bipolar, DM, HTN, Hx of seizure. - Plan Plan: Patient is follow by Psychiatry, will continue with home meds. Nutritional Asmnt/Malnutr-PDOC - Dietary Evaluation Malnutrition Findings (Please click <Entered> for more info): Nutritional Asmnt/Malnutrition Start: 04/21/18 10: 40 Text: Status: Complete Freq: Protocol: Document 04/21/18 10:40 JULIETTE (Rec: 04/21/18 10:45 JULIETTE MARY- [email or web address]) Nutritional Asmnt/Malnutrition Patient General Information Diagnosis psychosis Pertinent Medical Hx/Surgical Hx bipolar, schizophrenia, CAD, HTN, COPd, DM Subjective Information Pt asleep at time of visit, RN stated he does not like to talk Current Diet Order/ Nutrition Support regular Pertinent Medications lipitor, maalox, MOM, glucophage Pertinent Labs 04/19: Na 141, K 4.1, Cl 106, CO2 29.8, BUN 17, Cr 0.7, glucos 123, Ca 9.1 Nutritional Hx/Data Height 1.78 m Height (Calculated Centimeters) 177.8 Current Weight (lbs) 97.069 kg Weight (Calculated Kilograms) 97.1 Weight (Calculated Grams) 05961.8 Body Mass Index (BMI) 30.7 Weight Status Obese GI Symptoms GI Symptoms None Last BM 04/20 x 2 Cultural/Ethnic/Orthodoxy Belief unknown Usual diet at home regular Skin Integrity/Comment: bibi score 21 Current %PO Good (75-100%) Estimated Nutritional Goals BEE in Kcals: Adj wt of IBW Calories/Kcals/Kg 25-30kcals/kg Kcals Calculated 2025-2430kcals/day Protein: Adj wt of IBW Protein g/kg/kg Protein Calculated 81g/day Fluid: ml 202-2430ml/day (1ml/kcal) Nutritional Problem 1. Problem Problem Obesity related to Etiology decreased nutrient needs as evidenced by Signs/Symptoms: BMI 30.7. Intervention/Recommendation Comments Recommend continuing Regular diet Expected Outcomes/Goals Expected Outcomes/Goals PO intake >75% of meals
[2018-04-30] MEDS: Nicotine 14 mg/24 hr Tdm TD SCH (09:40)
[2018-04-30] MEDS: Aspirin 81mg Chewable Tab PO SCH (09:43)
[2018-04-30 14:18] LABS: URINE SOURCE CLEAN C
[2018-04-30 14:21] LABS: URINE BILIRUBIN NEGATIVE (NEGATIVE); URINE BLOOD NEGATIVE (NEGATIVE); URINE GLUCOSE (UA) NEGATIVE (NEGATIVE); URINE KETONE TRACE mg/dL (NEGATIVE); URINE LEUKOCYTE ESTERASE NEGATIVE (NEGATIVE); URINE NITRATE NEGATIVE (NEGATIVE); URINE PH 7.5 (4.6 - 8.0); URINE PROTEIN 30 mg/dL (NEGATIVE)
[2018-04-30 14:26] LABS: URINE CLARITY CLEAR (CLEAR); URINE COLOR YELLOW; URINE MICROSCOPIC INDICATED? YES
[2018-04-30 14:28] LABS: URINE BACTERIA OCCASIONAL /hpf (NONE SEEN); URINE EPITHELIAL CELLS FEW /lpf (FEW); URINE RBC 0-2 /hpf (0-5); URINE WBC 0-2 /hpf (0-5)
[2018-04-30] MEDS: Albuterol Nebulizer 2.5mg/3mL HHN PRN (19:07)
--- NOTE | 2018-05-01 04:47 | Progress Notes ---
DATE: SUBJECTIVE: Chart reviewed and the patient interviewed. Also discussed the patient's condition with the staff and reviewed records and labs. The patient is still intrusive to others and is still unpredictable. Also is still needy and demanding. The patient also is still med seeking. Also is attention seeking and he is peeing on his bed, although he can move and go to the bathroom. Otherwise, the patient has continued to work on discharge plans and home health care case manager is still unable to provide a placement for the patient. ASSESSMENT: The patient is still psychotic. TREATMENT PLAN: Continue to monitor behavior and condition closely. Also, we will continue to work on placement issue and discharge plans. JOB# [id number]
[2018-05-01] MEDS: Albuterol Nebulizer 2.5mg/3mL HHN PRN (07:07)
[2018-05-01] MEDS: Aspirin 81mg Chewable Tab PO SCH (08:56)
--- NOTE | 2018-05-01 09:03 | General Progress Note ---
Subjective - Review of Systems Service Date: 05/01/18 Subjective: Patient is confused, not oriented. Objective - Results Result Diagrams: 04/18/18 06:50 04/18/18 06:50 Recent Labs: Laboratory Last Values WBC 6.9 Th/cmm (4.8-10.8) 04/18/18 06:50 RBC 4.52 Mil/cmm (4.30-5.70) 04/18/18 06:50 Hgb 14.2 gm/dL (12-16) 04/18/18 06:50 Hct 42.2 % (41.0-60) 04/18/18 06:50 MCV 93.4 fl (80-99) 04/18/18 06:50 MCH 31.4 pg (26.0-30.0) H 04/18/18 06:50 MCHC Differential 33.7 pg (28.0-36.0) 04/18/18 06:50 RDW 13.3 % (11.5-20.0) 04/18/18 06:50 Plt Count 245 Th/cmm (150-400) 04/18/18 06:50 MPV 7.5 fl 04/18/18 06:50 Neutrophils % 45.1 % (40.0-80.0) 04/18/18 06:50 Lymphocytes % 40.1 % (20.0-50.0) 04/18/18 06:50 Monocytes % 9.7 % (2.0-10.0) 04/18/18 06:50 Eosinophils % 4.7 % (0.0-5.0) 04/18/18 06:50 Basophils % 0.4 % (0.0-2.0) 04/18/18 06:50 Sodium 141 mEq/L (136-145) 04/18/18 06:50 Potassium 4.1 mEq/L (3.5-5.1) 04/18/18 06:50 Chloride 106 mEq/L (98-107) 04/18/18 06:50 Carbon Dioxide 29.8 mEq/L (21.0-31.0) 04/18/18 06:50 Anion Gap 9.3 (7.0-16.0) 04/18/18 06:50 BUN 17 mg/dL (7-25) 04/18/18 06:50 Creatinine 0.7 mg/dL (0.7-1.3) 04/18/18 06:50 Est GFR ( Amer) > 60.0 ml/min (>90) 04/18/18 06:50 Est GFR (Non-Af Amer) > 60.0 ml/min 04/18/18 06:50 BUN/Creatinine Ratio 24.3 04/18/18 06:50 Glucose 123 mg/dL (70-105) H 04/18/18 06:50 Calcium 9.1 mg/dL (8.6-10.3) 04/18/18 06:50 Total Bilirubin 0.3 mg/dL (0.3-1.0) 04/18/18 06:50 AST 27 U/L (13-39) 04/18/18 06:50 ALT 25 U/L (7-52) 04/18/18 06:50 Alkaline Phosphatase 37 U/L (34-104) 04/18/18 06:50 Total Protein 6.2 gm/dL (6.0-8.3) 04/18/18 06:50 Albumin 3.2 gm/dL (4.2-5.5) L 04/18/18 06:50 Globulin 3.0 gm/dL 04/18/18 06:50 Albumin/Globulin Ratio 1.1 (1.0-1.8) 04/18/18 06:50 Triglycerides 121 mg/dL (<150) 04/17/18 07:00 Cholesterol 101 mg/dL (<200) 04/17/18 07:00 LDL Cholesterol Direct 59 mg/dL (75-193) L 04/17/18 07:00 HDL Cholesterol 28 mg/dL (23-92) 04/17/18 07:00 TSH 1.53 uIU/ml (0.34-5.60) 04/18/18 06:50 Urine Source CLEAN C 04/30/18 13:50 Urine Color YELLOW 04/30/18 13:50 Urine Clarity CLEAR (CLEAR) 04/30/18 13:50 Urine pH 7.5 (4.6 - 8.0) 04/30/18 13:50 Ur Specific [place] 1.020 (1.005-1.030) 04/30/18 13:50 Urine Protein 30 mg/dL (NEGATIVE) H 04/30/18 13:50 Urine Glucose (UA) NEGATIVE mg/dL (NEGATIVE) 04/30/18 13:50 Urine Ketones TRACE mg/dL (NEGATIVE) 04/30/18 13:50 Urine Blood NEGATIVE (NEGATIVE) 04/30/18 13:50 Urine Nitrate NEGATIVE (NEGATIVE) 04/30/18 13:50 Urine Bilirubin NEGATIVE (NEGATIVE) 04/30/18 13:50 Urine Urobilinogen 1.0 E.U./dL (0.2 - 1.0) 04/30/18 13:50 Ur Leukocyte Esterase NEGATIVE (NEGATIVE) 04/30/18 13:50 Urine RBC 0-2 /hpf (0-5) H 04/30/18 13:50 Urine WBC 0-2 /hpf (0-5) 04/30/18 13:50 Ur Epithelial Cells FEW /lpf (FEW) 04/30/18 13:50 Urine Bacteria OCCASIONAL /hpf (NONE SEEN) 04/30/18 13:50 - Physical Exam Vitals and I&O: Vital Signs Temp 97.9 F 05/01/18 06:17 Pulse 76 05/01/18 08:56 Resp 16 05/01/18 07:07 BP 112/58 05/01/18 08:56 Pulse Ox 95 05/01/18 07:07 Intake & Output 04/30/18 05/01/18 05/01/18 18:59 06:59 18:59 Intake Total 900 300 Balance 900 300 Intake: Oral 900 300 Other: # Voids 4 2 # Bowel Movements 1 0 Stool Characteristics Soft Soft Active Medications: Current Medications Acetaminophen (Tylenol) 650 mg PO Q4HR PRN PRN Reason: Mild Pain 1-3/ Temp above 100 Stop: 06/15/18 23:04 Last Admin: 04/26/18 18:08 Dose: 650 mg Al Hydrox/Mg Hydrox/Simethicone (Maalox) 30 ml PO Q4HR PRN PRN Reason: GI DISTRESS Stop: 06/16/18 08:47 Last Admin: 04/26/18 12:45 Dose: 30 ml Albuterol Sulfate (Albuterol 2.5mg/3ml Neb Ud) 2.5 mg HHN Q4HR PRN PRN Reason: Shortness of Breath Stop: 06/15/18 23:04 Last Admin: 05/01/18 07:07 Dose: 2.5 mg Amlodipine Besylate (Norvasc) 5 mg PO DAILY [facility] Stop: 06/16/18 08:59 Last Admin: 05/01/18 08:56 Dose: 5 mg Aspirin (Aspirin Chewable) 81 mg PO DAILY [facility] Stop: 06/16/18 08:59 Last Admin: 05/01/18 08:56 Dose: 81 mg Atorvastatin Calcium (Lipitor) 40 mg PO HS [facility]; Protocol Stop: 06/16/18 20:59 Last Admin: 04/30/18 20:39 Dose: 40 mg Divalproex Sodium (Depakote Dr) 1,000 mg PO BID [facility]; Protocol Stop: 06/20/18 08:59 Last Admin: 05/01/18 08:56 Dose: 1,000 mg Gabapentin (Neurontin) 400 mg PO TID [facility] Stop: 06/16/18 08:59 Last Admin: 05/01/18 08:53 Dose: 400 mg Glipizide (Glucotrol) 10 mg PO BID [facility] Stop: 06/16/18 08:59 Last Admin: 05/01/18 08:57 Dose: 10 mg Magnesium Hydroxide (Milk Of Magnesia) 30 ml PO HS PRN PRN Reason: Constipation Stop: 06/15/18 23:04 Last Admin: 04/28/18 21:23 Dose: 30 ml Metformin HCl (Glucophage) 1,000 mg PO BID [facility] Stop: 06/16/18 08:59 Last Admin: 05/01/18 08:56 Dose: 1,000 mg Miscellaneous (Clinical Monitoring) 1 ea [facility] DAILY PRN PRN Reason: RENAL MONITOR- METFORMIN Stop: 06/16/18 08:37 Nicotine (Nicotine Transdermal System) 14 mg TD DAILY [facility] Stop: 06/16/18 08:59 Last Admin: 04/30/18 09:40 Dose: 14 mg Olanzapine (Zyprexa) 15 mg PO HS [facility]; Protocol Stop: 06/16/18 20:59 Last Admin: 04/30/18 20:40 Dose: 15 mg Olanzapine (Zyprexa) 10 mg PO DAILY [facility]; Protocol Stop: 06/19/18 08:59 Last Admin: 05/01/18 08:53 Dose: 10 mg Paroxetine HCl (Paxil) 20 mg PO DAILY [facility]; Protocol Stop: 06/16/18 08:59 Last Admin: 05/01/18 08:54 Dose: 20 mg Propranolol HCl (Inderal) 5 mg PO BID [facility] Stop: 06/16/18 08:59 Last Admin: 05/01/18 08:55 Dose: 5 mg Tamsulosin HCl (Flomax) 0.4 mg PO DAILY [facility] Stop: 06/16/18 08:59 Last Admin: 05/01/18 08:53 Dose: 0.4 mg Temazepam (Restoril) 15 mg PO HS [facility]; Protocol PRN Reason: Insomnia Stop: 06/15/18 23:16 Last Admin: 04/30/18 21:06 Dose: 15 mg Trazodone HCl (Desyrel) 150 mg PO HS [facility]; Protocol Stop: 06/16/18 20:59 Last Admin: 04/30/18 20:40 Dose: 150 mg General: Alert, No acute distress, Other (Confused) HEENT: Atraumatic Neck: Supple Cardiovascular: Regular rate Lungs: Clear to auscultation Abdomen: Bowel sounds, Soft Extremities: Other (edema) Neurological: Other (Unstable gait) Skin: Other (Warm and dry) Psych/Mental Status: Other (Confused, not oriented) Assessment/Plan - Assessment Assessment: Patient is awake, alert, calm, in no acute distress, continuing been confused. Dx: 5150, schizophrenia, bipolar, DM, HTN, Hx of seizure. - Plan Plan: Patient is follow by Psychiatry, UA shows no UTI, will continue with home meds. Nutritional Asmnt/Malnutr-PDOC - Dietary Evaluation Malnutrition Findings (Please click <Entered> for more info): Nutritional Asmnt/Malnutrition Start: 04/21/18 10: 40 Text: Status: Complete Freq: Protocol: Document 04/21/18 10:40 JULIETTE (Rec: 04/21/18 10:45 JULIETTE HERNANDEZ- [email or web address]) Nutritional Asmnt/Malnutrition Patient General Information Diagnosis psychosis Pertinent Medical Hx/Surgical Hx bipolar, schizophrenia, CAD, HTN, COPd, DM Subjective Information Pt asleep at time of visit, RN stated he does not like to talk Current Diet Order/ Nutrition Support regular Pertinent Medications lipitor, maalox, MOM, glucophage Pertinent Labs 04/19: Na 141, K 4.1, Cl 106, CO2 29.8, BUN 17, Cr 0.7, glucos 123, Ca 9.1 Nutritional Hx/Data Height 1.78 m Height (Calculated Centimeters) 177.8 Current Weight (lbs) 97.069 kg Weight (Calculated Kilograms) 97.1 Weight (Calculated Grams) 14306.8 Body Mass Index (BMI) 30.7 Weight Status Obese GI Symptoms GI Symptoms None Last BM 04/20 x 2 Cultural/Ethnic/Judaism Belief unknown Usual diet at home regular Skin Integrity/Comment: bibi score 21 Current %PO Good (75-100%) Estimated Nutritional Goals BEE in Kcals: Adj wt of IBW Calories/Kcals/Kg 25-30kcals/kg Kcals Calculated 2024-2430kcals/day Protein: Adj wt of IBW Protein g/kg/kg Protein Calculated 81g/day Fluid: ml 2024-2430ml/day (1ml/kcal) Nutritional Problem 1. Problem Problem Obesity related to Etiology decreased nutrient needs as evidenced by Signs/Symptoms: BMI 30.7. Intervention/Recommendation Comments Recommend continuing Regular diet Expected Outcomes/Goals Expected Outcomes/Goals PO intake >75% of meals
[2018-05-01] MEDS: Nicotine 14 mg/24 hr Tdm TD SCH (09:30)
[2018-05-01] MEDS: Magnesium Hydroxide (MOM) 30 mL UDC PO PRN (15:30)
[2018-05-02] MEDS: Aspirin 81mg Chewable Tab PO SCH (08:56)
[2018-05-02] MEDS: Nicotine 14 mg/24 hr Tdm TD SCH (09:02)
--- NOTE | 2018-05-02 10:51 | General Progress Note ---
Subjective - Review of Systems Service Date: 05/02/18 Subjective: Patient is confused, not oriented. Objective - Results Result Diagrams: 04/18/18 06:50 04/18/18 06:50 Recent Labs: Laboratory Last Values WBC 6.9 Th/cmm (4.8-10.8) 04/18/18 06:50 RBC 4.52 Mil/cmm (4.30-5.70) 04/18/18 06:50 Hgb 14.2 gm/dL (12-16) 04/18/18 06:50 Hct 42.2 % (41.0-60) 04/18/18 06:50 MCV 93.4 fl (80-99) 04/18/18 06:50 MCH 31.4 pg (26.0-30.0) H 04/18/18 06:50 MCHC Differential 33.7 pg (28.0-36.0) 04/18/18 06:50 RDW 13.3 % (11.5-20.0) 04/18/18 06:50 Plt Count 245 Th/cmm (150-400) 04/18/18 06:50 MPV 7.5 fl 04/18/18 06:50 Neutrophils % 45.1 % (40.0-80.0) 04/18/18 06:50 Lymphocytes % 40.1 % (20.0-50.0) 04/18/18 06:50 Monocytes % 9.7 % (2.0-10.0) 04/18/18 06:50 Eosinophils % 4.7 % (0.0-5.0) 04/18/18 06:50 Basophils % 0.4 % (0.0-2.0) 04/18/18 06:50 Sodium 141 mEq/L (136-145) 04/18/18 06:50 Potassium 4.1 mEq/L (3.5-5.1) 04/18/18 06:50 Chloride 106 mEq/L (98-107) 04/18/18 06:50 Carbon Dioxide 29.8 mEq/L (21.0-31.0) 04/18/18 06:50 Anion Gap 9.3 (7.0-16.0) 04/18/18 06:50 BUN 17 mg/dL (7-25) 04/18/18 06:50 Creatinine 0.7 mg/dL (0.7-1.3) 04/18/18 06:50 Est GFR ( Amer) > 60.0 ml/min (>90) 04/18/18 06:50 Est GFR (Non-Af Amer) > 60.0 ml/min 04/18/18 06:50 BUN/Creatinine Ratio 24.3 04/18/18 06:50 Glucose 123 mg/dL (70-105) H 04/18/18 06:50 Calcium 9.1 mg/dL (8.6-10.3) 04/18/18 06:50 Total Bilirubin 0.3 mg/dL (0.3-1.0) 04/18/18 06:50 AST 27 U/L (13-39) 04/18/18 06:50 ALT 25 U/L (7-52) 04/18/18 06:50 Alkaline Phosphatase 37 U/L (34-104) 04/18/18 06:50 Total Protein 6.2 gm/dL (6.0-8.3) 04/18/18 06:50 Albumin 3.2 gm/dL (4.2-5.5) L 04/18/18 06:50 Globulin 3.0 gm/dL 04/18/18 06:50 Albumin/Globulin Ratio 1.1 (1.0-1.8) 04/18/18 06:50 Triglycerides 121 mg/dL (<150) 04/17/18 07:00 Cholesterol 101 mg/dL (<200) 04/17/18 07:00 LDL Cholesterol Direct 59 mg/dL (75-193) L 04/17/18 07:00 HDL Cholesterol 28 mg/dL (23-92) 04/17/18 07:00 TSH 1.53 uIU/ml (0.34-5.60) 04/18/18 06:50 Urine Source CLEAN C 04/30/18 13:50 Urine Color YELLOW 04/30/18 13:50 Urine Clarity CLEAR (CLEAR) 04/30/18 13:50 Urine pH 7.5 (4.6 - 8.0) 04/30/18 13:50 Ur Specific [place] 1.020 (1.005-1.030) 04/30/18 13:50 Urine Protein 30 mg/dL (NEGATIVE) H 04/30/18 13:50 Urine Glucose (UA) NEGATIVE mg/dL (NEGATIVE) 04/30/18 13:50 Urine Ketones TRACE mg/dL (NEGATIVE) 04/30/18 13:50 Urine Blood NEGATIVE (NEGATIVE) 04/30/18 13:50 Urine Nitrate NEGATIVE (NEGATIVE) 04/30/18 13:50 Urine Bilirubin NEGATIVE (NEGATIVE) 04/30/18 13:50 Urine Urobilinogen 1.0 E.U./dL (0.2 - 1.0) 04/30/18 13:50 Ur Leukocyte Esterase NEGATIVE (NEGATIVE) 04/30/18 13:50 Urine RBC 0-2 /hpf (0-5) H 04/30/18 13:50 Urine WBC 0-2 /hpf (0-5) 04/30/18 13:50 Ur Epithelial Cells FEW /lpf (FEW) 04/30/18 13:50 Urine Bacteria OCCASIONAL /hpf (NONE SEEN) 04/30/18 13:50 - Physical Exam Vitals and I&O: Vital Signs Temp 97.9 F 05/02/18 06:11 Pulse 80 05/02/18 10:43 Resp 16 05/02/18 10:43 BP 119/75 05/02/18 09:00 Pulse Ox 96 05/02/18 10:43 Intake & Output 05/01/18 05/02/18 05/02/18 18:59 06:59 18:59 Intake Total 1200 480 Balance 1200 480 Intake: Oral 1200 480 Other: # Voids 4 3 # Bowel Movements 1 0 Stool Characteristics Soft Soft Soft Active Medications: Current Medications Acetaminophen (Tylenol) 650 mg PO Q4HR PRN PRN Reason: Mild Pain 1-3/ Temp above 100 Stop: 06/15/18 23:04 Last Admin: 04/26/18 18:08 Dose: 650 mg Al Hydrox/Mg Hydrox/Simethicone (Maalox) 30 ml PO Q4HR PRN PRN Reason: GI DISTRESS Stop: 06/16/18 08:47 Last Admin: 04/26/18 12:45 Dose: 30 ml Albuterol Sulfate (Albuterol 2.5mg/3ml Neb Ud) 2.5 mg HHN Q4HR PRN PRN Reason: Shortness of Breath Stop: 06/15/18 23:04 Last Admin: 05/01/18 07:07 Dose: 2.5 mg Amlodipine Besylate (Norvasc) 5 mg PO DAILY [facility] Stop: 06/16/18 08:59 Last Admin: 05/02/18 08:59 Dose: 5 mg Aspirin (Aspirin Chewable) 81 mg PO DAILY [facility] Stop: 06/16/18 08:59 Last Admin: 05/02/18 08:56 Dose: 81 mg Atorvastatin Calcium (Lipitor) 40 mg PO HS [facility]; Protocol Stop: 06/16/18 20:59 Last Admin: 05/01/18 21:08 Dose: 40 mg Divalproex Sodium (Depakote Dr) 1,000 mg PO BID [facility]; Protocol Stop: 06/20/18 08:59 Last Admin: 05/02/18 08:58 Dose: 1,000 mg Gabapentin (Neurontin) 400 mg PO TID [facility] Stop: 06/16/18 08:59 Last Admin: 05/02/18 08:58 Dose: 400 mg Glipizide (Glucotrol) 10 mg PO BID [facility] Stop: 06/16/18 08:59 Last Admin: 05/02/18 08:55 Dose: 10 mg Magnesium Hydroxide (Milk Of Magnesia) 30 ml PO HS PRN PRN Reason: Constipation Stop: 06/15/18 23:04 Last Admin: 05/01/18 15:30 Dose: 30 ml Metformin HCl (Glucophage) 1,000 mg PO BID [facility] Stop: 06/16/18 08:59 Last Admin: 05/02/18 08:57 Dose: 1,000 mg Miscellaneous (Clinical Monitoring) 1 ea MC DAILY PRN PRN Reason: RENAL MONITOR- METFORMIN Stop: 06/16/18 08:37 Nicotine (Nicotine Transdermal System) 14 mg TD DAILY [facility] Stop: 06/16/18 08:59 Last Admin: 05/02/18 09:02 Dose: 14 mg Olanzapine (Zyprexa) 15 mg PO HS [facility]; Protocol Stop: 06/16/18 20:59 Last Admin: 05/01/18 21:08 Dose: 15 mg Olanzapine (Zyprexa) 10 mg PO DAILY [facility]; Protocol Stop: 06/19/18 08:59 Last Admin: 05/02/18 08:58 Dose: 10 mg Paroxetine HCl (Paxil) 20 mg PO DAILY [facility]; Protocol Stop: 06/16/18 08:59 Last Admin: 12/05/18 08:55 Dose: 20 mg Propranolol HCl (Inderal) 5 mg PO BID [facility] Stop: 06/16/18 08:59 Last Admin: 05/02/18 09:00 Dose: 5 mg Tamsulosin HCl (Flomax) 0.4 mg PO DAILY [facility] Stop: 06/16/18 08:59 Last Admin: 05/02/18 08:56 Dose: 0.4 mg Temazepam (Restoril) 15 mg PO HS PRN; Protocol PRN Reason: Insomnia Stop: 06/15/18 23:16 Last Admin: 05/01/18 22:05 Dose: 15 mg Trazodone HCl (Desyrel) 150 mg PO HS [facility]; Protocol Stop: 06/16/18 20:59 Last Admin: 05/01/18 21:08 Dose: 150 mg General: Alert, No acute distress, Other (Confused) HEENT: Atraumatic Neck: Supple Cardiovascular: Regular rate Lungs: Clear to auscultation Abdomen: Bowel sounds, Soft Extremities: Other (edema) Neurological: Other (Unstable gait) Skin: Other (Warm and dry) Psych/Mental Status: Other (Confused, not oriented) Assessment/Plan - Assessment Assessment: Patient is awake, alert, calm, in no acute distress, continuing been confused. Dx: 5150, schizophrenia, bipolar, DM, HTN, Hx of seizure. - Plan Plan: Patient is follow by Psychiatry, UA shows no UTI, will continue with home meds. Nutritional Asmnt/Malnutr-PDOC - Dietary Evaluation Malnutrition Findings (Please click <Entered> for more info): Nutritional Asmnt/Malnutrition Start: 04/21/18 10: 40 Text: Status: Complete Freq: Protocol: Document 04/21/18 10:40 JULIETTE (Rec: 04/21/18 10:45 JULIETTE HERNANDEZ- [id number]) Nutritional Asmnt/Malnutrition Patient General Information Diagnosis psychosis Pertinent Medical Hx/Surgical Hx bipolar, schizophrenia, CAD, HTN, COPd, DM Subjective Information Pt asleep at time of visit, RN stated he does not like to talk Current Diet Order/ Nutrition Support regular Pertinent Medications lipitor, maalox, MOM, glucophage Pertinent Labs 04/19: Na 141, K 4.1, Cl 106, CO2 29.8, BUN 17, Cr 0.7, glucos 123, Ca 9.1 Nutritional Hx/Data Height 1.78 m Height (Calculated Centimeters) 177.8 Current Weight (lbs) 97.069 kg Weight (Calculated Kilograms) 97.1 Weight (Calculated Grams) 72876.8 Body Mass Index (BMI) 30.7 Weight Status Obese GI Symptoms GI Symptoms None Last BM 04/20 x 2 Cultural/Ethnic/Catholic Belief unknown Usual diet at home regular Skin Integrity/Comment: bibi score 21 Current %PO Good (75-100%) Estimated Nutritional Goals BEE in Kcals: Adj wt of IBW Calories/Kcals/Kg 25-30kcals/kg Kcals Calculated 2024-2430kcals/day Protein: Adj wt of IBW Protein g/kg/kg Protein Calculated 81g/day Fluid: ml 2024-2430ml/day (1ml/kcal) Nutritional Problem 1. Problem Problem Obesity related to Etiology decreased nutrient needs as evidenced by Signs/Symptoms: BMI 30.7. Intervention/Recommendation Comments Recommend continuing Regular diet Expected Outcomes/Goals Expected Outcomes/Goals PO intake >75% of meals
[2018-05-02] MEDS: Albuterol Nebulizer 2.5mg/3mL HHN PRN (19:26)
--- NOTE | 2018-05-03 08:50 | General Progress Note ---
Subjective - Review of Systems Service Date: 05/03/18 Subjective: Patient is confused, not oriented. Objective - Results Result Diagrams: 04/18/18 06:50 04/18/18 06:50 Recent Labs: Laboratory Last Values WBC 6.9 Th/cmm (4.8-10.8) 04/18/18 06:50 RBC 4.52 Mil/cmm (4.30-5.70) 04/18/18 06:50 Hgb 14.2 gm/dL (12-16) 04/18/18 06:50 Hct 42.2 % (41.0-60) 04/18/18 06:50 MCV 93.4 fl (80-99) 04/18/18 06:50 MCH 31.4 pg (26.0-30.0) H 04/18/18 06:50 MCHC Differential 33.7 pg (28.0-36.0) 04/18/18 06:50 RDW 13.3 % (11.5-20.0) 04/18/18 06:50 Plt Count 245 Th/cmm (150-400) 04/18/18 06:50 MPV 7.5 fl 04/18/18 06:50 Neutrophils % 45.1 % (40.0-80.0) 04/18/18 06:50 Lymphocytes % 40.1 % (20.0-50.0) 04/18/18 06:50 Monocytes % 9.7 % (2.0-10.0) 04/18/18 06:50 Eosinophils % 4.7 % (0.0-5.0) 04/18/18 06:50 Basophils % 0.4 % (0.0-2.0) 04/18/18 06:50 Sodium 141 mEq/L (136-145) 04/18/18 06:50 Potassium 4.1 mEq/L (3.5-5.1) 04/18/18 06:50 Chloride 106 mEq/L (98-107) 04/18/18 06:50 Carbon Dioxide 29.8 mEq/L (21.0-31.0) 04/18/18 06:50 Anion Gap 9.3 (7.0-16.0) 04/18/18 06:50 BUN 17 mg/dL (7-25) 04/18/18 06:50 Creatinine 0.7 mg/dL (0.7-1.3) 04/18/18 06:50 Est GFR ( Amer) > 60.0 ml/min (>90) 04/18/18 06:50 Est GFR (Non-Af Amer) > 60.0 ml/min 04/18/18 06:50 BUN/Creatinine Ratio 24.3 04/18/18 06:50 Glucose 123 mg/dL (70-105) H 04/18/18 06:50 Calcium 9.1 mg/dL (8.6-10.3) 04/18/18 06:50 Total Bilirubin 0.3 mg/dL (0.3-1.0) 04/18/18 06:50 AST 27 U/L (13-39) 04/18/18 06:50 ALT 25 U/L (7-52) 04/18/18 06:50 Alkaline Phosphatase 37 U/L (34-104) 04/18/18 06:50 Total Protein 6.2 gm/dL (6.0-8.3) 04/18/18 06:50 Albumin 3.2 gm/dL (4.2-5.5) L 04/18/18 06:50 Globulin 3.0 gm/dL 04/18/18 06:50 Albumin/Globulin Ratio 1.1 (1.0-1.8) 04/18/18 06:50 Triglycerides 121 mg/dL (<150) 04/17/18 07:00 Cholesterol 101 mg/dL (<200) 04/17/18 07:00 LDL Cholesterol Direct 59 mg/dL (75-193) L 04/17/18 07:00 HDL Cholesterol 28 mg/dL (23-92) 04/17/18 07:00 TSH 1.53 uIU/ml (0.34-5.60) 04/18/18 06:50 Urine Source CLEAN C 04/30/18 13:50 Urine Color YELLOW 04/30/18 13:50 Urine Clarity CLEAR (CLEAR) 04/30/18 13:50 Urine pH 7.5 (4.6 - 8.0) 04/30/18 13:50 Ur Specific [place] 1.020 (1.005-1.030) 04/30/18 13:50 Urine Protein 30 mg/dL (NEGATIVE) H 04/30/18 13:50 Urine Glucose (UA) NEGATIVE mg/dL (NEGATIVE) 04/30/18 13:50 Urine Ketones TRACE mg/dL (NEGATIVE) 04/30/18 13:50 Urine Blood NEGATIVE (NEGATIVE) 04/30/18 13:50 Urine Nitrate NEGATIVE (NEGATIVE) 04/30/18 13:50 Urine Bilirubin NEGATIVE (NEGATIVE) 04/30/18 13:50 Urine Urobilinogen 1.0 E.U./dL (0.2 - 1.0) 04/30/18 13:50 Ur Leukocyte Esterase NEGATIVE (NEGATIVE) 04/30/18 13:50 Urine RBC 0-2 /hpf (0-5) H 04/30/18 13:50 Urine WBC 0-2 /hpf (0-5) 04/30/18 13:50 Ur Epithelial Cells FEW /lpf (FEW) 04/30/18 13:50 Urine Bacteria OCCASIONAL /hpf (NONE SEEN) 04/30/18 13:50 - Physical Exam Vitals and I&O: Vital Signs Temp 97.6 F 05/03/18 06:34 Pulse 61 05/03/18 06:34 Resp 20 05/03/18 06:34 BP 124/78 05/03/18 06:34 Pulse Ox 95 05/03/18 06:34 Intake & Output 05/02/18 05/03/18 05/03/18 18:59 06:59 18:59 Intake Total 1600 120 Balance 1600 120 Intake: Oral 1600 120 Other: # Voids 4 3 # Bowel Movements 1 Stool Characteristics Soft Soft Soft Active Medications: Current Medications Acetaminophen (Tylenol) 650 mg PO Q4HR PRN PRN Reason: Mild Pain 1-3/ Temp above 100 Stop: 06/15/18 23:04 Last Admin: 04/26/18 18:08 Dose: 650 mg Al Hydrox/Mg Hydrox/Simethicone (Maalox) 30 ml PO Q4HR PRN PRN Reason: GI DISTRESS Stop: 06/16/18 08:47 Last Admin: 04/26/18 12:45 Dose: 30 ml Albuterol Sulfate (Albuterol 2.5mg/3ml Neb Ud) 2.5 mg HHN Q4HR PRN PRN Reason: Shortness of Breath Stop: 06/15/18 23:04 Last Admin: 05/02/18 19:26 Dose: 2.5 mg Amlodipine Besylate (Norvasc) 5 mg PO DAILY [facility] Stop: 06/16/18 08:59 Last Admin: 05/02/18 08:59 Dose: 5 mg Aspirin (Aspirin Chewable) 81 mg PO DAILY [facility] Stop: 06/16/18 08:59 Last Admin: 05/02/18 08:56 Dose: 81 mg Atorvastatin Calcium (Lipitor) 40 mg PO HS [facility]; Protocol Stop: 06/16/18 20:59 Last Admin: 05/02/18 20:35 Dose: 40 mg Divalproex Sodium (Depakote Dr) 1,000 mg PO BID [facility]; Protocol Stop: 06/20/18 08:59 Last Admin: 05/02/18 16:51 Dose: 1,000 mg Gabapentin (Neurontin) 400 mg PO TID [facility] Stop: 06/16/18 08:59 Last Admin: 05/02/18 20:35 Dose: 400 mg Glipizide (Glucotrol) 10 mg PO BID [facility] Stop: 06/16/18 08:59 Last Admin: 05/02/18 16:50 Dose: 10 mg Magnesium Hydroxide (Milk Of Magnesia) 30 ml PO HS PRN PRN Reason: Constipation Stop: 06/15/18 23:04 Last Admin: 05/01/18 15:30 Dose: 30 ml Metformin HCl (Glucophage) 1,000 mg PO BID [facility] Stop: 06/16/18 08:59 Last Admin: 05/02/18 16:51 Dose: 1,000 mg Miscellaneous (Clinical Monitoring) 1 ea MC DAILY PRN PRN Reason: RENAL MONITOR- METFORMIN Stop: 06/16/18 08:37 Nicotine (Nicotine Transdermal System) 14 mg TD DAILY [facility] Stop: 06/16/18 08:59 Last Admin: 05/02/18 09:02 Dose: 14 mg Olanzapine (Zyprexa) 15 mg PO HS [facility]; Protocol Stop: 06/16/18 20:59 Last Admin: 05/02/18 20:35 Dose: 15 mg Olanzapine (Zyprexa) 10 mg PO DAILY [facility]; Protocol Stop: 06/19/18 08:59 Last Admin: 05/02/18 08:58 Dose: 10 mg Paroxetine HCl (Paxil) 20 mg PO DAILY [facility]; Protocol Stop: 06/16/18 08:59 Last Admin: 05/02/18 08:55 Dose: 20 mg Propranolol HCl (Inderal) 5 mg PO BID [facility] Stop: 06/16/18 08:59 Last Admin: 05/02/18 16:50 Dose: 5 mg Tamsulosin HCl (Flomax) 0.4 mg PO DAILY [facility] Stop: 06/16/18 08:59 Last Admin: 05/02/18 08:56 Dose: 0.4 mg Temazepam (Restoril) 15 mg PO HS PRN; Protocol PRN Reason: Insomnia Stop: 06/15/18 23:16 Last Admin: 05/02/18 20:36 Dose: 15 mg Trazodone HCl (Desyrel) 150 mg PO HS [facility]; Protocol Stop: 06/16/18 20:59 Last Admin: 05/02/18 20:35 Dose: 150 mg General: Alert, No acute distress, Other (Confused) HEENT: Atraumatic Neck: Supple Cardiovascular: Regular rate Lungs: Clear to auscultation Abdomen: Bowel sounds, Soft Extremities: Other (edema) Neurological: Other (Unstable gait) Skin: Other (Warm and dry) Psych/Mental Status: Other (Confused, not oriented) Assessment/Plan - Assessment Assessment: Patient is awake, alert, calm, in no acute distress, continuing been confused. Dx: 5150, schizophrenia, bipolar, DM, HTN, Hx of seizure. - Plan Plan: Patient is follow by Psychiatry, UA shows no UTI, will continue with home meds. Nutritional Asmnt/Malnutr-PDOC - Dietary Evaluation Malnutrition Findings (Please click <Entered> for more info): Nutritional Asmnt/Malnutrition Start: 04/21/18 10: 40 Text: Status: Complete Freq: Protocol: Document 04/21/18 10:40 JULIETTE (Rec: 04/21/18 10:45 JULIETTE HERNANDEZ- [id number]) Nutritional Asmnt/Malnutrition Patient General Information Diagnosis psychosis Pertinent Medical Hx/Surgical Hx bipolar, schizophrenia, CAD, HTN, COPd, DM Subjective Information Pt asleep at time of visit, RN stated he does not like to talk Current Diet Order/ Nutrition Support regular Pertinent Medications lipitor, maalox, MOM, glucophage Pertinent Labs 04/19: Na 141, K 4.1, Cl 106, CO2 29.8, BUN 17, Cr 0.7, glucos 123, Ca 9.1 Nutritional Hx/Data Height 1.78 m Height (Calculated Centimeters) 177.8 Current Weight (lbs) 97.069 kg Weight (Calculated Kilograms) 97.1 Weight (Calculated Grams) 88594.8 Body Mass Index (BMI) 30.7 Weight Status Obese GI Symptoms GI Symptoms None Last BM 04/20 x 2 Cultural/Ethnic/Denominational Belief unknown Usual diet at home regular Skin Integrity/Comment: bibi score 21 Current %PO Good (75-100%) Estimated Nutritional Goals BEE in Kcals: Adj wt of IBW Calories/Kcals/Kg 25-30kcals/kg Kcals Calculated 2024-2430kcals/day Protein: Adj wt of IBW Protein g/kg/kg Protein Calculated 81g/day Fluid: ml 2024-2430ml/day (1ml/kcal) Nutritional Problem 1. Problem Problem Obesity related to Etiology decreased nutrient needs as evidenced by Signs/Symptoms: BMI 30.7. Intervention/Recommendation Comments Recommend continuing Regular diet Expected Outcomes/Goals Expected Outcomes/Goals PO intake >75% of meals
[2018-05-03] MEDS: Aspirin 81mg Chewable Tab PO SCH (09:06)
[2018-05-03] MEDS: Nicotine 14 mg/24 hr Tdm TD SCH (09:30)
--- NOTE | 2018-05-03 14:23 | Progress Notes ---
DATE: Chart reviewed and the patient interviewed. Also discussed the patient's condition with the staff and reviewed records and labs. The patient continues to be calm and is cooperative with his treatment. The patient also is not agitated and denies any thoughts of suicide or homicide. Also no major behavioral problems with the patient. He also is compliant with taking his medications with no side effects of medications. According to pillowcase sewer, the patient has no Medicare days and has difficulty finding a place for the patient. At the same time, the patient currently does not meet criteria for inpatient hospitalization except that he needs placement. At the same time, we will continue trying to discharge the patient and working on discharge plans. JOB# [id number]
[2018-05-03] MEDS: Albuterol Nebulizer 2.5mg/3mL HHN PRN ×2 (14:49→22:00)
--- NOTE | 2018-05-03 18:22 | Progress Notes ---
DATE: 05/03/2018 Case was discussed with staff of the patient, reviewed records. Finally his conservator agreed to have a family meeting. He is a well-known case to me as I have seen him before covering for Dr. Jensen, so working on discharge plan. He is no longer psychotic. He is sleeping well, eating well. He is denying any current intent to harm himself or anybody. He has an appointment tomorrow for his conservatorship hearing and he would like to be there. He is not acting in anyway dangerous as according to the staff, no side effects with the medication, no sedation, no nausea, no extrapyramidal symptoms. His lab work showed CBC with high MCH, the rest within normal range. Chemistry panel with high blood sugar, the rest within normal range. TSH within normal range. A urinalysis showed proteinuria and white cells. The patient will be given copies of lab work to take primary care physician. I will continue with the patient in group therapy, milieu therapy, adjust the medication as needed. JOB# [id number]
--- NOTE | 2018-05-04 08:57 | General Progress Note ---
Subjective - Review of Systems Service Date: 05/04/18 Subjective: Patient is confused, not oriented. Objective - Results Result Diagrams: 04/18/18 06:50 04/18/18 06:50 Recent Labs: Laboratory Last Values WBC 6.9 Th/cmm (4.8-10.8) 04/18/18 06:50 RBC 4.52 Mil/cmm (4.30-5.70) 04/18/18 06:50 Hgb 14.2 gm/dL (12-16) 04/18/18 06:50 Hct 42.2 % (41.0-60) 04/18/18 06:50 MCV 93.4 fl (80-99) 04/18/18 06:50 MCH 31.4 pg (26.0-30.0) H 04/18/18 06:50 MCHC Differential 33.7 pg (28.0-36.0) 04/18/18 06:50 RDW 13.3 % (11.5-20.0) 04/18/18 06:50 Plt Count 245 Th/cmm (150-400) 04/18/18 06:50 MPV 7.5 fl 04/18/18 06:50 Neutrophils % 45.1 % (40.0-80.0) 04/18/18 06:50 Lymphocytes % 40.1 % (20.0-50.0) 04/18/18 06:50 Monocytes % 9.7 % (2.0-10.0) 04/18/18 06:50 Eosinophils % 4.7 % (0.0-5.0) 04/18/18 06:50 Basophils % 0.4 % (0.0-2.0) 04/18/18 06:50 Sodium 141 mEq/L (136-145) 04/18/18 06:50 Potassium 4.1 mEq/L (3.5-5.1) 04/18/18 06:50 Chloride 106 mEq/L (98-107) 04/18/18 06:50 Carbon Dioxide 29.8 mEq/L (21.0-31.0) 04/18/18 06:50 Anion Gap 9.3 (7.0-16.0) 04/18/18 06:50 BUN 17 mg/dL (7-25) 04/18/18 06:50 Creatinine 0.7 mg/dL (0.7-1.3) 04/18/18 06:50 Est GFR ( Amer) > 60.0 ml/min (>90) 04/18/18 06:50 Est GFR (Non-Af Amer) > 60.0 ml/min 04/18/18 06:50 BUN/Creatinine Ratio 24.3 04/18/18 06:50 Glucose 123 mg/dL (70-105) H 04/18/18 06:50 Calcium 9.1 mg/dL (8.6-10.3) 04/18/18 06:50 Total Bilirubin 0.3 mg/dL (0.3-1.0) 04/18/18 06:50 AST 27 U/L (13-39) 04/18/18 06:50 ALT 25 U/L (7-52) 04/18/18 06:50 Alkaline Phosphatase 37 U/L (34-104) 04/18/18 06:50 Total Protein 6.2 gm/dL (6.0-8.3) 04/18/18 06:50 Albumin 3.2 gm/dL (4.2-5.5) L 04/18/18 06:50 Globulin 3.0 gm/dL 04/18/18 06:50 Albumin/Globulin Ratio 1.1 (1.0-1.8) 04/18/18 06:50 Triglycerides 121 mg/dL (<150) 04/17/18 07:00 Cholesterol 101 mg/dL (<200) 04/17/18 07:00 LDL Cholesterol Direct 59 mg/dL (75-193) L 04/17/18 07:00 HDL Cholesterol 28 mg/dL (23-92) 04/17/18 07:00 TSH 1.53 uIU/ml (0.34-5.60) 04/18/18 06:50 Urine Source CLEAN C 04/30/18 13:50 Urine Color YELLOW 04/30/18 13:50 Urine Clarity CLEAR (CLEAR) 04/30/18 13:50 Urine pH 7.5 (4.6 - 8.0) 04/30/18 13:50 Ur Specific [place] 1.020 (1.005-1.030) 04/30/18 13:50 Urine Protein 30 mg/dL (NEGATIVE) H 04/30/18 13:50 Urine Glucose (UA) NEGATIVE mg/dL (NEGATIVE) 04/30/18 13:50 Urine Ketones TRACE mg/dL (NEGATIVE) 04/30/18 13:50 Urine Blood NEGATIVE (NEGATIVE) 04/30/18 13:50 Urine Nitrate NEGATIVE (NEGATIVE) 04/30/18 13:50 Urine Bilirubin NEGATIVE (NEGATIVE) 04/30/18 13:50 Urine Urobilinogen 1.0 E.U./dL (0.2 - 1.0) 04/30/18 13:50 Ur Leukocyte Esterase NEGATIVE (NEGATIVE) 04/30/18 13:50 Urine RBC 0-2 /hpf (0-5) H 04/30/18 13:50 Urine WBC 0-2 /hpf (0-5) 04/30/18 13:50 Ur Epithelial Cells FEW /lpf (FEW) 04/30/18 13:50 Urine Bacteria OCCASIONAL /hpf (NONE SEEN) 04/30/18 13:50 - Physical Exam Vitals and I&O: Vital Signs Temp 97.7 F 05/04/18 06:58 Pulse 68 05/04/18 06:58 Resp 19 05/04/18 06:58 BP 104/72 05/04/18 06:58 Pulse Ox 96 05/04/18 06:58 Intake & Output 05/03/18 05/04/18 05/04/18 18:59 06:59 18:59 Intake Total 1100 120 Balance 1100 120 Intake: Oral 1100 120 Other: # Voids 4 3 # Bowel Movements 0 Stool Characteristics Soft Soft Soft Active Medications: Current Medications Acetaminophen (Tylenol) 650 mg PO Q4HR PRN PRN Reason: Mild Pain 1-3/ Temp above 100 Stop: 06/15/18 23:04 Last Admin: 04/26/18 18:08 Dose: 650 mg Al Hydrox/Mg Hydrox/Simethicone (Maalox) 30 ml PO Q4HR PRN PRN Reason: GI DISTRESS Stop: 06/16/18 08:47 Last Admin: 04/26/18 12:45 Dose: 30 ml Albuterol Sulfate (Albuterol 2.5mg/3ml Neb Ud) 2.5 mg HHN Q4HR PRN PRN Reason: Shortness of Breath Stop: 06/15/18 23:04 Last Admin: 05/03/18 22:00 Dose: 2.5 mg Amlodipine Besylate (Norvasc) 5 mg PO DAILY [facility] Stop: 06/16/18 08:59 Last Admin: 05/03/18 09:07 Dose: 5 mg Aspirin (Aspirin Chewable) 81 mg PO DAILY [facility] Stop: 06/16/18 08:59 Last Admin: 05/03/18 09:06 Dose: 81 mg Atorvastatin Calcium (Lipitor) 40 mg PO HS [facility]; Protocol Stop: 06/16/18 20:59 Last Admin: 05/03/18 20:16 Dose: 40 mg Divalproex Sodium (Depakote Dr) 1,000 mg PO BID [facility]; Protocol Stop: 06/20/18 08:59 Last Admin: 05/03/18 16:32 Dose: 1,000 mg Gabapentin (Neurontin) 400 mg PO TID [facility] Stop: 06/16/18 08:59 Last Admin: 05/03/18 20:16 Dose: 400 mg Glipizide (Glucotrol) 10 mg PO BID [facility] Stop: 06/16/18 08:59 Last Admin: 05/03/18 16:32 Dose: 10 mg Magnesium Hydroxide (Milk Of Magnesia) 30 ml PO HS PRN PRN Reason: Constipation Stop: 06/15/18 23:04 Last Admin: 05/01/18 15:30 Dose: 30 ml Metformin HCl (Glucophage) 1,000 mg PO BID [facility] Stop: 06/16/18 08:59 Last Admin: 05/03/18 16:32 Dose: 1,000 mg Miscellaneous (Clinical Monitoring) 1 ea MC DAILY PRN PRN Reason: RENAL MONITOR- METFORMIN Stop: 06/16/18 08:37 Nicotine (Nicotine Transdermal System) 14 mg TD DAILY [facility] Stop: 06/16/18 08:59 Last Admin: 05/03/18 09:30 Dose: Not Given Olanzapine (Zyprexa) 15 mg PO HS [facility]; Protocol Stop: 06/16/18 20:59 Last Admin: 05/03/18 20:16 Dose: 15 mg Olanzapine (Zyprexa) 10 mg PO DAILY [facility]; Protocol Stop: 06/19/18 08:59 Last Admin: 05/03/18 09:07 Dose: 10 mg Paroxetine HCl (Paxil) 20 mg PO DAILY [facility]; Protocol Stop: 06/16/18 08:59 Last Admin: 05/03/18 09:07 Dose: 20 mg Propranolol HCl (Inderal) 5 mg PO BID [facility] Stop: 06/16/18 08:59 Last Admin: 05/03/18 16:31 Dose: 5 mg Tamsulosin HCl (Flomax) 0.4 mg PO DAILY [facility] Stop: 06/16/18 08:59 Last Admin: 05/03/18 09:05 Dose: 0.4 mg Temazepam (Restoril) 15 mg PO HS PRN; Protocol PRN Reason: Insomnia Stop: 06/15/18 23:16 Last Admin: 05/03/18 21:15 Dose: 15 mg Trazodone HCl (Desyrel) 150 mg PO HS [facility]; Protocol Stop: 06/16/18 20:59 Last Admin: 05/03/18 20:16 Dose: 150 mg General: Alert, No acute distress, Other (Confused) HEENT: Atraumatic Neck: Supple Cardiovascular: Regular rate Lungs: Clear to auscultation Abdomen: Bowel sounds, Soft Extremities: Other (edema) Neurological: Other (Unstable gait) Skin: Other (Warm and dry) Psych/Mental Status: Other (Confused, not oriented) Assessment/Plan - Assessment Assessment: Patient is awake, alert, calm, in no acute distress, continuing been confused. Dx: 5150, schizophrenia, bipolar, DM, HTN, Hx of seizure. - Plan Plan: Patient is follow by Psychiatry, UA shows no UTI, will continue with home meds. Nutritional Asmnt/Malnutr-PDOC - Dietary Evaluation Malnutrition Findings (Please click <Entered> for more info): Nutritional Asmnt/Malnutrition Start: 04/21/18 10: 40 Text: Status: Complete Freq: Protocol: Document 04/21/18 10:40 JULIETTE (Rec: 04/21/18 10:45 JULIETTE HERNANDEZ- FNS1) Nutritional Asmnt/Malnutrition Patient General Information Diagnosis psychosis Pertinent Medical Hx/Surgical Hx bipolar, schizophrenia, CAD, HTN, COPd, DM Subjective Information Pt asleep at time of visit, RN stated he does not like to talk Current Diet Order/ Nutrition Support regular Pertinent Medications lipitor, maalox, MOM, glucophage Pertinent Labs 04/19: Na 141, K 4.1, Cl 106, CO2 29.8, BUN 17, Cr 0.7, glucos 123, Ca 9.1 Nutritional Hx/Data Height 1.78 m Height (Calculated Centimeters) 177.8 Current Weight (lbs) 97.069 kg Weight (Calculated Kilograms) 97.1 Weight (Calculated Grams) 61699.8 Body Mass Index (BMI) 30.7 Weight Status Obese GI Symptoms GI Symptoms None Last BM 04/20 x 2 Cultural/Ethnic/[employer] Belief unknown Usual diet at home regular Skin Integrity/Comment: bibi score 21 Current %PO Good (75-100%) Estimated Nutritional Goals BEE in Kcals: Adj wt of IBW Calories/Kcals/Kg 25-30kcals/kg Kcals Calculated 2024-2430kcals/day Protein: Adj wt of IBW Protein g/kg/kg Protein Calculated 81g/day Fluid: ml 2024-2430ml/day (1ml/kcal) Nutritional Problem 1. Problem Problem Obesity related to Etiology decreased nutrient needs as evidenced by Signs/Symptoms: BMI 30.7. Intervention/Recommendation Comments Recommend continuing Regular diet Expected Outcomes/Goals Expected Outcomes/Goals PO intake >75% of meals
[2018-05-04] MEDS: Aspirin 81mg Chewable Tab PO SCH (08:58)
[2018-05-04] MEDS: Nicotine 14 mg/24 hr Tdm TD SCH (09:01)
[2018-05-04] MEDS: Albuterol Nebulizer 2.5mg/3mL HHN PRN (19:14)
--- NOTE | 2018-05-05 00:33 | Progress Notes ---
DATE: 05/04/2018 SUBJECTIVE: Case was discussed with staff of the patient, reviewed records. The patient apparently was supposed to go to a rehab center; however, he was denied by the wireless store manager because they are concerned about his history of ____. The patient continues to do the same, sleeping well, eating well, no suicidal ideation, no homicidal ideation, no paranoia, and no side effects. Working on discharge. So, hopefully I will be able to find him a place to go to. We will continue to work with the patient in group therapy, milieu therapy, and adjust the medications as needed. JOB# [id number]
[2018-05-05] MEDS: Aspirin 81mg Chewable Tab PO SCH (09:05)
[2018-05-05] MEDS: Nicotine 14 mg/24 hr Tdm TD SCH (09:07)
--- NOTE | 2018-05-05 10:29 | General Progress Note ---
Subjective - Review of Systems Service Date: 05/05/18 Subjective: Patient is confused, not oriented. Objective - Results Result Diagrams: 04/18/18 06:50 04/18/18 06:50 Recent Labs: Laboratory Last Values WBC 6.9 Th/cmm (4.8-10.8) 04/18/18 06:50 RBC 4.52 Mil/cmm (4.30-5.70) 04/18/18 06:50 Hgb 14.2 gm/dL (12-16) 04/18/18 06:50 Hct 42.2 % (41.0-60) 04/18/18 06:50 MCV 93.4 fl (80-99) 04/18/18 06:50 MCH 31.4 pg (26.0-30.0) H 04/18/18 06:50 MCHC Differential 33.7 pg (28.0-36.0) 04/18/18 06:50 RDW 13.3 % (11.5-20.0) 04/18/18 06:50 Plt Count 245 Th/cmm (150-400) 04/18/18 06:50 MPV 7.5 fl 04/18/18 06:50 Neutrophils % 45.1 % (40.0-80.0) 04/18/18 06:50 Lymphocytes % 40.1 % (20.0-50.0) 04/18/18 06:50 Monocytes % 9.7 % (2.0-10.0) 04/18/18 06:50 Eosinophils % 4.7 % (0.0-5.0) 04/18/18 06:50 Basophils % 0.4 % (0.0-2.0) 04/18/18 06:50 Sodium 141 mEq/L (136-145) 04/18/18 06:50 Potassium 4.1 mEq/L (3.5-5.1) 04/18/18 06:50 Chloride 106 mEq/L (98-107) 04/18/18 06:50 Carbon Dioxide 29.8 mEq/L (21.0-31.0) 04/18/18 06:50 Anion Gap 9.3 (7.0-16.0) 04/18/18 06:50 BUN 17 mg/dL (7-25) 04/18/18 06:50 Creatinine 0.7 mg/dL (0.7-1.3) 04/18/18 06:50 Est GFR ( Amer) > 60.0 ml/min (>90) 04/18/18 06:50 Est GFR (Non-Af Amer) > 60.0 ml/min 04/18/18 06:50 BUN/Creatinine Ratio 24.3 04/18/18 06:50 Glucose 123 mg/dL (70-105) H 04/18/18 06:50 Calcium 9.1 mg/dL (8.6-10.3) 04/18/18 06:50 Total Bilirubin 0.3 mg/dL (0.3-1.0) 04/18/18 06:50 AST 27 U/L (13-39) 04/18/18 06:50 ALT 25 U/L (7-52) 04/18/18 06:50 Alkaline Phosphatase 37 U/L (34-104) 04/18/18 06:50 Total Protein 6.2 gm/dL (6.0-8.3) 04/18/18 06:50 Albumin 3.2 gm/dL (4.2-5.5) L 04/18/18 06:50 Globulin 3.0 gm/dL 04/18/18 06:50 Albumin/Globulin Ratio 1.1 (1.0-1.8) 04/18/18 06:50 Triglycerides 121 mg/dL (<150) 04/17/18 07:00 Cholesterol 101 mg/dL (<200) 04/17/18 07:00 LDL Cholesterol Direct 59 mg/dL (75-193) L 04/17/18 07:00 HDL Cholesterol 28 mg/dL (23-92) 04/17/18 07:00 TSH 1.53 uIU/ml (0.34-5.60) 04/18/18 06:50 Urine Source CLEAN C 04/30/18 13:50 Urine Color YELLOW 04/30/18 13:50 Urine Clarity CLEAR (CLEAR) 04/30/18 13:50 Urine pH 7.5 (4.6 - 8.0) 04/30/18 13:50 Ur Specific [place] 1.020 (1.005-1.030) 04/30/18 13:50 Urine Protein 30 mg/dL (NEGATIVE) H 04/30/18 13:50 Urine Glucose (UA) NEGATIVE mg/dL (NEGATIVE) 04/30/18 13:50 Urine Ketones TRACE mg/dL (NEGATIVE) 04/30/18 13:50 Urine Blood NEGATIVE (NEGATIVE) 04/30/18 13:50 Urine Nitrate NEGATIVE (NEGATIVE) 04/30/18 13:50 Urine Bilirubin NEGATIVE (NEGATIVE) 04/30/18 13:50 Urine Urobilinogen 1.0 E.U./dL (0.2 - 1.0) 04/30/18 13:50 Ur Leukocyte Esterase NEGATIVE (NEGATIVE) 04/30/18 13:50 Urine RBC 0-2 /hpf (0-5) H 04/30/18 13:50 Urine WBC 0-2 /hpf (0-5) 04/30/18 13:50 Ur Epithelial Cells FEW /lpf (FEW) 04/30/18 13:50 Urine Bacteria OCCASIONAL /hpf (NONE SEEN) 04/30/18 13:50 - Physical Exam Vitals and I&O: Vital Signs Temp 97.6 F 05/05/18 06:59 Pulse 81 05/05/18 09:06 Resp 20 05/05/18 06:59 BP 120/70 05/05/18 09:06 Pulse Ox 96 05/05/18 06:59 Intake & Output 05/04/18 05/05/18 05/05/18 18:59 06:59 18:59 Intake Total 1500 Balance 1500 Intake: Oral 1500 Other: # Voids 3 # Bowel Movements 0 Stool Characteristics Soft Soft Soft Active Medications: Current Medications Acetaminophen (Tylenol) 650 mg PO Q4HR PRN PRN Reason: Mild Pain 1-3/ Temp above 100 Stop: 06/15/18 23:04 Last Admin: 04/26/18 18:08 Dose: 650 mg Al Hydrox/Mg Hydrox/Simethicone (Maalox) 30 ml PO Q4HR PRN PRN Reason: GI DISTRESS Stop: 06/16/18 08:47 Last Admin: 04/26/18 12:45 Dose: 30 ml Albuterol Sulfate (Albuterol 2.5mg/3ml Neb Ud) 2.5 mg HHN Q4HR PRN PRN Reason: Shortness of Breath Stop: 06/15/18 23:04 Last Admin: 05/04/18 19:14 Dose: 2.5 mg Amlodipine Besylate (Norvasc) 5 mg PO DAILY [facility] Stop: 06/16/18 08:59 Last Admin: 05/05/18 09:06 Dose: 5 mg Aspirin (Aspirin Chewable) 81 mg PO DAILY [facility] Stop: 06/16/18 08:59 Last Admin: 05/05/18 09:05 Dose: 81 mg Atorvastatin Calcium (Lipitor) 40 mg PO HS [facility]; Protocol Stop: 06/16/18 20:59 Last Admin: 05/04/18 21:19 Dose: 40 mg Divalproex Sodium (Depakote Dr) 1,000 mg PO BID [facility]; Protocol Stop: 06/20/18 08:59 Last Admin: 05/05/18 09:04 Dose: 1,000 mg Gabapentin (Neurontin) 400 mg PO TID [facility] Stop: 06/16/18 08:59 Last Admin: 05/05/18 09:05 Dose: 400 mg Glipizide (Glucotrol) 10 mg PO BID [facility] Stop: 06/16/18 08:59 Last Admin: 05/05/18 09:05 Dose: 10 mg Magnesium Hydroxide (Milk Of Magnesia) 30 ml PO HS PRN PRN Reason: Constipation Stop: 06/15/18 23:04 Last Admin: 05/01/18 15:30 Dose: 30 ml Metformin HCl (Glucophage) 1,000 mg PO BID [facility] Stop: 06/16/18 08:59 Last Admin: 05/05/18 09:05 Dose: 1,000 mg Miscellaneous (Clinical Monitoring) 1 ea MC DAILY PRN PRN Reason: RENAL MONITOR- METFORMIN Stop: 06/16/18 08:37 Nicotine (Nicotine Transdermal System) 14 mg TD DAILY [facility] Stop: 06/16/18 08:59 Last Admin: 05/05/18 09:07 Dose: 14 mg Olanzapine (Zyprexa) 15 mg PO HS [facility]; Protocol Stop: 06/16/18 20:59 Last Admin: 05/04/18 21:19 Dose: 15 mg Olanzapine (Zyprexa) 10 mg PO DAILY [facility]; Protocol Stop: 06/19/18 08:59 Last Admin: 05/05/18 09:05 Dose: 10 mg Paroxetine HCl (Paxil) 20 mg PO DAILY [facility]; Protocol Stop: 06/16/18 08:59 Last Admin: 05/05/18 09:05 Dose: 20 mg Propranolol HCl (Inderal) 5 mg PO BID [facility] Stop: 06/16/18 08:59 Last Admin: 05/05/18 09:06 Dose: 5 mg Tamsulosin HCl (Flomax) 0.4 mg PO DAILY [facility] Stop: 06/16/18 08:59 Last Admin: 05/05/18 09:05 Dose: 0.4 mg Temazepam (Restoril) 15 mg PO HS PRN; Protocol PRN Reason: Insomnia Stop: 06/15/18 23:16 Last Admin: 05/04/18 22:24 Dose: 15 mg Trazodone HCl (Desyrel) 150 mg PO HS [facility]; Protocol Stop: 06/16/18 20:59 Last Admin: 05/04/18 21:19 Dose: 150 mg General: Alert, No acute distress, Other (Confused) HEENT: Atraumatic Neck: Supple Cardiovascular: Regular rate Lungs: Clear to auscultation Abdomen: Bowel sounds, Soft Extremities: Other (edema) Neurological: Other (Unstable gait) Skin: Other (Warm and dry) Psych/Mental Status: Other (Confused, not oriented) Assessment/Plan - Assessment Assessment: Patient is awake, alert, calm, in no acute distress, continuing been confused. Dx: 5150, schizophrenia, bipolar, DM, HTN, Hx of seizure. - Plan Plan: Patient is follow by Psychiatry, UA shows no UTI, will continue with home meds. Nutritional Asmnt/Malnutr-PDOC - Dietary Evaluation Malnutrition Findings (Please click <Entered> for more info): Nutritional Asmnt/Malnutrition Start: 04/21/18 10: 40 Text: Status: Complete Freq: Protocol: Document 04/21/18 10:40 JULIETTE (Rec: 04/21/18 10:45 JULIETTE HERNANDEZ [email or web address]) Nutritional Asmnt/Malnutrition Patient General Information Diagnosis psychosis Pertinent Medical Hx/Surgical Hx bipolar, schizophrenia, CAD, HTN, COPd, DM Subjective Information Pt asleep at time of visit, RN stated he does not like to talk Current Diet Order/ Nutrition Support regular Pertinent Medications lipitor, maalox, MOM, glucophage Pertinent Labs 04/19: Na 141, K 4.1, Cl 106, CO2 29.8, BUN 17, Cr 0.7, glucos 123, Ca 9.1 Nutritional Hx/Data Height 1.78 m Height (Calculated Centimeters) 177.8 Current Weight (lbs) 97.069 kg Weight (Calculated Kilograms) 97.1 Weight (Calculated Grams) 49347.8 Body Mass Index (BMI) 30.7 Weight Status Obese GI Symptoms GI Symptoms None Last BM 04/20 x 2 Cultural/Ethnic/Caodaism Belief unknown Usual diet at home regular Skin Integrity/Comment: bibi score 21 Current %PO Good (75-100%) Estimated Nutritional Goals BEE in Kcals: Adj wt of IBW Calories/Kcals/Kg 25-30kcals/kg Kcals Calculated 2024-2430kcals/day Protein: Adj wt of IBW Protein g/kg/kg Protein Calculated 81g/day Fluid: ml 2024-2430ml/day (1ml/kcal) Nutritional Problem 1. Problem Problem Obesity related to Etiology decreased nutrient needs as evidenced by Signs/Symptoms: BMI 30.7. Intervention/Recommendation Comments Recommend continuing Regular diet Expected Outcomes/Goals Expected Outcomes/Goals PO intake >75% of meals
[2018-05-05] MEDS: Albuterol Nebulizer 2.5mg/3mL HHN PRN (19:41)
--- NOTE | 2018-05-06 00:22 | Progress Notes ---
DATE: 05/05/2018 Case was discussed with staff of the patient, reviewed records. The patient continues to be awaiting placement, continues to be unpredictable, and impulsive. He continues to have poor insight and unable to make safe plan for self-care and needing redirection. No side effects of the medication, no sedation, no nausea, no extrapyramidal symptoms and we will continue outpatient group therapy, milieu therapy and adjust the medications as needed. [facility]# [id number]
[2018-05-06] MEDS: Aspirin 81mg Chewable Tab PO SCH (08:37)
[2018-05-06] MEDS: Nicotine 14 mg/24 hr Tdm TD SCH (08:41)
--- NOTE | 2018-05-06 11:02 | General Progress Note ---
Subjective - Review of Systems Service Date: 05/06/18 Subjective: Patient is confused, not oriented. Objective - Results Result Diagrams: 04/18/18 06:50 04/18/18 06:50 Recent Labs: Laboratory Last Values WBC 6.9 Th/cmm (4.8-10.8) 04/18/18 06:50 RBC 4.52 Mil/cmm (4.30-5.70) 04/18/18 06:50 Hgb 14.2 gm/dL (12-16) 04/18/18 06:50 Hct 42.2 % (41.0-60) 04/18/18 06:50 MCV 93.4 fl (80-99) 04/18/18 06:50 MCH 31.4 pg (26.0-30.0) H 04/18/18 06:50 MCHC Differential 33.7 pg (28.0-36.0) 04/18/18 06:50 RDW 13.3 % (11.5-20.0) 04/18/18 06:50 Plt Count 245 Th/cmm (150-400) 04/18/18 06:50 MPV 7.5 fl 04/18/18 06:50 Neutrophils % 45.1 % (40.0-80.0) 04/18/18 06:50 Lymphocytes % 40.1 % (20.0-50.0) 04/18/18 06:50 Monocytes % 9.7 % (2.0-10.0) 04/18/18 06:50 Eosinophils % 4.7 % (0.0-5.0) 04/18/18 06:50 Basophils % 0.4 % (0.0-2.0) 04/18/18 06:50 Sodium 141 mEq/L (136-145) 04/18/18 06:50 Potassium 4.1 mEq/L (3.5-5.1) 04/18/18 06:50 Chloride 106 mEq/L (98-107) 04/18/18 06:50 Carbon Dioxide 29.8 mEq/L (21.0-31.0) 04/18/18 06:50 Anion Gap 9.3 (7.0-16.0) 04/18/18 06:50 BUN 17 mg/dL (7-25) 04/18/18 06:50 Creatinine 0.7 mg/dL (0.7-1.3) 04/18/18 06:50 Est GFR ( Amer) > 60.0 ml/min (>90) 04/18/18 06:50 Est GFR (Non-Af Amer) > 60.0 ml/min 04/18/18 06:50 BUN/Creatinine Ratio 24.3 04/18/18 06:50 Glucose 123 mg/dL (70-105) H 04/18/18 06:50 Calcium 9.1 mg/dL (8.6-10.3) 04/18/18 06:50 Total Bilirubin 0.3 mg/dL (0.3-1.0) 04/18/18 06:50 AST 27 U/L (13-39) 04/18/18 06:50 ALT 25 U/L (7-52) 04/18/18 06:50 Alkaline Phosphatase 37 U/L (34-104) 04/18/18 06:50 Total Protein 6.2 gm/dL (6.0-8.3) 04/18/18 06:50 Albumin 3.2 gm/dL (4.2-5.5) L 04/18/18 06:50 Globulin 3.0 gm/dL 04/18/18 06:50 Albumin/Globulin Ratio 1.1 (1.0-1.8) 04/18/18 06:50 Triglycerides 121 mg/dL (<150) 04/17/18 07:00 Cholesterol 101 mg/dL (<200) 04/17/18 07:00 LDL Cholesterol Direct 59 mg/dL (75-193) L 04/17/18 07:00 HDL Cholesterol 28 mg/dL (23-92) 04/17/18 07:00 TSH 1.53 uIU/ml (0.34-5.60) 04/18/18 06:50 Urine Source CLEAN C 04/30/18 13:50 Urine Color YELLOW 04/30/18 13:50 Urine Clarity CLEAR (CLEAR) 04/30/18 13:50 Urine pH 7.5 (4.6 - 8.0) 04/30/18 13:50 Ur Specific [place] 1.020 (1.005-1.030) 04/30/18 13:50 Urine Protein 30 mg/dL (NEGATIVE) H 04/30/18 13:50 Urine Glucose (UA) NEGATIVE mg/dL (NEGATIVE) 04/30/18 13:50 Urine Ketones TRACE mg/dL (NEGATIVE) 04/30/18 13:50 Urine Blood NEGATIVE (NEGATIVE) 04/30/18 13:50 Urine Nitrate NEGATIVE (NEGATIVE) 04/30/18 13:50 Urine Bilirubin NEGATIVE (NEGATIVE) 04/30/18 13:50 Urine Urobilinogen 1.0 E.U./dL (0.2 - 1.0) 04/30/18 13:50 Ur Leukocyte Esterase NEGATIVE (NEGATIVE) 04/30/18 13:50 Urine RBC 0-2 /hpf (0-5) H 04/30/18 13:50 Urine WBC 0-2 /hpf (0-5) 04/30/18 13:50 Ur Epithelial Cells FEW /lpf (FEW) 04/30/18 13:50 Urine Bacteria OCCASIONAL /hpf (NONE SEEN) 04/30/18 13:50 - Physical Exam Vitals and I&O: Vital Signs Temp 98.1 F 05/06/18 06:50 Pulse 65 05/06/18 08:38 Resp 12 05/06/18 06:55 BP 126/70 05/06/18 08:38 Pulse Ox 95 05/06/18 06:55 Intake & Output 05/05/18 05/06/18 05/06/18 18:59 06:59 18:59 Intake Total 2170 Balance 2170 Intake: Oral 2170 Other: # Voids 1 # Bowel Movements 1 Stool Characteristics Soft Soft Active Medications: Current Medications Acetaminophen (Tylenol) 650 mg PO Q4HR PRN PRN Reason: Mild Pain 1-3/ Temp above 100 Stop: 06/15/18 23:04 Last Admin: 04/26/18 18:08 Dose: 650 mg Al Hydrox/Mg Hydrox/Simethicone (Maalox) 30 ml PO Q4HR PRN PRN Reason: GI DISTRESS Stop: 06/16/18 08:47 Last Admin: 04/26/18 12:45 Dose: 30 ml Albuterol Sulfate (Albuterol 2.5mg/3ml Neb Ud) 2.5 mg HHN Q4HR PRN PRN Reason: Shortness of Breath Stop: 06/15/18 23:04 Last Admin: 05/05/18 19:41 Dose: 2.5 mg Amlodipine Besylate (Norvasc) 5 mg PO DAILY [facility] Stop: 06/16/18 08:59 Last Admin: 05/06/18 08:38 Dose: 5 mg Aspirin (Aspirin Chewable) 81 mg PO DAILY [facility] Stop: 06/16/18 08:59 Last Admin: 05/06/18 08:37 Dose: 81 mg Atorvastatin Calcium (Lipitor) 40 mg PO HS [facility]; Protocol Stop: 06/16/18 20:59 Last Admin: 05/05/18 21:10 Dose: 40 mg Divalproex Sodium (Depakote Dr) 1,000 mg PO BID [facility]; Protocol Stop: 06/20/18 08:59 Last Admin: 05/06/18 08:36 Dose: 1,000 mg Gabapentin (Neurontin) 400 mg PO TID [facility] Stop: 06/16/18 08:59 Last Admin: 05/06/18 08:36 Dose: 400 mg Glipizide (Glucotrol) 10 mg PO BID [facility] Stop: 06/16/18 08:59 Last Admin: 05/06/18 08:36 Dose: 10 mg Magnesium Hydroxide (Milk Of Magnesia) 30 ml PO HS PRN PRN Reason: Constipation Stop: 06/15/18 23:04 Last Admin: 05/01/18 15:30 Dose: 30 ml Metformin HCl (Glucophage) 1,000 mg PO BID [facility] Stop: 06/16/18 08:59 Last Admin: 05/06/18 08:37 Dose: 1,000 mg Miscellaneous (Clinical Monitoring) 1 ea MC DAILY PRN PRN Reason: RENAL MONITOR- METFORMIN Stop: 06/16/18 08:37 Nicotine (Nicotine Transdermal System) 14 mg TD DAILY [facility] Stop: 06/16/18 08:59 Last Admin: 05/06/18 08:41 Dose: 14 mg Olanzapine (Zyprexa) 15 mg PO HS [facility]; Protocol Stop: 06/16/18 20:59 Last Admin: 05/05/18 21:11 Dose: 15 mg Olanzapine (Zyprexa) 10 mg PO DAILY [facility]; Protocol Stop: 06/19/18 08:59 Last Admin: 05/06/18 08:37 Dose: 10 mg Paroxetine HCl (Paxil) 20 mg PO DAILY [facility]; Protocol Stop: 06/16/18 08:59 Last Admin: 05/06/18 08:37 Dose: 20 mg Propranolol HCl (Inderal) 5 mg PO BID [facility] Stop: 06/16/18 08:59 Last Admin: 05/06/18 08:37 Dose: 5 mg Tamsulosin HCl (Flomax) 0.4 mg PO DAILY [facility] Stop: 06/16/18 08:59 Last Admin: 05/06/18 08:37 Dose: 0.4 mg Temazepam (Restoril) 15 mg PO HS PRN; Protocol PRN Reason: Insomnia Stop: 06/15/18 23:16 Last Admin: 05/05/18 21:12 Dose: 15 mg Trazodone HCl (Desyrel) 150 mg PO HS [facility]; Protocol Stop: 06/16/18 20:59 Last Admin: 05/05/18 21:11 Dose: 150 mg General: Alert, No acute distress, Other (Confused) HEENT: Atraumatic Neck: Supple Cardiovascular: Regular rate Lungs: Clear to auscultation Abdomen: Bowel sounds, Soft Extremities: Other (edema) Neurological: Other (Unstable gait) Skin: Other (Warm and dry) Psych/Mental Status: Other (Confused, not oriented) Assessment/Plan - Assessment Assessment: Patient is awake, alert, calm, in no acute distress, continuing been confused. Dx: 5150, schizophrenia, bipolar, DM, HTN, Hx of seizure. - Plan Plan: Patient is follow by Psychiatry, UA shows no UTI, will continue with home meds. Nutritional Asmnt/Malnutr-PDOC - Dietary Evaluation Malnutrition Findings (Please click <Entered> for more info): Nutritional Asmnt/Malnutrition Start: 04/21/18 10: 40 Text: Status: Complete Freq: Protocol: Document 04/21/18 10:40 JULIETTE (Rec: 04/21/18 10:45 JULIETTE HERNANDEZ- [email or web address]) Nutritional Asmnt/Malnutrition Patient General Information Diagnosis psychosis Pertinent Medical Hx/Surgical Hx bipolar, schizophrenia, CAD, HTN, COPd, DM Subjective Information Pt asleep at time of visit, RN stated he does not like to talk Current Diet Order/ Nutrition Support regular Pertinent Medications lipitor, maalox, MOM, glucophage Pertinent Labs 04/19: Na 141, K 4.1, Cl 106, CO2 29.8, BUN 17, Cr 0.7, glucos 123, Ca 9.1 Nutritional Hx/Data Height 1.78 m Height (Calculated Centimeters) 177.8 Current Weight (lbs) 97.069 kg Weight (Calculated Kilograms) 97.1 Weight (Calculated Grams) 20054.8 Body Mass Index (BMI) 30.7 Weight Status Obese GI Symptoms GI Symptoms None Last BM 04/20 x 2 Cultural/Ethnic/Mu-Ism Belief unknown Usual diet at home regular Skin Integrity/Comment: bibi score 21 Current %PO Good (75-100%) Estimated Nutritional Goals BEE in Kcals: Adj wt of IBW Calories/Kcals/Kg 25-30kcals/kg Kcals Calculated 2024-2430kcals/day Protein: Adj wt of IBW Protein g/kg/kg Protein Calculated 81g/day Fluid: ml 2024-2430ml/day (1ml/kcal) Nutritional Problem 1. Problem Problem Obesity related to Etiology decreased nutrient needs as evidenced by Signs/Symptoms: BMI 30.7. Intervention/Recommendation Comments Recommend continuing Regular diet Expected Outcomes/Goals Expected Outcomes/Goals PO intake >75% of meals
--- NOTE | 2018-05-06 22:54 | Progress Notes ---
DATE: 05/06/2018 SUBJECTIVE: Case was discussed with staff of the patient, reviewed records. The patient continues to wait a placement as his conservator need to approve the placement and apparently they did not accept him, though he was referred to. He continues to have poor insight, unpredictable, impulsive, needing redirection. Continues to be unable to make safe plan for self-care. He is sleeping better and eating better. He is in denial about any current intent to harm himself or anybody. No side effects of the medication, no sedation, no nausea, no extrapyramidal symptoms. We will continue with outpatient group therapy, milieu therapy, and adjust medications as needed. [facility]# [id number]
[2018-05-07] MEDS: Aspirin 81mg Chewable Tab PO SCH (08:14)
[2018-05-07] MEDS: Nicotine 14 mg/24 hr Tdm TD SCH (08:20)
--- NOTE | 2018-05-07 08:40 | General Progress Note ---
Subjective - Review of Systems Service Date: 05/07/18 Subjective: Patient is complaining of articulations pain. Objective - Results Result Diagrams: 04/18/18 06:50 04/18/18 06:50 Recent Labs: Laboratory Last Values WBC 6.9 Th/cmm (4.8-10.8) 04/18/18 06:50 RBC 4.52 Mil/cmm (4.30-5.70) 04/18/18 06:50 Hgb 14.2 gm/dL (12-16) 04/18/18 06:50 Hct 42.2 % (41.0-60) 04/18/18 06:50 MCV 93.4 fl (80-99) 04/18/18 06:50 MCH 31.4 pg (26.0-30.0) H 04/18/18 06:50 MCHC Differential 33.7 pg (28.0-36.0) 04/18/18 06:50 RDW 13.3 % (11.5-20.0) 04/18/18 06:50 Plt Count 245 Th/cmm (150-400) 04/18/18 06:50 MPV 7.5 fl 04/18/18 06:50 Neutrophils % 45.1 % (40.0-80.0) 04/18/18 06:50 Lymphocytes % 40.1 % (20.0-50.0) 04/18/18 06:50 Monocytes % 9.7 % (2.0-10.0) 04/18/18 06:50 Eosinophils % 4.7 % (0.0-5.0) 04/18/18 06:50 Basophils % 0.4 % (0.0-2.0) 04/18/18 06:50 Sodium 141 mEq/L (136-145) 04/18/18 06:50 Potassium 4.1 mEq/L (3.5-5.1) 04/18/18 06:50 Chloride 106 mEq/L (98-107) 04/18/18 06:50 Carbon Dioxide 29.8 mEq/L (21.0-31.0) 04/18/18 06:50 Anion Gap 9.3 (7.0-16.0) 04/18/18 06:50 BUN 17 mg/dL (7-25) 04/18/18 06:50 Creatinine 0.7 mg/dL (0.7-1.3) 04/18/18 06:50 Est GFR ( Amer) > 60.0 ml/min (>90) 04/18/18 06:50 Est GFR (Non-Af Amer) > 60.0 ml/min 04/18/18 06:50 BUN/Creatinine Ratio 24.3 04/18/18 06:50 Glucose 123 mg/dL (70-105) H 04/18/18 06:50 Calcium 9.1 mg/dL (8.6-10.3) 04/18/18 06:50 Total Bilirubin 0.3 mg/dL (0.3-1.0) 04/18/18 06:50 AST 27 U/L (13-39) 04/18/18 06:50 ALT 25 U/L (7-52) 04/18/18 06:50 Alkaline Phosphatase 37 U/L (34-104) 04/18/18 06:50 Total Protein 6.2 gm/dL (6.0-8.3) 04/18/18 06:50 Albumin 3.2 gm/dL (4.2-5.5) L 04/18/18 06:50 Globulin 3.0 gm/dL 04/18/18 06:50 Albumin/Globulin Ratio 1.1 (1.0-1.8) 04/18/18 06:50 Triglycerides 121 mg/dL (<150) 04/17/18 07:00 Cholesterol 101 mg/dL (<200) 04/17/18 07:00 LDL Cholesterol Direct 59 mg/dL (75-193) L 04/17/18 07:00 HDL Cholesterol 28 mg/dL (23-92) 04/17/18 07:00 TSH 1.53 uIU/ml (0.34-5.60) 04/18/18 06:50 Urine Source CLEAN C 04/30/18 13:50 Urine Color YELLOW 04/30/18 13:50 Urine Clarity CLEAR (CLEAR) 04/30/18 13:50 Urine pH 7.5 (4.6 - 8.0) 04/30/18 13:50 Ur Specific [place] 1.020 (1.005-1.030) 04/30/18 13:50 Urine Protein 30 mg/dL (NEGATIVE) H 04/30/18 13:50 Urine Glucose (UA) NEGATIVE mg/dL (NEGATIVE) 04/30/18 13:50 Urine Ketones TRACE mg/dL (NEGATIVE) 04/30/18 13:50 Urine Blood NEGATIVE (NEGATIVE) 04/30/18 13:50 Urine Nitrate NEGATIVE (NEGATIVE) 04/30/18 13:50 Urine Bilirubin NEGATIVE (NEGATIVE) 04/30/18 13:50 Urine Urobilinogen 1.0 E.U./dL (0.2 - 1.0) 04/30/18 13:50 Ur Leukocyte Esterase NEGATIVE (NEGATIVE) 04/30/18 13:50 Urine RBC 0-2 /hpf (0-5) H 04/30/18 13:50 Urine WBC 0-2 /hpf (0-5) 04/30/18 13:50 Ur Epithelial Cells FEW /lpf (FEW) 04/30/18 13:50 Urine Bacteria OCCASIONAL /hpf (NONE SEEN) 04/30/18 13:50 - Physical Exam Vitals and I&O: Vital Signs Temp 97.5 F 05/07/18 06:19 Pulse 65 05/07/18 08:16 Resp 12 05/07/18 06:50 BP 114/63 05/07/18 08:16 Pulse Ox 92 05/07/18 06:50 Intake & Output 05/06/18 05/07/18 05/07/18 18:59 06:59 18:59 Intake Total 1350 720 Balance 1350 720 Intake: Oral 1350 720 Other: # Voids 4 2 # Bowel Movements 1 0 Stool Characteristics Soft Active Medications: Current Medications Acetaminophen (Tylenol) 650 mg PO Q4HR PRN PRN Reason: Mild Pain 1-3/ Temp above 100 Stop: 06/15/18 23:04 Last Admin: 04/26/18 18:08 Dose: 650 mg Al Hydrox/Mg Hydrox/Simethicone (Maalox) 30 ml PO Q4HR PRN PRN Reason: GI DISTRESS Stop: 06/16/18 08:47 Last Admin: 04/26/18 12:45 Dose: 30 ml Albuterol Sulfate (Albuterol 2.5mg/3ml Neb Ud) 2.5 mg HHN Q4HR PRN PRN Reason: Shortness of Breath Stop: 06/15/18 23:04 Last Admin: 05/05/18 19:41 Dose: 2.5 mg Amlodipine Besylate (Norvasc) 5 mg PO DAILY [facility] Stop: 06/16/18 08:59 Last Admin: 05/07/18 08:16 Dose: 5 mg Aspirin (Aspirin Chewable) 81 mg PO DAILY [facility] Stop: 06/16/18 08:59 Last Admin: 05/07/18 08:14 Dose: 81 mg Atorvastatin Calcium (Lipitor) 40 mg PO HS [facility]; Protocol Stop: 06/16/18 20:59 Last Admin: 05/06/18 20:54 Dose: 40 mg Divalproex Sodium (Depakote Dr) 1,000 mg PO BID [facility]; Protocol Stop: 06/20/18 08:59 Last Admin: 05/07/18 08:15 Dose: 1,000 mg Gabapentin (Neurontin) 400 mg PO TID [facility] Stop: 06/16/18 08:59 Last Admin: 05/07/18 08:14 Dose: 400 mg Glipizide (Glucotrol) 10 mg PO BID [facility] Stop: 06/16/18 08:59 Last Admin: 05/07/18 08:15 Dose: 10 mg Ibuprofen (Motrin) 800 mg PO TID PRN PRN Reason: Pain (Moderate) Stop: 07/06/18 08:34 Magnesium Hydroxide (Milk Of Magnesia) 30 ml PO HS PRN PRN Reason: Constipation Stop: 06/15/18 23:04 Last Admin: 05/01/18 15:30 Dose: 30 ml Metformin HCl (Glucophage) 1,000 mg PO BID [facility] Stop: 06/16/18 08:59 Last Admin: 05/07/18 08:16 Dose: 1,000 mg Miscellaneous (Clinical Monitoring) 1 ea MC DAILY PRN PRN Reason: RENAL MONITOR- METFORMIN Stop: 06/16/18 08:37 Nicotine (Nicotine Transdermal System) 14 mg TD DAILY [facility] Stop: 06/16/18 08:59 Last Admin: 05/07/18 08:20 Dose: 14 mg Olanzapine (Zyprexa) 15 mg PO [facility]; Protocol Stop: 06/16/18 20:59 Last Admin: 05/06/18 20:55 Dose: 15 mg Olanzapine (Zyprexa) 10 mg PO DAILY [facility]; Protocol Stop: 06/19/18 08:59 Last Admin: 05/07/18 08:14 Dose: 10 mg Paroxetine HCl (Paxil) 20 mg PO DAILY [facility]; Protocol Stop: 06/16/18 08:59 Last Admin: 05/07/18 08:15 Dose: 20 mg Propranolol HCl (Inderal) 5 mg PO BID [facility] Stop: 06/16/18 08:59 Last Admin: 05/07/18 08:15 Dose: 5 mg Tamsulosin HCl (Flomax) 0.4 mg PO DAILY [facility] Stop: 06/16/18 08:59 Last Admin: 05/07/18 08:14 Dose: 0.4 mg Temazepam (Restoril) 15 mg PO HS PRN; Protocol PRN Reason: Insomnia Stop: 06/15/18 23:16 Last Admin: 05/06/18 20:56 Dose: 15 mg Trazodone HCl (Desyrel) 150 mg PO HS [facility]; Protocol Stop: 06/16/18 20:59 Last Admin: 05/06/18 20:55 Dose: 150 mg General: Alert, No acute distress, Other (Confused) HEENT: Atraumatic Neck: Supple Cardiovascular: Regular rate Lungs: Clear to auscultation Abdomen: Bowel sounds, Soft Extremities: Other (edema) Neurological: Other (Unstable gait) Skin: Other (Warm and dry) Psych/Mental Status: Other (Confused, not oriented) Assessment/Plan - Assessment Assessment: Patient is awake, alert, calm, in no acute distress, continuing been confused. Dx: 5150, schizophrenia, bipolar, DM, HTN, Hx of seizure. - Plan Plan: Patient is follow by Psychiatry, UA shows no UTI, will continue with home meds. Nutritional Asmnt/Malnutr-PDOC - Dietary Evaluation Malnutrition Findings (Please click <Entered> for more info): Nutritional Asmnt/Malnutrition Start: 04/21/18 10: 40 Text: Status: Complete Freq: Protocol: Document 04/21/18 10:40 JULIETTE (Rec: 04/21/18 10:45 JULIETTE HERNANDEZ- [email or web address]) Nutritional Asmnt/Malnutrition Patient General Information Diagnosis psychosis Pertinent Medical Hx/Surgical Hx bipolar, schizophrenia, CAD, HTN, COPd, DM Subjective Information Pt asleep at time of visit, RN stated he does not like to talk Current Diet Order/ Nutrition Support regular Pertinent Medications lipitor, maalox, MOM, glucophage Pertinent Labs 04/19: Na 141, K 4.1, Cl 106, CO2 29.8, BUN 17, Cr 0.7, glucos 123, Ca 9.1 Nutritional Hx/Data Height 1.78 m Height (Calculated Centimeters) 177.8 Current Weight (lbs) 97.069 kg Weight (Calculated Kilograms) 97.1 Weight (Calculated Grams) 30935.8 Body Mass Index (BMI) 30.7 Weight Status Obese GI Symptoms GI Symptoms None Last BM 04/20 x 2 Cultural/Ethnic/Jewish Belief unknown Usual diet at home regular Skin Integrity/Comment: bibi score 21 Current %PO Good (75-100%) Estimated Nutritional Goals BEE in Kcals: Adj wt of IBW Calories/Kcals/Kg 25-30kcals/kg Kcals Calculated 2024-2430kcals/day Protein: Adj wt of IBW Protein g/kg/kg Protein Calculated 81g/day Fluid: ml 2024-2430ml/day (1ml/kcal) Nutritional Problem 1. Problem Problem Obesity related to Etiology decreased nutrient needs as evidenced by Signs/Symptoms: BMI 30.7. Intervention/Recommendation Comments Recommend continuing Regular diet Expected Outcomes/Goals Expected Outcomes/Goals PO intake >75% of meals
[2018-05-08] MEDS: Aspirin 81mg Chewable Tab PO SCH (08:54)
[2018-05-08] MEDS: Nicotine 14 mg/24 hr Tdm TD SCH (08:56)
--- NOTE | 2018-05-08 09:12 | General Progress Note ---
Subjective - Review of Systems Service Date: 05/08/18 Subjective: Patient is complaining of articulations pain. Objective - Results Result Diagrams: 04/18/18 06:50 04/18/18 06:50 Recent Labs: Laboratory Last Values WBC 6.9 Th/cmm (4.8-10.8) 04/18/18 06:50 RBC 4.52 Mil/cmm (4.30-5.70) 04/18/18 06:50 Hgb 14.2 gm/dL (12-16) 04/18/18 06:50 Hct 42.2 % (41.0-60) 04/18/18 06:50 MCV 93.4 fl (80-99) 04/18/18 06:50 MCH 31.4 pg (26.0-30.0) H 04/18/18 06:50 MCHC Differential 33.7 pg (28.0-36.0) 04/18/18 06:50 RDW 13.3 % (11.5-20.0) 04/18/18 06:50 Plt Count 245 Th/cmm (150-400) 04/18/18 06:50 MPV 7.5 fl 04/18/18 06:50 Neutrophils % 45.1 % (40.0-80.0) 04/18/18 06:50 Lymphocytes % 40.1 % (20.0-50.0) 04/18/18 06:50 Monocytes % 9.7 % (2.0-10.0) 04/18/18 06:50 Eosinophils % 4.7 % (0.0-5.0) 04/18/18 06:50 Basophils % 0.4 % (0.0-2.0) 04/18/18 06:50 Sodium 141 mEq/L (136-145) 04/18/18 06:50 Potassium 4.1 mEq/L (3.5-5.1) 04/18/18 06:50 Chloride 106 mEq/L (98-107) 04/18/18 06:50 Carbon Dioxide 29.8 mEq/L (21.0-31.0) 04/18/18 06:50 Anion Gap 9.3 (7.0-16.0) 04/18/18 06:50 BUN 17 mg/dL (7-25) 04/18/18 06:50 Creatinine 0.7 mg/dL (0.7-1.3) 04/18/18 06:50 Est GFR ( Amer) > 60.0 ml/min (>90) 04/18/18 06:50 Est GFR (Non-Af Amer) > 60.0 ml/min 04/18/18 06:50 BUN/Creatinine Ratio 24.3 04/18/18 06:50 Glucose 123 mg/dL (70-105) H 04/18/18 06:50 Calcium 9.1 mg/dL (8.6-10.3) 04/18/18 06:50 Total Bilirubin 0.3 mg/dL (0.3-1.0) 04/18/18 06:50 AST 27 U/L (13-39) 04/18/18 06:50 ALT 25 U/L (7-52) 04/18/18 06:50 Alkaline Phosphatase 37 U/L (34-104) 04/18/18 06:50 Total Protein 6.2 gm/dL (6.0-8.3) 04/18/18 06:50 Albumin 3.2 gm/dL (4.2-5.5) L 04/18/18 06:50 Globulin 3.0 gm/dL 04/18/18 06:50 Albumin/Globulin Ratio 1.1 (1.0-1.8) 04/18/18 06:50 Triglycerides 121 mg/dL (<150) 04/17/18 07:00 Cholesterol 101 mg/dL (<200) 04/17/18 07:00 LDL Cholesterol Direct 59 mg/dL (75-193) L 04/17/18 07:00 HDL Cholesterol 28 mg/dL (23-92) 04/17/18 07:00 TSH 1.53 uIU/ml (0.34-5.60) 04/18/18 06:50 Urine Source CLEAN C 04/30/18 13:50 Urine Color YELLOW 04/30/18 13:50 Urine Clarity CLEAR (CLEAR) 04/30/18 13:50 Urine pH 7.5 (4.6 - 8.0) 04/30/18 13:50 Ur Specific [place] 1.020 (1.005-1.030) 04/30/18 13:50 Urine Protein 30 mg/dL (NEGATIVE) H 04/30/18 13:50 Urine Glucose (UA) NEGATIVE mg/dL (NEGATIVE) 04/30/18 13:50 Urine Ketones TRACE mg/dL (NEGATIVE) 04/30/18 13:50 Urine Blood NEGATIVE (NEGATIVE) 04/30/18 13:50 Urine Nitrate NEGATIVE (NEGATIVE) 04/30/18 13:50 Urine Bilirubin NEGATIVE (NEGATIVE) 04/30/18 13:50 Urine Urobilinogen 1.0 E.U./dL (0.2 - 1.0) 04/30/18 13:50 Ur Leukocyte Esterase NEGATIVE (NEGATIVE) 04/30/18 13:50 Urine RBC 0-2 /hpf (0-5) H 04/30/18 13:50 Urine WBC 0-2 /hpf (0-5) 04/30/18 13:50 Ur Epithelial Cells FEW /lpf (FEW) 04/30/18 13:50 Urine Bacteria OCCASIONAL /hpf (NONE SEEN) 04/30/18 13:50 - Physical Exam Vitals and I&O: Vital Signs Temp 98.3 F 05/08/18 06:44 Pulse 67 05/08/18 08:56 Resp 18 05/08/18 06:44 BP 110/61 05/08/18 08:56 Pulse Ox 93 05/08/18 06:44 Intake & Output 05/07/18 05/08/18 05/08/18 18:59 06:59 18:59 Intake Total 240 Balance 240 Intake: Oral 240 Other: # Voids 2 2 # Bowel Movements 0 Stool Characteristics Soft Active Medications: Current Medications Acetaminophen (Tylenol) 650 mg PO Q4HR PRN PRN Reason: Mild Pain 1-3/ Temp above 100 Stop: 06/15/18 23:04 Last Admin: 04/26/18 18:08 Dose: 650 mg Al Hydrox/Mg Hydrox/Simethicone (Maalox) 30 ml PO Q4HR PRN PRN Reason: GI DISTRESS Stop: 06/16/18 08:47 Last Admin: 04/26/18 12:45 Dose: 30 ml Albuterol Sulfate (Albuterol 2.5mg/3ml Neb Ud) 2.5 mg HHN Q4HR PRN PRN Reason: Shortness of Breath Stop: 06/15/18 23:04 Last Admin: 05/05/18 19:41 Dose: 2.5 mg Amlodipine Besylate (Norvasc) 5 mg PO DAILY [facility] Stop: 06/16/18 08:59 Last Admin: 05/08/18 08:54 Dose: 5 mg Aspirin (Aspirin Chewable) 81 mg PO DAILY [facility] Stop: 06/16/18 08:59 Last Admin: 05/08/18 08:54 Dose: 81 mg Atorvastatin Calcium (Lipitor) 40 mg PO HS [facility]; Protocol Stop: 06/16/18 20:59 Last Admin: 05/07/18 20:49 Dose: 40 mg Divalproex Sodium (Depakote Dr) 1,000 mg PO BID [facility]; Protocol Stop: 06/20/18 08:59 Last Admin: 05/08/18 08:53 Dose: 1,000 mg Gabapentin (Neurontin) 400 mg PO TID [facility] Stop: 06/16/18 08:59 Last Admin: 05/08/18 08:54 Dose: 400 mg Glipizide (Glucotrol) 10 mg PO BID [facility] Stop: 06/16/18 08:59 Last Admin: 05/08/18 08:54 Dose: 10 mg Ibuprofen (Motrin) 800 mg PO TID PRN PRN Reason: Pain (Moderate) Stop: 07/06/18 08:59 Magnesium Hydroxide (Milk Of Magnesia) 30 ml PO HS PRN PRN Reason: Constipation Stop: 06/15/18 23:04 Last Admin: 05/01/18 15:30 Dose: 30 ml Metformin HCl (Glucophage) 1,000 mg PO BID [facility] Stop: 06/16/18 08:59 Last Admin: 05/08/18 08:54 Dose: 1,000 mg Miscellaneous (Clinical Monitoring) 1 ea MC DAILY PRN PRN Reason: RENAL MONITOR- METFORMIN Stop: 06/16/18 08:37 Nicotine (Nicotine Transdermal System) 14 mg TD DAILY [facility] Stop: 06/16/18 08:59 Last Admin: 05/08/18 08:56 Dose: Not Given Olanzapine (Zyprexa) 15 mg PO HS [facility]; Protocol Stop: 06/16/18 20:59 Last Admin: 05/07/18 20:49 Dose: 15 mg Olanzapine (Zyprexa) 10 mg PO DAILY [facility]; Protocol Stop: 06/19/18 08:59 Last Admin: 05/08/18 08:54 Dose: 10 mg Paroxetine HCl (Paxil) 20 mg PO DAILY [facility]; Protocol Stop: 06/16/18 08:59 Last Admin: 05/08/18 08:53 Dose: 20 mg Propranolol HCl (Inderal) 5 mg PO BID [facility] Stop: 06/16/18 08:59 Last Admin: 05/08/18 08:56 Dose: 5 mg Tamsulosin HCl (Flomax) 0.4 mg PO DAILY [facility] Stop: 06/16/18 08:59 Last Admin: 05/08/18 08:53 Dose: 0.4 mg Temazepam (Restoril) 15 mg PO HS [facility]; Protocol PRN Reason: Insomnia Stop: 06/15/18 23:16 Last Admin: 05/07/18 20:49 Dose: 15 mg Trazodone HCl (Desyrel) 150 mg PO HS [facility]; Protocol Stop: 06/16/18 20:59 Last Admin: 05/07/18 20:48 Dose: 150 mg General: Alert, No acute distress, Other (Confused) HEENT: Atraumatic Neck: Supple Cardiovascular: Regular rate Lungs: Clear to auscultation Abdomen: Bowel sounds, Soft Extremities: Other (edema) Neurological: Other (Unstable gait) Skin: Other (Warm and dry) Psych/Mental Status: Other (Confused, not oriented) Assessment/Plan - Assessment Assessment: Patient is awake, alert, calm, in no acute distress, continuing been confused. Dx: 5150, schizophrenia, bipolar, DM, HTN, Hx of seizure. - Plan Plan: Patient is follow by Psychiatry, UA shows no UTI, will continue with home meds. Nutritional Asmnt/Malnutr-PDOC - Dietary Evaluation Malnutrition Findings (Please click <Entered> for more info): Nutritional Asmnt/Malnutrition Start: 04/21/18 10: 40 Text: Status: Complete Freq: Protocol: Document 04/21/18 10:40 JULIETTE (Rec: 04/21/18 10:45 JULIETTE HERNANDEZ- [email or web address]) Nutritional Asmnt/Malnutrition Patient General Information Diagnosis psychosis Pertinent Medical Hx/Surgical Hx bipolar, schizophrenia, CAD, HTN, COPd, DM Subjective Information Pt asleep at time of visit, RN stated he does not like to talk Current Diet Order/ Nutrition Support regular Pertinent Medications lipitor, maalox, MOM, glucophage Pertinent Labs 04/19: Na 141, K 4.1, Cl 106, CO2 29.8, BUN 17, Cr 0.7, glucos 123, Ca 9.1 Nutritional Hx/Data Height 1.78 m Height (Calculated Centimeters) 177.8 Current Weight (lbs) 97.069 kg Weight (Calculated Kilograms) 97.1 Weight (Calculated Grams) 18105.8 Body Mass Index (BMI) 30.7 Weight Status Obese GI Symptoms GI Symptoms None Last BM 04/20 x 2 Cultural/Ethnic/Jain Belief unknown Usual diet at home regular Skin Integrity/Comment: bibi score 21 Current %PO Good (75-100%) Estimated Nutritional Goals BEE in Kcals: Adj wt of IBW Calories/Kcals/Kg 25-30kcals/kg Kcals Calculated 202-2430kcals/day Protein: Adj wt of IBW Protein g/kg/kg Protein Calculated 81g/day Fluid: ml 202-2430ml/day (1ml/kcal) Nutritional Problem 1. Problem Problem Obesity related to Etiology decreased nutrient needs as evidenced by Signs/Symptoms: BMI 30.7. Intervention/Recommendation Comments Recommend continuing Regular diet Expected Outcomes/Goals Expected Outcomes/Goals PO intake >75% of meals
--- NOTE | 2018-05-08 12:04 | Diagnostic Imaging Report ---
Portable chest x-ray History: Tuberculosis screening Allowing for portable technique the heart size is normal. No focal pulmonary parenchymal processes. No hilar or mediastinal abnormalities. Mild scoliosis and degenerative changes seen to the spine. Partial visualization of what appears to be deformity about the right humeral head. If needed, dedicated shoulder radiographs would provide additional assessment. Impression: 1. No acute abnormalities. . No radiographic evidence of tuberculosis. 2. Partial visualization of what appears to be deformity about the right humeral head. If needed, dedicated shoulder radiographs would provide additional assessment.
[2018-05-08] MEDS: Albuterol Nebulizer 2.5mg/3mL HHN PRN (19:32)
[2018-05-09] MEDS: Aspirin 81mg Chewable Tab PO SCH (08:43)
[2018-05-09] MEDS: Nicotine 14 mg/24 hr Tdm TD SCH (08:45)
--- NOTE | 2018-05-09 10:36 | General Progress Note ---
Subjective - Review of Systems Service Date: 05/09/18 Subjective: Patient is complaining of articulations pain. Objective - Results Result Diagrams: 04/18/18 06:50 04/18/18 06:50 Recent Labs: Laboratory Last Values WBC 6.9 Th/cmm (4.8-10.8) 04/18/18 06:50 RBC 4.52 Mil/cmm (4.30-5.70) 04/18/18 06:50 Hgb 14.2 gm/dL (12-16) 04/18/18 06:50 Hct 42.2 % (41.0-60) 04/18/18 06:50 MCV 93.4 fl (80-99) 04/18/18 06:50 MCH 31.4 pg (26.0-30.0) H 04/18/18 06:50 MCHC Differential 33.7 pg (28.0-36.0) 04/18/18 06:50 RDW 13.3 % (11.5-20.0) 04/18/18 06:50 Plt Count 245 Th/cmm (150-400) 04/18/18 06:50 MPV 7.5 fl 04/18/18 06:50 Neutrophils % 45.1 % (40.0-80.0) 04/18/18 06:50 Lymphocytes % 40.1 % (20.0-50.0) 04/18/18 06:50 Monocytes % 9.7 % (2.0-10.0) 04/18/18 06:50 Eosinophils % 4.7 % (0.0-5.0) 04/18/18 06:50 Basophils % 0.4 % (0.0-2.0) 04/18/18 06:50 Sodium 141 mEq/L (136-145) 04/18/18 06:50 Potassium 4.1 mEq/L (3.5-5.1) 04/18/18 06:50 Chloride 106 mEq/L (98-107) 04/18/18 06:50 Carbon Dioxide 29.8 mEq/L (21.0-31.0) 04/18/18 06:50 Anion Gap 9.3 (7.0-16.0) 04/18/18 06:50 BUN 17 mg/dL (7-25) 04/18/18 06:50 Creatinine 0.7 mg/dL (0.7-1.3) 04/18/18 06:50 Est GFR ( Amer) > 60.0 ml/min (>90) 04/18/18 06:50 Est GFR (Non-Af Amer) > 60.0 ml/min 04/18/18 06:50 BUN/Creatinine Ratio 24.3 04/18/18 06:50 Glucose 123 mg/dL (70-105) H 04/18/18 06:50 Calcium 9.1 mg/dL (8.6-10.3) 04/18/18 06:50 Total Bilirubin 0.3 mg/dL (0.3-1.0) 04/18/18 06:50 AST 27 U/L (13-39) 04/18/18 06:50 ALT 25 U/L (7-52) 04/18/18 06:50 Alkaline Phosphatase 37 U/L (34-104) 04/18/18 06:50 Total Protein 6.2 gm/dL (6.0-8.3) 04/18/18 06:50 Albumin 3.2 gm/dL (4.2-5.5) L 04/18/18 06:50 Globulin 3.0 gm/dL 04/18/18 06:50 Albumin/Globulin Ratio 1.1 (1.0-1.8) 04/18/18 06:50 Triglycerides 121 mg/dL (<150) 04/17/18 07:00 Cholesterol 101 mg/dL (<200) 04/17/18 07:00 LDL Cholesterol Direct 59 mg/dL (75-193) L 04/17/18 07:00 HDL Cholesterol 28 mg/dL (23-92) 04/17/18 07:00 TSH 1.53 uIU/ml (0.34-5.60) 04/18/18 06:50 Urine Source CLEAN C 04/30/18 13:50 Urine Color YELLOW 04/30/18 13:50 Urine Clarity CLEAR (CLEAR) 04/30/18 13:50 Urine pH 7.5 (4.6 - 8.0) 04/30/18 13:50 Ur Specific [place] 1.020 (1.005-1.030) 04/30/18 13:50 Urine Protein 30 mg/dL (NEGATIVE) H 04/30/18 13:50 Urine Glucose (UA) NEGATIVE mg/dL (NEGATIVE) 04/30/18 13:50 Urine Ketones TRACE mg/dL (NEGATIVE) 04/30/18 13:50 Urine Blood NEGATIVE (NEGATIVE) 04/30/18 13:50 Urine Nitrate NEGATIVE (NEGATIVE) 04/30/18 13:50 Urine Bilirubin NEGATIVE (NEGATIVE) 04/30/18 13:50 Urine Urobilinogen 1.0 E.U./dL (0.2 - 1.0) 04/30/18 13:50 Ur Leukocyte Esterase NEGATIVE (NEGATIVE) 04/30/18 13:50 Urine RBC 0-2 /hpf (0-5) H 04/30/18 13:50 Urine WBC 0-2 /hpf (0-5) 04/30/18 13:50 Ur Epithelial Cells FEW /lpf (FEW) 04/30/18 13:50 Urine Bacteria OCCASIONAL /hpf (NONE SEEN) 04/30/18 13:50 - Physical Exam Vitals and I&O: Vital Signs Temp 98.4 F 05/09/18 06:23 Pulse 65 05/09/18 08:46 Resp 16 05/09/18 07:18 BP 124/80 05/09/18 08:46 Pulse Ox 94 05/09/18 07:18 Intake & Output 05/08/18 05/09/18 05/09/18 18:59 06:59 18:59 Intake Total 1800 120 Balance 1800 120 Intake: Oral 1800 120 Other: # Voids 4 1 # Bowel Movements 0 0 Stool Characteristics Soft Soft Active Medications: Current Medications Acetaminophen (Tylenol) 650 mg PO Q4HR PRN PRN Reason: Mild Pain 1-3/ Temp above 100 Stop: 06/15/18 23:04 Last Admin: 04/26/18 18:08 Dose: 650 mg Al Hydrox/Mg Hydrox/Simethicone (Maalox) 30 ml PO Q4HR PRN PRN Reason: GI DISTRESS Stop: 06/16/18 08:47 Last Admin: 04/26/18 12:45 Dose: 30 ml Albuterol Sulfate (Albuterol 2.5mg/3ml Neb Ud) 2.5 mg HHN Q4HR PRN PRN Reason: Shortness of Breath Stop: 06/15/18 23:04 Last Admin: 05/08/18 19:32 Dose: 2.5 mg Amlodipine Besylate (Norvasc) 5 mg PO DAILY [facility] Stop: 06/16/18 08:59 Last Admin: 05/09/18 08:42 Dose: 5 mg Aspirin (Aspirin Chewable) 81 mg PO DAILY [facility] Stop: 06/16/18 08:59 Last Admin: 05/09/18 08:43 Dose: 81 mg Atorvastatin Calcium (Lipitor) 40 mg PO HS [facility]; Protocol Stop: 06/16/18 20:59 Last Admin: 05/08/18 20:33 Dose: 40 mg Divalproex Sodium (Depakote Dr) 1,000 mg PO BID [facility]; Protocol Stop: 06/20/18 08:59 Last Admin: 05/09/18 08:44 Dose: 1,000 mg Gabapentin (Neurontin) 400 mg PO TID [facility] Stop: 06/16/18 08:59 Last Admin: 05/09/18 08:44 Dose: 400 mg Glipizide (Glucotrol) 10 mg PO BID [facility] Stop: 06/16/18 08:59 Last Admin: 05/09/18 08:44 Dose: 10 mg Ibuprofen (Motrin) 800 mg PO TID PRN PRN Reason: Pain (Moderate) Stop: 07/06/18 08:59 Magnesium Hydroxide (Milk Of Magnesia) 30 ml PO HS PRN PRN Reason: Constipation Stop: 06/15/18 23:04 Last Admin: 05/01/18 15:30 Dose: 30 ml Metformin HCl (Glucophage) 1,000 mg PO BID [facility] Stop: 06/16/18 08:59 Last Admin: 05/09/18 08:44 Dose: 1,000 mg Miscellaneous (Clinical Monitoring) 1 ea MC DAILY PRN PRN Reason: RENAL MONITOR- METFORMIN Stop: 06/16/18 08:37 Nicotine (Nicotine Transdermal System) 14 mg TD DAILY [facility] Stop: 06/16/18 08:59 Last Admin: 05/09/18 08:45 Dose: Not Given Olanzapine (Zyprexa) 15 mg PO HS [facility]; Protocol Stop: 06/16/18 20:59 Last Admin: 05/08/18 20:50 Dose: 15 mg Olanzapine (Zyprexa) 10 mg PO DAILY [facility]; Protocol Stop: 06/19/18 08:59 Last Admin: 05/09/18 08:45 Dose: 10 mg Paroxetine HCl (Paxil) 20 mg PO DAILY [facility]; Protocol Stop: 06/16/18 08:59 Last Admin: 05/09/18 08:45 Dose: 20 mg Propranolol HCl (Inderal) 5 mg PO BID [facility] Stop: 06/16/18 08:59 Last Admin: 05/09/18 08:46 Dose: 5 mg Tamsulosin HCl (Flomax) 0.4 mg PO DAILY [facility] Stop: 06/16/18 08:59 Last Admin: 05/09/18 08:48 Dose: 0.4 mg Temazepam (Restoril) 15 mg PO HS PRN; Protocol PRN Reason: Insomnia Stop: 07/07/18 19:35 Last Admin: 05/08/18 20:33 Dose: 15 mg Trazodone HCl (Desyrel) 150 mg PO HS [facility]; Protocol Stop: 06/16/18 20:59 Last Admin: 05/08/18 20:33 Dose: 150 mg General: Alert, No acute distress, Other (Confused) HEENT: Atraumatic Neck: Supple Cardiovascular: Regular rate Lungs: Clear to auscultation Abdomen: Bowel sounds, Soft Extremities: Other (edema) Neurological: Other (Unstable gait) Skin: Other (Warm and dry) Psych/Mental Status: Other (Confused, not oriented) Assessment/Plan - Assessment Assessment: Patient is awake, alert, calm, in no acute distress, continuing been confused. Dx: 5150, schizophrenia, bipolar, DM, HTN, Hx of seizure. - Plan Plan: Patient is follow by Psychiatry, UA shows no UTI, will continue with home meds. Nutritional Asmnt/Malnutr-PDOC - Dietary Evaluation Malnutrition Findings (Please click <Entered> for more info): Nutritional Asmnt/Malnutrition Start: 04/21/18 10: 40 Text: Status: Complete Freq: Protocol: Document 04/21/18 10:40 JULIETTE (Rec: 04/21/18 10:45 JULIETTE HERNANDEZ- [id number]) Nutritional Asmnt/Malnutrition Patient General Information Diagnosis psychosis Pertinent Medical Hx/Surgical Hx bipolar, schizophrenia, CAD, HTN, COPd, DM Subjective Information Pt asleep at time of visit, RN stated he does not like to talk Current Diet Order/ Nutrition Support regular Pertinent Medications lipitor, maalox, MOM, glucophage Pertinent Labs 04/19: Na 141, K 4.1, Cl 106, CO2 29.8, BUN 17, Cr 0.7, glucos 123, Ca 9.1 Nutritional Hx/Data Height 1.78 m Height (Calculated Centimeters) 177.8 Current Weight (lbs) 97.069 kg Weight (Calculated Kilograms) 97.1 Weight (Calculated Grams) 84307.8 Body Mass Index (BMI) 30.7 Weight Status Obese GI Symptoms GI Symptoms None Last BM 04/20 x 2 Cultural/Ethnic/L[employer] Day Belief unknown Usual diet at home regular Skin Integrity/Comment: bibi score 21 Current %PO Good (75-100%) Estimated Nutritional Goals BEE in Kcals: Adj wt of IBW Calories/Kcals/Kg 25-30kcals/kg Kcals Calculated 2024-2430kcals/day Protein: Adj wt of IBW Protein g/kg/kg Protein Calculated 81g/day Fluid: ml 2024-2430ml/day (1ml/kcal) Nutritional Problem 1. Problem Problem Obesity related to Etiology decreased nutrient needs as evidenced by Signs/Symptoms: BMI 30.7. Intervention/Recommendation Comments Recommend continuing Regular diet Expected Outcomes/Goals Expected Outcomes/Goals PO intake >75% of meals
--- NOTE | 2018-05-09 20:56 | Progress Notes ---
DATE: 05/08/2018 SUBJECTIVE: Chart reviewed and the patient interviewed. Also discussed the patient's condition with the staff and reviewed records and labs. The patient is still in irritable mood and the patient is still suspicious and somehow paranoid. The patient also is interacting minimally with peers and with others. He also is still wandering about placement, although he feels slightly more optimistic today because of a place him and it seems that they accepted him, but waiting for form that I did fill today and also prescription of his medications that also was done today. At the same time, we will continue to work on his discharge plans and also working on monitoring psychotropic medications and follow up closely. [facility]# [id number]
--- NOTE | 2018-05-09 21:23 | Progress Notes ---
DATE: 05/07/2018 SUBJECTIVE: Chart reviewed and the patient interviewed. Also discussed the patient's condition with the staff and reviewed records and labs. The patient is still depressed and anxious because of his long hospital stay. Also, casey saw operator, although I have been trying to discharge the patient yet, he is unable to bring up any place, any acceptance for the patient to be placed. Also, is still restless and he is still pacing at times and other times wants to be left alone because of his depression. No major behavioral problems. The patient also is answering the questions appropriately and socializing a little bit more. ASSESSMENT: The patient is still depressed and agitated. TREATMENT PLAN: Continue to monitor behavior and condition closely. Also, adjusting psychotropic medications and working on behavioral modification and most probably the most important is working on his discharge plans and placement issue. JOB# [id number]
== END 2018-05-09 14:20 | disposition home or self-care (01) | DRG 885 ==
LOC: GERO 20:07
PROVIDERS: ADMIT Psychiatry & Neurology Psychiatry; ATTEND Psychiatry & Neurology Psychiatry
DX: F25.0 Schizoaffective disorder, bipolar type (principal); F23 Brief psychotic disorder; I10 Essential (primary) hypertension; E11.9 Type 2 diabetes mellitus without complications; I25.10 Atherosclerotic heart disease of native coronary artery without angina pectoris; G40.909 Epilepsy, unspecified, not intractable, without status epilepticus; F41.9 Anxiety disorder, unspecified; J44.9 Chronic obstructive pulmonary disease, unspecified; Z79.82 Long term (current) use of aspirin; Z79.84 Long term (current) use of oral hypoglycemic drugs; Z88.8 Allergy status to other drugs, medicaments and biological substances
CPT/HCPCS: 36415-UA; 71045-TC; 80053-TC; 80061-TC; 81001-TC; 83036-90; 84443-TC; 85025-TC; 94640; 94760; J7051; J7613; Z7610

== ENCOUNTER 2019-02-28 14:48 | Inpatient (IN) | payer MEDICARE, MEDICAID ==
[2019-02-28 16:21] VITALS: BP 128/77
[2019-02-28] MEDS ORDERED: Dextrose 50% 50 mL Abboject IVP PRN (18:17)
[2019-02-28] MEDS ORDERED: GLUCAGON HCl 1 MG KIT IM PRN (18:17)
[2019-02-28] MEDS: Insulin Glargine 100 units/ml 10ml Vial SUBQ SCH (20:47)
[2019-02-28] MEDS: INSULIN LISPRO SLIDING SCALE 100 UNITS/ML UNIT SUBQ SCH (20:53)
[2019-02-28] MEDS ORDERED: SALMETEROL INH SCH (21:00)
[2019-02-28] MEDS ORDERED: FLUTICASONE INH SCH (21:00)
[2019-03-01] MEDS: INSULIN LISPRO SLIDING SCALE 100 UNITS/ML UNIT SUBQ SCH ×4 (06:49→20:12)
[2019-03-01] MEDS: Multivitamin Tab PO SCH (09:39)
[2019-03-01] MEDS ORDERED: Albuterol Nebulizer 2.5mg/3mL HHN SCH (13:00)
[2019-03-01] MEDS: Budesonide 0.5 Mg/2 mL Ud HHN SCH ×2 (15:32→18:45)
[2019-03-01] MEDS ORDERED: Albuterol Nebulizer 2.5mg/3mL HHN PRN (17:42)
--- NOTE | 2019-03-01 17:53 | History and Physical ---
History of Present Illness - HPI Chief Complaint: Increased in agitation, delusion Claiming devil will kill him HPI: Patient was send due to increased in agitation, patient was claiming Devil will kill him, hearing voices. Vital Signs: Last Vital Signs Temp 97.9 F 03/01/19 15:59 Pulse 90 03/01/19 15:59 Resp 19 03/01/19 15:59 BP 136/77 03/01/19 15:59 Pulse Ox 98 03/01/19 15:59 Past Medical History Cardiovascular: Report: CAD, HTN Pulmonary: Report: COPD GAME SHOW HOST: Report: Dementia GI: Report: No Pertinent Hx Psych: Report: Psychosis, Schizophrenia Musculoskeletal: Report: Weakness Rheumatologic: Report: No pertinent Hx Infectious Disease: Report: No Pertinent Hx Renal/: Report: No Pertinent Hx Endocrine: Report: Diabetes Dermatology: Report: No Pertinent Hx - Past Surgical History Past Surgical History: No pertinent Hx Family Medical History - Family Member Mother History Unknown: Yes Ethnicity: Unknown Living Status: Unknown Social History Smoke: No Alcohol: None Drugs: None Lives: Long-Term Domestic Violence: Negative - Medications Home Medications: Home Medication Medication Instructions Recorded Type Albuterol Nebulizer 2.5mg/3mL 2.5 mg IH Q4HR PRN 12/17/17 History [Albuterol Neb UD*] Acetaminophen [Tylenol] 650 mg PO Q4HR PRN tab 12/22/17 Rx Al Hyd/Mg Hyd/Simethicone [Maalox] 30 ml PO Q4HR PRN udc 12/22/17 Rx Magnesium Hydroxide [Milk of 30 ml PO HS PRN udc 12/22/17 Rx Magnesia] Aspirin 1 tab PO DAILY #0 05/09/18 Rx Atorvastatin Calcium [Lipitor] 40 mg PO HS #0 05/09/[address] [Depakote DR] 1,000 mg PO BID tcp 05/09/18 Rx Glipizide [Glucotrol] 10 mg PO BID #0 tab 05/09/18 Rx Ibuprofen [Motrin*] 800 mg PO TID PRN tab 05/09/18 Rx Nicotine 14 mg/24 hr [Nicotine 14 mg TD DAILY #0 05/09/18 Rx Transdermal System] OLANZapine [ZyPREXA] 10 mg PO DAILY tab 05/09/18 Rx PARoxetine [Paxil] 20 mg PO DAILY tab 05/09/18 Rx Propranolol HCl [Inderal*] 5 mg PO BID tab 05/09/18 Rx Temazepam [Restoril*] 15 mg PO HS PRN cap 05/09/18 Rx amLODIPine Besylate [Norvasc] 5 mg PO DAILY tab 05/09/18 Rx traZODone HCl [Desyrel*] 150 mg PO HS tab 05/09/18 Rx Docusate Sodium [Colace] 100 mg PO DAILY 02/28/19 History Fluticasone/Salmeterol [Advair 1 inh INH Q12HR 02/28/19 History 250-50 Diskus] Gabapentin 100 mg PO HS 02/28/19 History Insulin Glargine [Lantus Insulin] 7 units SQ HS 02/28/19 History Lorazepam [Ativan] 0.5 mg PO Q6HR 02/28/19 History Multivit-Min/FA/Lycopen/Lutein 1 tab PO DAILY 02/28/19 History [Centrum Silver Men Tablet] OLANZapine [ZyPREXA] 15 mg PO HS 02/28/19 History QUEtiapine Fumarate [SEROquel] 75 mg PO TID 02/28/19 History Tamsulosin [Flomax] 0.8 mg PO DAILY 02/28/19 History Trihexyphenidyl HCl [Artane] 2 mg PO BID 02/28/19 History metFORMIN [Glucophage] 500 mg PO BID 02/28/19 History - Allergies Allergies/Adverse Reactions: Allergies Allergy/AdvReac Type Severity Reaction Status Date / Time No Known Allergies Allergy Verified 02/28/19 15:26 Review of Systems - Review of Systems Constitutional: Report: No Significant Eyes: Report: No Significant ENT: Report: No Significant Respiratory: Report: No Significant Cardiovascular: Report: No Significant Gastrointestinal: Report: No Significant Genitourinary: Report: No Significant Musculoskeletal: Report: No Significant Skin: Report: No Significant Neurological: Report: No Significant Physical Exam - Physical Exam HEENT: Report: Ears Nose Throat within normal limits Neck: Report: Within normal limits Cardiovascular Systems: Report: Regular, Rate and Rhythm Respiratory: Report: Breath Sounds are within normal limits Abdomen: Report: Non-tender to palpation Back: Report: Inspection of back is within normal limits. Extremities: Report: Non-tender to palpation. Neuro/Psych: Report: Disoriented to name time or place, Other (Agitated and delusional) - Lab Results All Lab Results last 24 hours: Laboratory Results - last 24 hr 02/28/19 20:06 POC Glucose 119 H - Assessment Assessment: Patient is awake, confused, agitated at moments. Dx: Psychosis, HTN, DM, BPH - Plan Plan: Patient is follow by Psychiatry, he is continue with some SNF meds. Labs are requested.
[2019-03-01] MEDS: Insulin Glargine 100 units/ml 10ml Vial SUBQ SCH (20:15)
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
[2019-03-02] MEDS: INSULIN LISPRO SLIDING SCALE 100 UNITS/ML UNIT SUBQ SCH ×4 (06:51→21:00)
[2019-03-02] MEDS: Multivitamin Tab PO SCH (09:38)
[2019-03-02] MEDS: Budesonide 0.5 Mg/2 mL Ud HHN SCH ×2 (09:55→19:20)
[2019-03-02] MEDS: Magnesium Hydroxide (MOM) 30 mL UDC PO PRN (19:20)
--- NOTE | 2019-03-02 20:25 | Progress Notes ---
DATE: 03/02/2019 SUBJECTIVE: The patient was asleep in bed when approached. The patient responded to verbal stimuli. The patient reported that he slept well last night. The patient reported that he has not been up for breakfast. The patient reported that he is doing okay last night. After this telegraphic typewriter operator chief left the room, the patient came to the nursing station and again asking when he will be discharged. When reassured that he will be discharged when we can see that he is doing better and not having as much anxiety and not preoccupied with his medications and not repeatedly coming to the nursing station requesting for different things and not believing that he is getting his medications then he will be discharged. The patient calmed down and went to the dining room for breakfast. OBJECTIVE: The patient seems to be less anxious and less preoccupied this morning. The staff reported that the patient was anxious and pacing last evening. The patient would come to nursing station and request for different things but one thing at a time. The patient would request for blanket. The patient request for sleeping medications. The staff reported that he was given Ativan, which appeared to be effective. The patient was also given Depakote and trazodone last night and finally the patient went to sleep and slept about 8 hours. ASSESSMENT: 1. Schizoaffective disorder. 2. 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 3. Generalized anxiety disorder. 4. Personality change due to medical condition. 5. Impulse control disorder, not otherwise specified. PLAN: We will continue the patient on current medications. The patient appeared to be responding reasonably well to the current medications. We will readjust medication as needed. JOB# [id number] JONATAN
[2019-03-02] MEDS: Insulin Glargine 100 units/ml 10ml Vial SUBQ SCH (21:00)
[2019-03-03] MEDS: INSULIN LISPRO SLIDING SCALE 100 UNITS/ML UNIT SUBQ SCH ×4 (06:42→20:11)
[2019-03-03] MEDS: Budesonide 0.5 Mg/2 mL Ud HHN SCH (08:58)
[2019-03-03] MEDS: Multivitamin Tab PO SCH (09:02)
[2019-03-03] MEDS: Insulin Glargine 100 units/ml 10ml Vial SUBQ SCH (21:42)
--- NOTE | 2019-03-04 00:52 | Progress Notes ---
DATE: 03/03/2019 SUBJECTIVE: The patient was asleep in bed when approached. The patient responded to verbal stimuli. The patient reported that he had been up for breakfast and did sleep well last night. Again, the patient continued to deny any auditory or visual hallucinations or delusion. The patient appeared to be calmer and not as anxious or restless like before. The patient did not repeat himself frequently like he did upon admission. The patient did not request to be discharged. The patient just asked when he is going to be discharged. When informed that he seems to be doing better that he is not approaching the staff as often as he used to and that he is more redirectable. The patient agreed and when told that he will be discharged when we see that he is not having the same behavior that he used to have when he was admitted, the patient accepted it. OBJECTIVE: The patient seemed calmer today. The patient stayed in bed after this group underwriter left the room. The patient did not come to the nursing station like he did the first 2 days. Staff reported that the patient seems to be doing okay. The patient had breakfast and had his cigarettes break this morning. The staff reported that the patient slept well last night and continued to eat well. Staff reported that the patient did not come to the nursing station repeatedly and requesting for different things like he did the last 2 days. The staff reported that the patient appeared to be responding to the medications that he is on at this time. ASSESSMENT: 1. Schizoaffective disorder. 2. 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 3. Generalized anxiety disorder. 4. Personality change due to medical condition. 5. Impulse control disorder, not otherwise specified. PLAN: We will continue the patient on current medications and monitor for his response to the medications. JOB# [id number] JONATAN
[2019-03-04] MEDS: INSULIN LISPRO SLIDING SCALE 100 UNITS/ML UNIT SUBQ SCH ×4 (06:56→21:44)
[2019-03-04] MEDS: Budesonide 0.5 Mg/2 mL Ud HHN SCH (07:00)
[2019-03-04] MEDS: Multivitamin Tab PO SCH (08:33)
[2019-03-04] MEDS: Insulin Glargine 100 units/ml 10ml Vial SUBQ SCH (21:43)
--- NOTE | 2019-03-05 00:30 | Progress Notes ---
DATE: 03/04/2019 SUBJECTIVE: The patient was asleep when approached. The patient responded to verbal stimuli. The patient reported that he is doing okay. The patient reported that he had been up for breakfast before returning to bed. The patient continued to deny any auditory or visual hallucination or delusion. Again, the patient asked when is he going to be discharged. When informed that he needs to be monitored for the next couple of days to see how he is responding to the current regimens of medications to make sure that he does not have recurrent episodes of being demanding, responding to internal stimuli, constantly going to nursing station to demand about his medications and requesting for different things. The patient appeared to be able to accept the explanation as to why he still needs to be here. OBJECTIVE: The patient continued to be able to accept reason as to why he still needs to be here for further monitoring, that he will be discharged when he can demonstrate that he does not have recurrent episodes of anxiety and agitation and repeatedly going to the nursing station requesting for different things. Again , why this field underwriter is, at the nursing station, dictating his progress note, the patient came and asked again when he is going to be discharged. When given the reason why he needs to be here a few more days, the patient was able to accept it and went back to his room. The staff reported that the patient continued to have some episodes of responding to internal stimuli. At times, he was impulsive and demanding, but redirectable. The patient has been taking his medication without any difficulty. The patient has been eating and sleeping well. The patient continued to keep to himself and not wanting to attend activities. ASSESSMENT: 1. Schizoaffective disorder. 2. Psychotic disorder and mood disorder, depressed due to medical condition. 3. Generalized anxiety disorder. 4. Personality change due to medical condition. 5. Impulse control disorder, not compromised specified. PLAN: We will continue the patient on current medications. We will reduce his Risperdal and see if the patient could be maintained on Zyprexa alone. JOB# [id number] JONATAN
[2019-03-05] MEDS: Budesonide 0.5 Mg/2 mL Ud HHN SCH (06:32)
[2019-03-05] MEDS: INSULIN LISPRO SLIDING SCALE 100 UNITS/ML UNIT SUBQ SCH ×4 (06:34→20:27)
[2019-03-05] MEDS: Multivitamin Tab PO SCH (08:12)
--- NOTE | 2019-03-05 08:51 | General Progress Note ---
Subjective - Review of Systems Service Date: 03/05/19 Subjective: I am fine Objective - Results Recent Labs: Laboratory Last Values POC Glucose 119 MG/DL (70 - 105) H 02/28/19 20:06 - Physical Exam Vitals and I&O: Vital Signs Temp 97.8 F 03/05/19 06:46 Pulse 66 03/05/19 08:20 Resp 18 03/05/19 06:46 BP 126/65 03/05/19 08:20 Pulse Ox 94 03/05/19 06:46 Intake & Output 03/04/19 03/05/19 03/05/19 18:59 06:59 18:59 Intake Total 1100 240 Balance 1100 240 Intake: Oral 1100 240 Other: # Voids 3 3 # Bowel Movements 1 0 Active Medications: Current Medications Acetaminophen (Tylenol) 650 mg PO Q4HR PRN PRN Reason: Mild Pain / Temp above 100 Stop: 04/29/19 18:11 Albuterol Sulfate (Albuterol 2.5mg/3ml Neb Ud) 2.5 mg HHN Q4HR PRN PRN Reason: Shortness of Breath Stop: 04/30/19 17:41 Amlodipine Besylate (Norvasc) 5 mg PO DAILY [facility] Stop: 05/01/19 08:59 Last Admin: 03/05/19 08:14 Dose: 5 mg Atorvastatin Calcium (Lipitor) 40 mg PO HS [facility]; Protocol Stop: 04/30/19 20:59 Last Admin: 03/04/19 20:10 Dose: 40 mg Budesonide (Pulmicort) 0.5 mg HHN BIDRT [facility]ATH[facility] Stop: 04/30/19 12:59 Last Admin: 03/05/19 06:32 Dose: Not Given Clonazepam (Klonopin) 0.5 mg PO BID [facility]; Protocol Stop: 04/30/19 16:59 Last Admin: 03/05/19 08:13 Dose: 0.5 mg Dextrose (D50w) 50 ml IVP PRN PRN PRN Reason: Blood Glucose less than 70 Stop: 04/29/19 18:16 Dextrose (Glutose 40%) 18.75 gm PO PRN PRN PRN Reason: Blood Glucose less than 70 Stop: 04/29/19 18:16 Divalproex Sodium (Depakote Sprinkle) 250 mg PO Q12HR [facility]ATH[facility]; Protocol Stop: 04/30/19 20:59 Last Admin: 03/05/19 08:14 Dose: 250 mg Docusate Sodium (Colace) 100 mg PO DAILY [facility] Stop: 04/30/19 08:59 Last Admin: 03/05/19 08:11 Dose: 100 mg Glipizide (Glucotrol) 10 mg PO BID [facility] Stop: 05/01/19 08:59 Last Admin: 03/05/19 08:12 Dose: 10 mg Glucagon (Glucagen) 1 mg IM PRN PRN PRN Reason: Blood Glucose less than 70 Stop: 04/29/19 18:16 Insulin Glargine (Lantus Insulin) 7 units SUBQ HS [facility] Stop: 04/29/19 20:59 Last Admin: 03/04/19 21:43 Dose: 7 units Insulin Human Lispro (Humalog Insulin Sliding Scale) 0 units SUBQ [facility]; Protocol Stop: 04/29/19 20:59 Last Admin: 03/05/19 06:34 Dose: Not Given Lorazepam (Ativan) 0.5 mg PO Q4HR PRN; Protocol PRN Reason: Anxiety Stop: 03/30/19 16:19 Last Admin: 03/04/19 13:58 Dose: 0.5 mg Magnesium Hydroxide (Milk Of Magnesia) 30 ml PO HS PRN PRN Reason: Constipation Stop: 04/29/19 18:11 Last Admin: 03/02/19 19:20 Dose: 30 ml Metformin HCl (Glucophage) 500 mg PO BID [facility] Stop: 04/30/19 08:59 Last Admin: 03/05/19 08:12 Dose: 500 mg Multivitamins/Vitamin C (Theragran) 1 tab PO DAILY [facility] Stop: 04/30/19 08:59 Last Admin: 03/05/19 08:12 Dose: 1 tab Olanzapine (Zyprexa) 20 mg PO HS [facility]; Protocol Stop: 04/30/19 20:59 Last Admin: 03/04/19 20:11 Dose: 20 mg Propranolol HCl (Inderal) 5 mg PO BID [facility] Stop: 05/01/19 08:59 Last Admin: 03/05/19 08:20 Dose: 5 mg Quetiapine Fumarate (Seroquel) 75 mg PO Q12HR [facility]; Protocol Stop: 05/03/19 20:59 Last Admin: 03/05/19 08:12 Dose: 75 mg Tamsulosin HCl (Flomax) 0.8 mg PO DAILY [facility] Stop: 04/30/19 08:59 Last Admin: 03/05/19 08:12 Dose: 0.8 mg Temazepam (Restoril) 15 mg PO HS PRN; Protocol PRN Reason: Insomnia Stop: 04/29/19 19:17 Last Admin: 03/04/19 20:10 Dose: 15 mg Trazodone HCl (Desyrel) 150 mg PO HS [facility]; Protocol Stop: 04/30/19 20:59 Last Admin: 03/04/19 20:10 Dose: 150 mg Trihexyphenidyl HCl (Artane) 2 mg PO BID [facility] Stop: 04/30/19 08:59 Last Admin: 03/05/19 08:14 Dose: 2 mg General: Alert, Other (Confused) HEENT: PERRLA Neck: Supple Cardiovascular: Regular rate Lungs: Clear to auscultation Abdomen: Bowel sounds Extremities: Other (No edema) Neurological: Normal gait Skin: Other (Dry and warm) Psych/Mental Status: Other (Confused) Assessment/Plan - Assessment Assessment: Patient is awake, confused, agitated at moments. Dx: Psychosis, HTN, DM, BPH. - Plan Plan: Patient is follow by Psychiatry, he is continue with some SNF meds. Will continue to monitor. Nutritional Asmnt/Malnutr-PDOC - Dietary Evaluation Malnutrition Findings (Please click <Entered> for more info): Nutritional Asmnt/Malnutrition Start: 03/02/19 11: 31 Text: Status: Complete Freq: Protocol: Document 03/02/19 11:32 MARLEN (Rec: 03/02/19 11:48 MARLEN HERNANDEZ [email or web address]) Nutritional Asmnt/Malnutrition Patient General Information Nutritional Screening Moderate Risk Diagnosis Psychosis Pertinent Medical Hx/Surgical Hx CAD, HTN, COPD, Dementia, Psychosis, schizophrenia, weakness, diabetes Subjective Information Patient walking around in the unit at time of visit. Current Diet Order/ Nutrition Support 60 gm CCHO Patient / S.O Not Indicated Pertinent Medications Lipitor, D50W, Colace, Glipizide, glucagon, Lantus, humalog, MOM, Metformin, Theragran Pertinent Labs No labs Nutritional Hx/Data Height 1.78 m Height (Calculated Centimeters) 177.8 Current Weight (lbs) 97.069 kg Weight (Calculated Kilograms) 97.1 Weight (Calculated Grams) 11521.8 [place] Body Weight 166 % [place] Body Weight 128 Body Mass Index (BMI) 30.7 Recent Weight Change No Weight Status Obese GI Symptoms GI Symptoms None Last BM none noted since admission Difficult in: None Food Allergies No Cultural/Ethnic/[place] Belief none indicated Usual diet at home unknown Skin Integrity/Comment: Cordell 23, Dryness Current %PO Good (75-100%) Estimated Nutritional Goals BEE in Kcals: Adj wt of IBW Calories/Kcals/Kg 80.9kg Adj BW 25-30 kcal/kg Kcals Calculated ~6423-2700 kcal/day Protein: Adj wt of IBW Protein g/k.8-1 gm/kg Protein Calculated ~65-80gm/day Fluid: ml ~0029-5718 ml/day (1 ml/kcal) Nutritional Problem No current Nutrition Prob Problem No nutrition diagnosis at this time Intervention/Recommendation Comments 1. Continue 60 gm CCHO diet as tolerated by patient. Expected Outcomes/Goals Expected Outcomes/Goals Oral intake >75% of meals, weight stable or trend toward ideal body weight, nutrition related labs WNL. F/U LR 03/09
[2019-03-05] MEDS: Insulin Glargine 100 units/ml 10ml Vial SUBQ SCH (20:27)
[2019-03-06] MEDS: INSULIN LISPRO SLIDING SCALE 100 UNITS/ML UNIT SUBQ SCH ×4 (06:33→20:41)
[2019-03-06] MEDS: Multivitamin Tab PO SCH (09:35)
--- NOTE | 2019-03-06 15:06 | Progress Notes ---
DATE: 03/05/2019 SUBJECTIVE: The patient was resting in bed when approached. The patient removed the towel from his forehead and opened his eyes. The patient remained calm and cooperative when talked to. The patient appeared much calmer with less pressured speech and flight of ideas. The patient again asked if he can be discharged today. When explained that he has been doing better, but he could be doing better than he is doing now with a little bit more adjustment of his medication, the patient was able to accept that. The patient stated that his son and grandchildren will be coming by to see him at [facility]. When explained that this conventional underwriter wanted to see him at a much better condition before his discharge so that his family will be happy to see that the patient has been doing very well, the patient smiled. The patient did not push to be discharged like he used to. The patient reported that he has been eating and sleeping okay, and that he attended activity today. OBJECTIVE: The patient appeared calmer and continued to be pleasant and smiled easily. The staff reported that the patient has been doing okay. He is less intrusive, less impulsive and not requesting for things, and more redirectable than when he first came in. The staff reported that the patient continued to take his medications without any difficulty. neurosurgery research director reported that the patient requested to talk to her individually, and so she did talk to the patient in his room. The staff reported that overall, the patient appeared to be doing better than when he first came in. The staff reported that at times, the patient still can be impulsive and persistent, repeating himself over and over, but not as much and more redirectable. The staff reported that the patient has been eating and sleeping well. ASSESSMENT: 1. Schizoaffective disorder. 2. Psychotic disorder and mood disorder, depressed due to medical condition. 3. Generalized anxiety disorder. 4. Personality change due to medical condition. 5. Impulse control disorder, not otherwise specified. PLAN: We will continue the patient on current medication. We will consider reducing Seroquel further and see if Seroquel can be discontinued before the patient is discharged. [facility]# [id number]
[2019-03-06] MEDS: Insulin Glargine 100 units/ml 10ml Vial SUBQ SCH (20:42)
--- NOTE | 2019-03-07 01:28 | Progress Notes ---
DATE: 03/06/2019 SUBJECTIVE: The patient was asleep in bed when approached. The patient responded to verbal stimuli. The patient removed the towel off of his forehead. The patient reported that he is doing okay, that he has been up earlier today. The patient reported that he continued to take his medications without any problem. The patient continued to deny any auditory or visual hallucination or delusion. The patient reported that he has not been to the nursing station requesting things like he used to. Again, the patient asked if he will be discharged today. When informed that his medications are being adjusted and that it will take a few more days to monitor how he is responding to the adjustment, the patient was able to accept the explanation and did not push the issue of wanting to be discharged today. OBJECTIVE: The patient continued to be calm and cooperative when engaged in conversation. The staff reported that the patient continued to exhibit some impulsivity, was quite demanding when it is time for a smoke break. Staff reported that the patient has not been coming to the nursing station as frequently as before and not being as demanding, as forceful as before. The staff reported that the patient continued to be eating and sleeping well. The patient came to the nursing station requesting for sleep medication about 9:30 last night. When given 15 mg of Restoril, the patient asked for 30 mg. When informed that his order is for 15 mg, the patient took the medication and slept well last night. ASSESSMENT: 1. Schizoaffective disorder. 2. Psychotic disorder and mood disorder, depressed due to medical condition. 3. Generalized anxiety disorder. 4. Personality change due to medical condition. 5. Impulse control disorder, not otherwise specified. PLAN: We will reduce Seroquel from 75 mg q. 12 hours to 75 mg at bedtime. We will maintain other medications. We will try to get the patient off of Seroquel before discharging the patient so that the patient will be maintained on only Zyprexa as the only antipsychotic. JOB# [id number]
[2019-03-07] MEDS: INSULIN LISPRO SLIDING SCALE 100 UNITS/ML UNIT SUBQ SCH ×4 (06:34→20:28)
[2019-03-07] MEDS: Budesonide 0.5 Mg/2 mL Ud HHN SCH (09:03)
[2019-03-07] MEDS: Multivitamin Tab PO SCH (09:07)
[2019-03-07] MEDS: Insulin Glargine 100 units/ml 10ml Vial SUBQ SCH (20:28)
--- NOTE | 2019-03-07 23:37 | Progress Notes ---
DATE: 03/07/2019 SUBJECTIVE: The patient was up in the hallway, holding 2 cigarettes. The patient was about to go out for a cigarette break. The patient was calm and pleasant. The patient reported that he is doing okay, eating and sleeping well. The patient denied any problem. The patient continued to request to be discharged. The patient admitted that he feels bored and has been requesting for things to eat. The patient continued to deny any auditory or visual hallucination or delusion. OBJECTIVE: The patient shows good improvement with current regimen of medications. The patient continued to be calm and more redirectable than upon admission. The staff reported that the patient has taken a shower and shave yesterday. The staff reported that the patient has been requesting for something to eat frequently yesterday. Staff reported that the patient still come into the nursing station at times. The patient has been sleeping well and has been compliant with his medications. ASSESSMENT: 1. Schizoaffective disorder. 2. 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 3. Generalized anxiety disorder. 4. Personality change due to medical condition. 5. Impulse control disorder, not otherwise specified. PLAN: The patient has shown improvement; however, the patient continued to have some episodes of impulsiveness and frequently requesting for something to eat as well as coming to the nursing station, even though the episodes have gone down. We will discontinue Seroquel and monitor the patient's response. We will try to maintain the patient on only one antipsychotic. JOB# [id number] JONATAN
[2019-03-08] MEDS: Budesonide 0.5 Mg/2 mL Ud HHN SCH ×2 (07:00→19:00)
[2019-03-08] MEDS: Multivitamin Tab PO SCH (08:21)
[2019-03-08] MEDS: INSULIN LISPRO SLIDING SCALE 100 UNITS/ML UNIT SUBQ SCH ×4 (08:29→21:43)
--- NOTE | 2019-03-08 08:34 | General Progress Note ---
Subjective - Review of Systems Service Date: 03/08/19 Subjective: I am fine. Objective - Results Recent Labs: Laboratory Last Values POC Glucose 95 MG/DL (70 - 105) 03/07/19 06:36 - Physical Exam Vitals and I&O: Vital Signs Temp 98.6 F 03/08/19 06:35 Pulse 77 03/08/19 08:22 Resp 20 03/08/19 06:35 BP 123/73 03/08/19 08:22 Pulse Ox 98 03/08/19 06:35 Intake & Output 03/07/19 03/08/19 03/08/19 18:59 06:59 18:59 Intake Total 120 Balance 120 Intake: Oral 120 Other: # Voids 3 Active Medications: Current Medications Acetaminophen (Tylenol) 650 mg PO Q4HR PRN PRN Reason: Mild Pain / Temp above 100 Stop: 04/29/19 18:11 Albuterol Sulfate (Albuterol 2.5mg/3ml Neb Ud) 2.5 mg HHN Q4HR PRN PRN Reason: Shortness of Breath Stop: 04/30/19 17:41 Amlodipine Besylate (Norvasc) 5 mg PO DAILY [facility] Stop: 05/01/19 08:59 Last Admin: 03/08/19 08:22 Dose: 5 mg Atorvastatin Calcium (Lipitor) 40 mg PO HS [facility]; Protocol Stop: 04/30/19 20:59 Last Admin: 03/07/19 20:25 Dose: 40 mg Budesonide (Pulmicort) 0.5 mg HHN BIDRT NATHAN Stop: 04/30/19 12:59 Last Admin: 03/07/19 09:03 Dose: Not Given Clonazepam (Klonopin) 0.5 mg PO BID [facility]; Protocol Stop: 04/30/19 16:59 Last Admin: 03/08/19 08:21 Dose: 0.5 mg Dextrose (Glutose 40%) 18.75 gm PO PRN PRN PRN Reason: Blood Glucose less than 70 Stop: 04/29/19 18:16 Divalproex Sodium (Depakote Sprinkle) 250 mg PO Q12HR [facility]; Protocol Stop: 04/30/19 20:59 Last Admin: 03/08/19 08:21 Dose: 250 mg Docusate Sodium (Colace) 100 mg PO DAILY [facility] Stop: 04/30/19 08:59 Last Admin: 03/08/19 08:22 Dose: 100 mg Glipizide (Glucotrol) 10 mg PO BID [facility] Stop: 05/01/19 08:59 Last Admin: 03/08/19 08:20 Dose: 10 mg Glucagon (Glucagen) 1 mg IM PRN PRN PRN Reason: Blood Glucose less than 70 Stop: 04/29/19 18:16 Insulin Glargine (Lantus Insulin) 7 units SUBQ [facility] Stop: 04/29/19 20:59 Last Admin: 03/07/19 20:28 Dose: 7 units Insulin Human Lispro (Humalog Insulin Sliding Scale) 0 units SUBQ [facility]; Protocol Stop: 04/29/19 20:59 Last Admin: 03/08/19 08:29 Dose: Not Given Magnesium Hydroxide (Milk Of Magnesia) 30 ml PO HS PRN PRN Reason: Constipation Stop: 04/29/19 18:11 Last Admin: 03/02/19 19:20 Dose: 30 ml Metformin HCl (Glucophage) 500 mg PO BID [facility] Stop: 04/30/19 08:59 Last Admin: 03/08/19 08:22 Dose: 500 mg Multivitamins/Vitamin C (Theragran) 1 tab PO DAILY [facility] Stop: 04/30/19 08:59 Last Admin: 03/08/19 08:21 Dose: 1 tab Olanzapine (Zyprexa) 20 mg PO [facility]; Protocol Stop: 04/30/19 20:59 Last Admin: 03/07/19 20:29 Dose: 20 mg Propranolol HCl (Inderal) 5 mg PO BID [facility] Stop: 05/01/19 08:59 Last Admin: 03/08/19 08:21 Dose: 5 mg Quetiapine Fumarate 50 mg/ (Quetiapine Fumarate 25 mg) 75 mg PO [facility] Stop: 05/05/19 20:59 Last Admin: 03/07/19 20:30 Dose: 75 mg Tamsulosin HCl (Flomax) 0.8 mg PO DAILY [facility] Stop: 04/30/19 08:59 Last Admin: 03/08/19 08:21 Dose: 0.8 mg Trazodone HCl (Desyrel) 150 mg PO [facility]; Protocol Stop: 04/30/19 20:59 Last Admin: 03/07/19 20:31 Dose: 150 mg Trihexyphenidyl HCl (Artane) 2 mg PO BID [facility] Stop: 04/30/19 08:59 Last Admin: 03/08/19 08:21 Dose: 2 mg General: Alert, Other (Confused) HEENT: PERRLA Neck: Supple Cardiovascular: Regular rate Lungs: Clear to auscultation Abdomen: Bowel sounds Extremities: Other (No edema) Neurological: Normal gait Skin: Other (Dry and warm) Psych/Mental Status: Other (Confused) Assessment/Plan - Assessment Assessment: Patient is awake, confused, agitated at moments. Dx: Psychosis, HTN, DM, BPH. - Plan Plan: Patient is follow by Psychiatry, he is continue with some SNF meds. Will continue to monitor. Possible discharge today Nutritional Asmnt/Malnutr-PDOC - Dietary Evaluation Malnutrition Findings (Please click <Entered> for more info): Nutritional Asmnt/Malnutrition Start: 03/02/19 11: 31 Text: Status: Complete Freq: Protocol: Document 03/02/19 11:32 MARLEN (Rec: 03/02/19 11:48 MMULPHILIPPE HERNANDEZ- [email or web address]) Nutritional Asmnt/Malnutrition Patient General Information Nutritional Screening Moderate Risk Diagnosis Psychosis Pertinent Medical Hx/Surgical Hx CAD, HTN, COPD, Dementia, Psychosis, schizophrenia, weakness, diabetes Subjective Information Patient walking around in the unit at time of visit. Current Diet Order/ [facility] / [facility] Not Indicated Pertinent Medications Lipitor, D50W, Colace, Glipizide, glucagon, Lantus, humalog, MOM, Metformin, Theragran Pertinent Labs No labs Nutritional Hx/Data Height 1.78 m Height (Calculated Centimeters) 177.8 Current Weight (lbs) 97.069 kg Weight (Calculated Kilograms) 97.1 Weight (Calculated Grams) 45289.8 [place] Body Weight 166 % [place] Body Weight 128 Body Mass Index (BMI) 30.7 Recent Weight Change No Weight Status Obese GI Symptoms GI Symptoms None Last BM none noted since admission Difficult in: None Food Allergies No Cultural/Ethnic/[place] Belief none indicated Usual diet at home unknown Skin Integrity/Comment: Cordell 23, Dryness Current %PO Good (75-100%) Estimated Nutritional Goals BEE in Kcals: Adj wt of IBW Calories/Kcals/Kg 80.9kg Adj BW 25-30 kcal/kg Kcals Calculated ~7662-6522 kcal/day Protein: Adj wt of IBW Protein g/k.8-1 gm/kg Protein Calculated ~65-80gm/day Fluid: ml ~2788-1648 ml/day (1 ml/kcal) Nutritional Problem No current Nutrition Prob Problem No nutrition diagnosis at this time Intervention/Recommendation Comments 1. Continue 60 gm CCHO diet as tolerated by patient. Expected Outcomes/Goals Expected Outcomes/Goals Oral intake >75% of meals, weight stable or trend toward ideal body weight, nutrition related labs WNL. F/U LR 03/09
[2019-03-08] MEDS: Magnesium Hydroxide (MOM) 30 mL UDC PO PRN (10:00)
[2019-03-08] MEDS: Insulin Glargine 100 units/ml 10ml Vial SUBQ SCH (21:46)
--- NOTE | 2019-03-09 04:07 | Progress Notes ---
DATE: 03/08/2019 SUBJECTIVE: The patient was up and about in the hallway. The patient was initially calm and cooperative. The patient reported that he has been eating and sleeping okay. The patient asked if he is going to be discharged today. When informed that his facility had reported that they do not have any available bed at this time and that his discharge will have to be delayed, the patient became unhappy. The patient repeatedly said that they are lying, that is when he was brought here, he was promised that they will have a bed for him. The patient's agitation gradually escalated. At one point, the patient came to the nursing station and banging his forehead on the counter. The staff was able to redirect the patient and took the patient away from the nursing station. Later on, the patient returned to the nursing station and yelling saying that he wanted to ; however, the patient denied any active plan or intention. The patient was repeatedly calling for this advertising copywriter. vacation planner had already talked to the patient and explained the situation; however, the patient is having difficulty accepting the fact that he cannot be discharged today. The patient asked if he could be discharged to a different facility. The patient did not want to accept the reason that his conservator is the only person who can determine if he could be discharged to a different facility. OBJECTIVE: The patient was calm when talked to initially. The patient had shown increased agitation when he realized that he will not be discharged today. The patient had episodes of yelling and exhibiting poor impulse control. However, the patient was redirectable at times. The staff reported that the patient has been eating and sleeping well. The patient has been compliant with his medications. ASSESSMENT: 1. Schizoaffective disorder. 2. Psychotic disorder and mood disorder, depressed due to medical condition. 3. Generalized anxiety disorder. 4. Personality change due to medical condition. 5. Impulse control disorder, not otherwise specified. PLAN: We will increase Depakote Sprinkle to 500 mg p.o. q.12 hours for poor impulse control. JOB# [id number] MTDLópez
[2019-03-09] MEDS: INSULIN LISPRO SLIDING SCALE 100 UNITS/ML UNIT SUBQ SCH ×4 (06:35→20:37)
[2019-03-09] MEDS: Budesonide 0.5 Mg/2 mL Ud HHN SCH (06:38)
[2019-03-09] MEDS: Multivitamin Tab PO SCH (09:20)
[2019-03-09] MEDS: Insulin Glargine 100 units/ml 10ml Vial SUBQ SCH (21:18)
--- NOTE | 2019-03-09 22:21 | Progress Notes ---
DATE: SUBJECTIVE: The patient was asleep in bed when approached. The patient responded to verbal and physical stimuli. The patient reported that he slept well last night. The patient did not exhibit any agitation or aggression this morning. The patient did not get angry for not able to be discharged yesterday. The patient did not ask any questions about it. The patient denied any auditory or visual hallucination or delusion. The patient stated that he will get up to eat a little bit. The patient has breakfast tray at bedside at this time. OBJECTIVE: The patient appeared to be calm and pleasant at this time. The patient did not exhibit any agitation, aggression or frustration. The staff reported that yesterday after he was informed that he will not be discharged, the patient continued to be restless and agitated, pacing. Patient had to be given a dose of Ativan to calm him down. The patient was able to calm down and able to sleep most of the night. The patient continued to take his medications without any problem. His Depakote has been increased to 500 mg p.o. q. 12 hours and he got his first dose last night. ASSESSMENT: 1. Schizoaffective disorder. 2. Psychotic disorder and mood disorder, depressed due to medical condition. 3. Generalized anxiety disorder. 4. Personality change due to medical condition. 5. Impulse control disorder, not otherwise specified. PLAN: The patient appeared to be able to control himself pretty well at this time. We will continue the patient on current medications. JOB# [id number]
[2019-03-10] MEDS: INSULIN LISPRO SLIDING SCALE 100 UNITS/ML UNIT SUBQ SCH ×3 (06:54→20:42)
[2019-03-10] MEDS: Budesonide 0.5 Mg/2 mL Ud HHN SCH (07:00)
[2019-03-10] MEDS: Multivitamin Tab PO SCH (09:19)
[2019-03-10] MEDS: Insulin Glargine 100 units/ml 10ml Vial SUBQ SCH (20:45)
[2019-03-10] MEDS ORDERED: OLANZAPINE PO SCH (21:00)
--- NOTE | 2019-03-10 21:44 | Progress Notes ---
DATE: 03/10/2019 SUBJECTIVE: The patient was asleep in bed with a towel over his forehead. The patient responded to verbal stimuli. The patient reported that he is doing okay, slept well last night. The patient asked if he can have 3 cigarettes during smoke break. When informed that the staff has to follow the hospital's policy, the patient stated that he has his own cigarettes. Again, had to be reminded that the staff has to follow the hospital's policy as to how many cigarettes patient could have each time. The patient again asked if he is going to be discharged tomorrow. The patient continued to complain that they lied to him that they will have a bed for him when he is ready to go back. The patient continued to be redirectable at this time. OBJECTIVE: The patient continued to be calm and cooperative and redirectable at this time. Staff reported that the patient continued to have episodes of being intrusive and repetitive, demanding for things to eat as well as to have more cigarettes. The patient would come to the nursing station and complained about things and demanding for things. The staff reported that the patient continued to exhibit signs and symptoms of being delusional. The staff reported that the patient talk to someone on the phone and was very upset and saying "you not do anything for me." The staff reported that the patient continued to take his medications without any problem. The staff reported that the patient is redirectable with some effort. The staff reported that the patient had to be given one dose of Ativan yesterday because of his increased level of agitation. ASSESSMENT: 1. Schizoaffective disorder. 2. Psychotic disorder and mood disorder, depressed due to medical condition. 3. Generalized anxiety disorder. 4. Personality change due to medical condition. 5. Impulse control disorder, not otherwise specified. PLAN: We will increase his Zyprexa to 25 mg p.o. at bedtime since the patient has been taken off of Seroquel, so the patient could be maintained on one antipsychotic. We will continue the Depakote and the other psychotropic medication. JOB# [id number] JONATAN
[2019-03-11] MEDS: INSULIN LISPRO SLIDING SCALE 100 UNITS/ML UNIT SUBQ SCH ×2 (06:39→11:48)
[2019-03-11] MEDS: Budesonide 0.5 Mg/2 mL Ud HHN SCH (08:39)
[2019-03-11] MEDS: Multivitamin Tab PO SCH (08:41)
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
== END 2019-03-11 15:00 | DRG 885 ==
LOC: GERO 14:50
PROVIDERS: ADMIT Psychiatry & Neurology Psychiatry; ATTEND Psychiatry & Neurology Psychiatry
DX: F25.9 Schizoaffective disorder, unspecified (principal); F29 Unspecified psychosis not due to a substance or known physiological condition; F63.9 Impulse disorder, unspecified; F07.0 Personality change due to known physiological condition; I10 Essential (primary) hypertension; E11.9 Type 2 diabetes mellitus without complications; N40.0 Benign prostatic hyperplasia without lower urinary tract symptoms; F41.1 Generalized anxiety disorder; I25.10 Atherosclerotic heart disease of native coronary artery without angina pectoris; F03.90 Unspecified dementia, unspecified severity, without behavioral disturbance, psychotic disturbance, mood disturbance, and anxiety; Z79.4 Long term (current) use of insulin
CPT/HCPCS: 82948-90; 83036-90; G0410; J1815; J7051; Z7610